=== PATIENT | male | born 1995 | race African-American/Black ===

== ENCOUNTER → 2016-10-22 | Outpatient (CLI) | payer MEDICAID ==
--- NOTE | 2016-10-22 18:41 | REP ---
Right foot four views : There is no fracture or dislocation. Mineralization and joint spaces are normal. There are no calcifications or foreign bodies. Impression: Negative right foot . Signed by Matias Valles MD 10/22/2016 06:33 P
== END ==
LOC: M LRY 18:04
PROVIDERS: ATTEND Nurse Practitioner Family
DX: M25.571 Pain in right ankle and joints of right foot (principal)

== ENCOUNTER 2017-02-19 16:41 | Emergency (ER) | payer MEDICAID, OTHER ==
[~2017-02-19] VITALS: Ht 170.2 cm; Wt 63.5 kg
[2017-02-19 16:41] VITALS: BP 147/78
[2017-02-19] MEDS ORDERED: IBUP600T26 PO (17:59)
[2017-02-19] MEDS ORDERED: CYCL10TA PO (17:59)
== END 2017-02-19 18:23 | disposition home or self-care (01) ==
LOC: M ED 18:16
DX: S46.912A Strain of unspecified muscle, fascia and tendon at shoulder and upper arm level, left arm, initial encounter (principal); S13.4XXA Sprain of ligaments of cervical spine, initial encounter; X58.XXXA Exposure to other specified factors, initial encounter; Y92.89 Other specified places as the place of occurrence of the external cause; Y93.89 Activity, other specified; Y99.9 Unspecified external cause status

== ENCOUNTER 2017-09-06 05:02 | Emergency (ER) | payer OTHER ==
[~2017-09-06] VITALS: Ht 172.7 cm; Wt 63.6 kg
[~2017-09-06 05:02] MED LIST: CYCL10TA PO; IBUP-1022 PO
[2017-09-06 06:01] LABS: ANION GAP 4 MEQ/L (8-16); BLOOD UREA NITROGEN 16 MG/DL (7-18); CALCIUM LEVEL 8.9 MG/DL (8.5-10.1); CARBON DIOXIDE LEVEL 33 MEQ/L (21-32); CHLORIDE LEVEL 103 MEQ/L (98-107); CREATININE FOR GFR 1.07 MG/DL (0.70-1.30); GLOMERULAR FILTRATION RATE > 60.0 (>60); GLUCOSE, FASTING 94 MG/DL (70-105); MAGNESIUM LEVEL 2.1 MG/DL (1.8-2.4); POTASSIUM SERUM 3.5 MEQ/L (3.5-5.1); SODIUM LEVEL 140 MEQ/L (136-145)
--- NOTE | 2017-09-06 06:32 | ECGEPIP ---
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
[2017-09-06 06:51] LABS: T UPTAKE 35 % (33-40); THYROXINE (T4) 12.7 UG/DL (4.5-12.0)
[2017-09-06 06:59] LABS: METHADONE URINE NEGATIVE (NEGATIVE)
[2017-09-06] MEDS ORDERED: ATIV1TAB7 PO (07:53)
[2017-09-06 08:11] VITALS: BP 140/86
== END 2017-09-06 08:14 | disposition home or self-care (01) ==
LOC: M ED 05:02
DX: F41.1 Generalized anxiety disorder (principal); R00.2 Palpitations; F17.210 Nicotine dependence, cigarettes, uncomplicated

== ENCOUNTER 2017-11-14 15:44 | Emergency (ER) | payer OTHER ==
[2017-11-14 16:49] LABS: KETONE, URINE AUTO RFX NEGATIVE (NEGATIVE); LEUKOCYTE ESTERASE UR AUTO RFX TRACE (NEGATIVE); NITRITE, URINE AUTO RFX NEGATIVE (NEGATIVE); RBC, URINE AUTO RFX 6 /HPF (0-3); SPECIFIC GRAVITY UR AUTO RFX 1.023 (1.002-1.035); SQUAM EPITHELIAL CELL UR AURFX 0 /HPF (0-6); WBC, URINE AUTO RFX 10 /HPF (0-3)
[2017-11-14] MEDS: AZITHROMYCIN 250 MG TAB PO (18:27)
[2017-11-14] MEDS: cefTRIAXone SOD 250 MG VIAL (J0696) IM (18:27)
[2017-11-15 12:00] LABS: CHLAMYDIA DNA AMPLIFICATION NEGATIVE (NEGATIVE); GC DNA AMPLIFICATION NEGATIVE (NEGATIVE)
== END 2017-11-14 18:30 | disposition home or self-care (01) ==
LOC: M ED 15:44
DX: Z20.2 Contact with and (suspected) exposure to infections with a predominantly sexual mode of transmission (principal); F41.9 Anxiety disorder, unspecified; Z77.098 Contact with and (suspected) exposure to other hazardous, chiefly nonmedicinal, chemicals
CPT/HCPCS: J0696

== ENCOUNTER 2017-11-16 14:23 | Emergency (ER) | payer OTHER ==
[2017-11-16 15:46] LABS: APPEARANCE, URINE CLEAR (CLEAR); BACTERIA, URINE AUTO NEGATIVE (NEGATIVE); BILIRUBIN, URINE AUTO NEGATIVE (NEGATIVE); BLOOD, URINE BLOOD NEGATIVE (NEGATIVE); COLOR, URINE YELLOW (YELLOW); GLUCOSE, URINE (UA) AUTO NEGATIVE (NEGATIVE); KETONE, URINE AUTO NEGATIVE (NEGATIVE); LEUKOCYTE ESTERASE, URINE AUTO NEGATIVE (NEGATIVE); MUCUS, URINE SMALL (NEGATIVE); NITRITE, URINE AUTO NEGATIVE (NEGATIVE); PROTEIN, URINE AUTO NEGATIVE (NEGATIVE); RBC, URINE AUTO 2 /HPF (0-3); SPECIFIC GRAVITY URINE AUTO 1.014 (1.002-1.035); SQUAMOUS EPITHELIAL CELL UR AU 0 /HPF (0-6); UROBILINOGEN, URINE AUTO 0.2 mg/dL (0.0-2.0); WBC, URINE AUTO 1 /HPF (0-3)
[2017-11-16] MEDS: PHENAZOPYRIDINE 100 MG TAB PO (16:08)
[2017-11-16] MEDS: DOXYCYCLINE HYCLATE 100 MG TAB PO (16:08)
[2017-11-16 16:58] LABS: CHLAMYDIA DNA AMPLIFICATION NEGATIVE (NEGATIVE); GC DNA AMPLIFICATION NEGATIVE (NEGATIVE)
[2017-11-17 09:53] LABS: HEPATITIS B SURFACE ANTIBODY POSITIVE (POSITIVE)
[2017-11-17 10:04] LABS: HEPATITIS B SURFACE ANTIGEN NEGATIVE (NEGATIVE)
[2017-11-17 10:32] LABS: HEPATITIS C VIRUS ABY INDEX 0.1 INDEX (<0.8)
[2017-11-17 10:32] LABS: HIV 1&2 SCREEN CENTAUR NEGATIVE (NEGATIVE)
== END 2017-11-16 16:24 | disposition home or self-care (01) ==
LOC: M ED 14:23
DX: N34.1 Nonspecific urethritis (principal); R30.0 Dysuria
CPT/HCPCS: 86706

== ENCOUNTER 2018-05-23 19:00 | Emergency (ER) | payer OTHER | END 2018-05-23 19:42 | disposition home or self-care (01) | LOC: M ED 19:00 | DX: S46.912A Strain of unspecified muscle, fascia and tendon at shoulder and upper arm level, left arm, initial encounter (principal); X58.XXXA Exposure to other specified factors, initial encounter; Y92.9 Unspecified place or not applicable; Y93.9 Activity, unspecified; Y99.9 Unspecified external cause status; F41.9 Anxiety disorder, unspecified; N48.9 Disorder of penis, unspecified; Z72.0 Tobacco use | CPT/HCPCS: 99282 ==

== ENCOUNTER 2020-01-18 16:04 | Emergency (ER) | payer OTHER ==
[~2020-01-18] VITALS: Ht 170.2 cm; Wt 68.3 kg
[~2020-01-18 16:04] MED LIST changes: +ATIV1TAB7 PO; +CYCL-707 PO; -CYCL10TA PO; +DOXY100C37 PO; +PYRI1TAB5 PO
[2020-01-18 18:21] LABS: CHLAMYDIA DNA AMPLIFICATION NEGATIVE (NEGATIVE); GC DNA AMPLIFICATION POSITIVE (NEGATIVE)
[2020-01-18 18:30] VITALS: BP 139/84
[2020-01-18] MEDS ORDERED: cefTRIAXone SOD 250MG VIAL (J0696 PER 250MG) IM ONE (18:30)
[2020-01-18] MEDS ORDERED: LIDOCAINE 1% SDV 5ML VIAL DILUENT ONE (18:30)
[2020-01-18] MEDS ORDERED: AZITHROMYCIN 250MG TABLET PO ONE (18:30)
== END 2020-01-18 18:51 | disposition home or self-care (01) ==
LOC: M ED 16:04
DX: A54.23 Gonococcal infection of other male genital organs (principal); R36.9 Urethral discharge, unspecified
CPT/HCPCS: 87661; 96372; 99283; J0696

== ENCOUNTER 2020-05-11 14:45 | Emergency (ER) | payer OTHER ==
[~2020-05-11] VITALS: Ht 172.7 cm; Wt 67.4 kg
[2020-05-11 14:45] VITALS: BP 135/89
[2020-05-11 17:46] LABS: CHLAMYDIA DNA AMPLIFICATION NEGATIVE (NEGATIVE); GC DNA AMPLIFICATION NEGATIVE (NEGATIVE)
[2020-05-12 11:52] LABS: HEPATITIS B SURFACE ANTIBODY POSITIVE (POSITIVE); HEPATITIS B SURFACE ANTIGEN NEGATIVE (NEGATIVE); HEPATITIS C VIRUS ABY INDEX 0.2 INDEX (<0.8); HIV 1&2 SCREEN CENTAUR NEGATIVE (NEGATIVE)
== END 2020-05-11 16:17 | disposition home or self-care (01) ==
LOC: M ED 14:45
DX: Z20.2 Contact with and (suspected) exposure to infections with a predominantly sexual mode of transmission (principal); F17.210 Nicotine dependence, cigarettes, uncomplicated

== ENCOUNTER → 2020-10-16 | Outpatient (CLI) | payer OTHER | LOC: CANPRECLI → M SOG 08:30 | PROVIDERS: ATTEND Orthopaedic Surgery Sports Medicine | DX: Z53.9 Procedure and treatment not carried out, unspecified reason (principal) ==

== ENCOUNTER 2020-10-19 20:28 | Emergency (ER) | payer OTHER ==
[~2020-10-19] VITALS: Ht 172.7 cm; Wt 67.0 kg
--- OUTSIDE RECORDS SUMMARY | 2020-10-19 20:37 | CCD ---
Author Author [facility] Organization [facility] Address Unknown Phone Unavailable Care Team Providers Care Authorization Manager Name Role Phone Mihai, Yarely Balbuena MD Unavailable Unavailable Mihai, Yarely Balbuena MD Unavailable Unavailable Mihai, Yarely Balbuena MD Unavailable Unavailable Mihai, Yarely Balbuena MD Unavailable Unavailable Mihai, Yarely Balbuena MD Unavailable Unavailable Mihai, Yarely Balbuena MD Unavailable Unavailable Mihai, Yarely Balbunea MD Unavailable Unavailable Mihai, Yarely Balbuena MD Unavailable Unavailable Mihai, Yarely Balbuena MD Unavailable Unavailable Mihai, Yarely Balbuena MD Unavailable Unavailable Mihai, Yarely Balbuena MD Unavailable Unavailable Mihai, Yarely Balbuena MD Unavailable Unavailable Re-disclosure Warning The records that you are about to access may contain information from federally-assisted alcohol or drug abuse programs. If such information is present, then the following federally mandated warning applies: This information has been disclosed to you from records protected by federal confidentiality rules (42 CFR part 2). The federal rules prohibit you from making any further disclosure of this information unless further disclosure is expressly permitted by the written consent of the person to whom it pertains or as otherwise permitted by 42 CFR part 2. A general authorization for the release of medical or other information is NOT sufficient for this purpose. The Federal rules restrict any use of the information to criminally investigate or prosecute any alcohol or drug abuse patient.The records that you are about to access may contain highly sensitive health information, the redisclosure of which is protected by Article 27-F of the [facility] Public Health law. If you continue you may have access to information: Regarding HIV / AIDS; Provided by facilities licensed or operated by the [facility] Office of Mental Health; or Provided by the [facility] Office for People With Developmental Disabilities. If such information is present, then the following [facility] mandated warning applies: This information has been disclosed to you from confidential records which are protected by state law. State law prohibits you from making any further disclosure of this information without the specific written consent of the person to whom it pertains, or as otherwise permitted by law. Any unauthorized further disclosure in violation of state law may result in a fine or fdc sentence or both. A general authorization for the release of medical or other information is NOT sufficient authorization for further disc losure. Encounters Encounter Providers Location Date Indications Data Source(s ) Outpatient Referrer: Sree Holm MD 03/22/2020 02:08:00 P M EDT [facility] Radiology Imaging Insurance Providers Payer name Policy type / Coverage type Policy ID Covered alliance party ID Covered alliance party's relationship to membreno Policy Membreno Plan Information [place] [employer] [facility] [id number] SP [id number] [facility] O UNAVAILABLE S UNAVAILABLE MEDICAID M [id number] S [id number] [facility] Care [facility] P [id number] S [id number] Medicaid S [id number] S [id number] [employer] [facility] [id number] SP [id number] MEDICAID [id number] SP [id number] Results ID Date Data Source [id number] 03/22/2020 12:00:00 AM EDT [facility] Imaging Sree Holm MD Patient Name: ZAID VALADEZ JPetra [facility] Date of : 1995[place][birth year] [place]alez [address] Date of Exam: 03/22/2020PH#: Fax: [phone] EXAM: LUMBSACRAL SPINE (2 OR 3 VIEWS) XRAYCLINICAL INFORMATION: Disability determination.Three views.FINDINGS:The pedicles, spinous and transverse processes were intact. Sacrum, SIjoints and ala are unremarkable. The visualized portions of the iliacwings and pubic rami are unremarkable. Lower thoracic vertebral bodies andribs intact. The lateral view shows slight loss of normal lordosis withdisc space heights maintained and no compression deformity or destructivelesion. No spondylolysis or spondylolisthesis.IMPRESSION:Very mild loss of lordosis may reflect spasm but otherwise negative exam.Jayy Denney, STAR/Reginald you for referring ZAID VALADEZ to our office. Electronically Signed - JAYY DENNEY MD 03/23/20 12:59 Name Value Range Interpretation Code Description Data Rosalinda rce(s) Supporting Document(s) Procedure
--- OUTSIDE RECORDS SUMMARY | 2020-10-19 22:21 | CCD ---
Author Author [facility] Organization [facility] Address Unknown Phone Unavailable Care Team Providers Care Chief Analytics Officer Name Role Phone Mihai, Yarely Balbuena MD [...] is protected by Article 27-F of the [facility] Public Health law. If you continue you may have access to information: Regarding HIV / AIDS; Provided by facilities licensed or operated by the [facility] Office of Mental Health; or Provided by the [facility] Office for People With Developmental Disabilities. If such information is present, then the following [facility] mandated warning applies: This information [...] law may result in a fine or fpc sentence or both. A general authorization for the release of medical or other information is NOT sufficient authorization for further disc losure. Encounters Encounter Providers Location Date Indications Data Source(s ) Outpatient Referrer: Sree Holm MD 03/22/2020 02:08:[address] [facility] Radiology Imaging Insurance Providers Payer name Policy type / Coverage type Policy ID Covered alliance party ID Covered alliance party's relationship to membreno Policy Membreno Plan Information [employer] [facility] [id number] SP [id number] [facility] O UNAVAILABLE S UNAVAILABLE MEDICAID M [id number] S [id number] [facility] P [id number] S [id number] Medicaid S [id number] S [id number] [employer] [facility] [id number] SP [id number] MEDICAID [id number] SP [id number] Results ID Date Data Source [id number] 03/22/2020 12:00:00 AM EDT [facility] ology Imaging Sree Holm MD Patient Name: ZAID VALADEZ [facility]etra [facility] Date of : 1995[place] [address] Date of Exam: 03/22/2020PH#: Fax: [phone] EXAM: [...]
[2020-10-19 23:14] LABS: CHLAMYDIA DNA AMPLIFICATION NEGATIVE (NEGATIVE); GC DNA AMPLIFICATION NEGATIVE (NEGATIVE)
[2020-10-19 23:37] VITALS: BP 138/81
== END 2020-10-19 23:38 | disposition home or self-care (01) ==
LOC: M ED 20:28
DX: Z20.2 Contact with and (suspected) exposure to infections with a predominantly sexual mode of transmission (principal); F17.210 Nicotine dependence, cigarettes, uncomplicated

== ENCOUNTER 2020-11-02 22:01 | Emergency (ER) | payer OTHER ==
[~2020-11-02] VITALS: Ht 172.7 cm; Wt 68.9 kg
--- OUTSIDE RECORDS SUMMARY | 2020-11-02 22:08 | CCD ---
Author Author [facility] Organization [facility] Address Unknown Phone Unavailable Care Team Providers Care Gunstock Repairer Name Role Phone Mihai, Yarely Balbuena MD [...] is protected by Article 27-F of the [facility] Public Health law. If you continue you may have access to information: Regarding HIV / AIDS; Provided by facilities licensed or operated by the [facility] Office of Mental Health; or Provided by the [facility] Office for People With Developmental Disabilities. If such information is present, then the following [facility] mandated warning applies: This information [...] law may result in a fine or penitentiary sentence or both. A general authorization for the release of medical or other information is NOT sufficient authorization for further disc losure. Encounters Encounter Providers Location Date Indications Data Source(s ) Outpatient Referrer: Sree Holm MD 03/22/2020 02:08:00 P M EDT [facility] Radiology Imaging Insurance Providers Payer name Policy type / Coverage type Policy ID Covered libertarian ID Covered libertarian's relationship to membreno Policy Membreno Plan Information [employer] [facility] [id number] SP [id number] [facility] O UNAVAILABLE S UNAVAILABLE MEDICAID M [id number] S [id number] [facility] P [id number] S [id number] Medicaid S [id number] S [id number] [employer] [facility] [id number] SP [id number] MEDICAID [id number] SP [id number] Results ID Date Data Source [id number] 03/22/2020 12:00:[address] [facility] ology Imaging Sree Holm MD Patient Name: ZAID VALADEZ JPetra [facility] Date of : 1995[place] gonz[place] [address] Date of Exam: 03/22/2020PH#: Fax: [phone] EXAM: [...]
--- OUTSIDE RECORDS SUMMARY | 2020-11-02 22:47 | CCD ---
Author Author [facility] Organization [facility] Address Unknown Phone Unavailable Care Team Providers Care Rip Sawyer Name Role Phone Mihai, Yarely Balbuena MD [...] is protected by Article 27-F of the [facility] Public Health law. If you continue you may have access to information: Regarding HIV / AIDS; Provided by facilities licensed or operated by the [facility] Office of Mental Health; or Provided by the [facility] Office for People With Developmental Disabilities. If such information is present, then the following [facility] mandated warning applies: This information has been [...] law may result in a fine or half-way sentence or both. A general authorization for the release of medical or other information is NOT sufficient authorization for further disc losure. Encounters Encounter Providers Location Date Indications Data Source(s ) Outpatient Referrer: Sree Holm MD 03/22/2020 02:08:00 P M EDT [facility] Radiology Imaging Insurance Providers Payer name Policy type / Coverage type Policy ID Covered republican ID Covered republican's relationship to membreno Policy Membreno Plan Information [employer] [facility] [place] [id number] SP [id number] [facility] O UNAVAILABLE S UNAVAILABLE MEDICAID M [id number] S [id number] [facility] Care [facility] P [id number] S [id number] Medicaid S [id number] [employer] [facility] [id number] SP [id number] MEDICAID [id number] SP [id number] Results ID Date Data Source [id number] 03/22/2020 12:00:00 AM EDT [facility] ology Imaging Sree Holm MD Patient Name: ZAID VALADEZ JPetra [facility] Date of : 1995Sy[place] gonzalez [id number] Date of Exam: 03/22/2020PH#: Fax: [phone] EXAM: [...]
[2020-11-02 23:00] LABS: BASO % 0.4 % (0.0-1.0); EOS # 0.1 10^3/uL (0.0-0.5); EOS % 0.6 % (0.0-3.0); HEMATOCRIT 44.7 % (42.0-52.0); HEMOGLOBIN 14.8 g/dl (13.5-17.5); LYMPH # 2.3 10^3/uL (1.5-5.0); LYMPH % 29.4 % (24.0-44.0); MEAN CORPUSCULAR HEMOGLOBIN 29.4 pg (27.0-33.0); MEAN CORPUSCULAR HGB CONC 33.1 g/dl (32.0-36.5); MEAN CORPUSCULAR VOLUME 88.9 fl (80.0-96.0); MONO # 0.4 10^3/uL (0.0-0.8); MONO % 5.3 % (0.0-5.0); NEUTROPHILS # 4.9 10^3/uL (1.5-8.5); NEUTROPHILS % 64.2 % (36.0-66.0); PLATELET COUNT, AUTOMATED 296 10^3/uL (150-450); RED BLOOD COUNT 5.03 10^6/uL (4.30-6.10); WHITE BLOOD COUNT 7.7 10^3/uL (4.0-10.0)
[2020-11-02] MEDS ORDERED: ACETAMINOPHEN 500 MG TAB PO ONE (23:00)
[2020-11-02 23:04] LABS: APPEARANCE, URINE HAZY (CLEAR); BACTERIA, URINE AUTO NEGATIVE (NEGATIVE); BILIRUBIN, URINE AUTO NEGATIVE (NEGATIVE); BLOOD, URINE BLOOD NEGATIVE (NEGATIVE); COLOR, URINE YELLOW (YELLOW); GLUCOSE, URINE (UA) AUTO NEGATIVE (NEGATIVE); KETONE, URINE AUTO TRACE mg/dL (NEGATIVE); LEUKOCYTE ESTERASE, URINE AUTO NEGATIVE (NEGATIVE); MUCUS, URINE LARGE (NEGATIVE); NITRITE, URINE AUTO NEGATIVE (NEGATIVE); PROTEIN, URINE AUTO 1+ mg/dL (NEGATIVE); RBC, URINE AUTO 1 /HPF (0-3); SPECIFIC GRAVITY URINE AUTO 1.033 (1.002-1.035); SQUAMOUS EPITHELIAL CELL UR AU 1 /HPF (0-6); WBC, URINE AUTO 2 /HPF (0-3)
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
[2020-11-03 00:46] VITALS: BP 135/75
[2020-11-03 01:58] LABS: CHLAMYDIA DNA AMPLIFICATION NEGATIVE (NEGATIVE); GC DNA AMPLIFICATION NEGATIVE (NEGATIVE)
[2020-11-03 10:34] LABS: HEPATITIS B SURFACE ANTIBODY POSITIVE (POSITIVE); HEPATITIS B SURFACE ANTIGEN NEGATIVE (NEGATIVE); HEPATITIS C VIRUS ABY INDEX 0.1 INDEX (<0.8); HIV 1&2 SCREEN CENTAUR NEGATIVE (NEGATIVE)
== END 2020-11-03 00:47 | disposition home or self-care (01) ==
LOC: M ED 22:01
DX: S46.912A Strain of unspecified muscle, fascia and tendon at shoulder and upper arm level, left arm, initial encounter (principal); S16.1XXA Strain of muscle, fascia and tendon at neck level, initial encounter; S39.012A Strain of muscle, fascia and tendon of lower back, initial encounter; V49.49XA Driver injured in collision with other motor vehicles in traffic accident, initial encounter; Y92.410 Unspecified street and highway as the place of occurrence of the external cause; Z20.2 Contact with and (suspected) exposure to infections with a predominantly sexual mode of transmission; F41.9 Anxiety disorder, unspecified; F17.210 Nicotine dependence, cigarettes, uncomplicated

== ENCOUNTER 2020-12-19 14:15 | Outpatient (RCR) | payer OTHER | END 2020-12-20 | LOC: M PT 14:15 | PROVIDERS: ATTEND Orthopaedic Surgery Sports Medicine | DX: M75.42 Impingement syndrome of left shoulder (principal) ==

== ENCOUNTER → 2020-12-27 | Outpatient (REF) | payer OTHER ==
[~2020-12-27] MED LIST changes: +FLAG500T PO
[2020-12-27 13:14] LABS: BASO # 0.1 10^3/uL (0.0-0.2); BASO % 0.7 % (0.0-1.0); EOS # 0.1 10^3/uL (0.0-0.5); EOS % 0.7 % (0.0-3.0); HEMATOCRIT 47.4 % (42.0-52.0); HEMOGLOBIN 15.8 g/dl (13.5-17.5); LYMPH # 2.1 10^3/uL (1.5-5.0); MEAN CORPUSCULAR HEMOGLOBIN 30.7 pg (27.0-33.0); MEAN CORPUSCULAR HGB CONC 33.3 g/dl (32.0-36.5); MONO # 0.3 10^3/uL (0.0-0.8); MONO % 4.8 % (2.0-8.0); NEUTROPHILS # 4.5 10^3/uL (1.5-8.5); NEUTROPHILS % 63.5 % (36.0-66.0); PLATELET COUNT, AUTOMATED 294 10^3/uL (150-450); RED BLOOD COUNT 5.15 10^6/uL (4.30-6.10); WHITE BLOOD COUNT 7.1 10^3/uL (4.0-10.0)
[2020-12-27 14:00] LABS: ALBUMIN 4.2 GM/DL (3.2-5.2); ALT/SGPT 14 U/L (12-78); BILIRUBIN,TOTAL 0.6 MG/DL (0.2-1.0); BLOOD UREA NITROGEN 12 MG/DL (7-18); CALCIUM LEVEL 9.4 MG/DL (8.5-10.1); CARBON DIOXIDE LEVEL 29 MEQ/L (21-32); CHLORIDE LEVEL 106 MEQ/L (98-107); CHOLESTEROL LEVEL 174 MG/DL (<200); CHOLESTEROL RISK RATIO 3.954 (<5); GLOMERULAR FILTRATION RATE > 60.0 (>60); GLUCOSE, FASTING 78 MG/DL (70-100); HDL CHOLESTEROL 44 MG/DL (>40); LDL CHOLESTEROL 113 MG/DL (<100); NON-HDL-C 130 MG/DL; POTASSIUM SERUM 4.3 MEQ/L (3.5-5.1); SODIUM LEVEL 141 MEQ/L (136-145); TOTAL PROTEIN 7.8 GM/DL (6.4-8.2); TRIGLYCERIDES LEVEL 87 MG/DL (<150)
[2020-12-27 14:28] LABS: HEPATITIS C VIRUS ABY INDEX < 0.0 INDEX (<0.8)
[2020-12-27 14:29] LABS: HIV 1&2 SCREEN CENTAUR NEGATIVE (NEGATIVE)
== END ==
LOC: M LAB REF 11:30
PROVIDERS: ATTEND Pediatrics
DX: Z11.3 Encounter for screening for infections with a predominantly sexual mode of transmission (principal); Z13.220 Encounter for screening for lipoid disorders; Z76.89 Persons encountering health services in other specified circumstances

== ENCOUNTER 2021-01-01 14:19 | Emergency (ER) | payer OTHER ==
[~2021-01-01] VITALS: Ht 170.2 cm; Wt 68.6 kg
[~2021-01-01 14:19] MED LIST changes: -FLAG500T PO
[2021-01-01 16:43] LABS: CHLAMYDIA DNA AMPLIFICATION POSITIVE (NEGATIVE); GC DNA AMPLIFICATION POSITIVE (NEGATIVE)
[2021-01-01] MEDS ORDERED: cefTRIAXone 500MG VIAL (J0696 PER 250MG) IM ONE (17:35)
[2021-01-01] MEDS ORDERED: LIDOCAINE 1% SDV 5ML VIAL DILUENT ONE (17:35)
[2021-01-01] MEDS ORDERED: FLAG500T PO (17:37)
[2021-01-01] MEDS ORDERED: DOXY100C37 PO (17:38)
[2021-01-01 18:59] VITALS: BP 126/93
== END 2021-01-01 19:01 | disposition home or self-care (01) ==
LOC: M ED 14:19
DX: N49.1 Inflammatory disorders of spermatic cord, tunica vaginalis and vas deferens (principal); A74.9 Chlamydial infection, unspecified; A54.9 Gonococcal infection, unspecified
CPT/HCPCS: 87661; 99283; J0696

== ENCOUNTER 2021-01-09 14:15 | Outpatient (RCR) | payer OTHER ==
[~2021-01-09 14:15] MED LIST changes: +FLAG500T PO
== END 2021-01-19 ==
LOC: M PT 14:15
PROVIDERS: ATTEND Orthopaedic Surgery Sports Medicine
DX: M75.42 Impingement syndrome of left shoulder (principal)

== ENCOUNTER → 2021-02-14 | Outpatient (CLI) | payer OTHER ==
[2021-02-14 17:31] LABS: BASO % 0.4 % (0.0-1.0); EOS % 0.3 % (0.0-3.0); HEMATOCRIT 45.8 % (42.0-52.0); HEMOGLOBIN 15.4 g/dl (13.5-17.5); LYMPH % 18.9 % (24.0-44.0); MEAN CORPUSCULAR HEMOGLOBIN 30.3 pg (27.0-33.0); MEAN CORPUSCULAR HGB CONC 33.6 g/dl (32.0-36.5); MONO # 0.4 10^3/uL (0.0-0.8); NEUTROPHILS # 7.8 10^3/uL (1.5-8.5); PLATELET COUNT, AUTOMATED 281 10^3/uL (150-450); RED BLOOD COUNT 5.09 10^6/uL (4.30-6.10); WHITE BLOOD COUNT 10.3 10^3/uL (4.0-10.0)
[2021-02-14 18:51] LABS: HEPATITIS B SURFACE ANTIBODY POSITIVE (POSITIVE); HEPATITIS B SURFACE ANTIGEN NEGATIVE (NEGATIVE); HEPATITIS C VIRUS ABY INDEX 0.1 INDEX (<0.8); HIV 1&2 SCREEN CENTAUR NEGATIVE (NEGATIVE)
[2021-02-16 05:07] LABS: HEPATITIS B CORE ANTIBODY IGG Negative (Negative); HSV TYPE I IgG SPECIFIC <0.91 index (0.00-0.90)
== END ==
LOC: M LAB 16:17
PROVIDERS: ATTEND Pediatrics
DX: Z86.19 Personal history of other infectious and parasitic diseases (principal)

== ENCOUNTER 2021-02-15 15:00 | Outpatient (RCR) | payer OTHER | END 2021-02-19 | LOC: M PT 15:00 | PROVIDERS: ATTEND Orthopaedic Surgery Sports Medicine | DX: M75.42 Impingement syndrome of left shoulder (principal) ==

== ENCOUNTER 2021-02-20 11:50 | Outpatient (RCR) | payer OTHER ==
[~2021-02-20 11:50] MED LIST changes: -DOXY100C37 PO; +DOXY1CAP62 PO
== END 2021-03-21 ==
LOC: M PT 11:50
PROVIDERS: ATTEND Orthopaedic Surgery Sports Medicine
DX: M75.42 Impingement syndrome of left shoulder (principal)

== ENCOUNTER 2021-03-27 17:51 | Emergency (ER) | payer OTHER ==
[~2021-03-27] VITALS: Ht 170.2 cm; Wt 68.3 kg
[2021-03-27 17:51] VITALS: BP 144/85
[2021-03-27 20:54] LABS: HEPATITIS B SURFACE ANTIBODY POSITIVE (POSITIVE); HEPATITIS B SURFACE ANTIGEN NEGATIVE (NEGATIVE)
[2021-03-27 21:36] LABS: GC DNA AMPLIFICATION NEGATIVE (NEGATIVE)
[2021-03-28 10:02] LABS: HIV 1&2 SCREEN CENTAUR NEGATIVE (NEGATIVE)
== END 2021-03-27 20:48 | disposition home or self-care (01) ==
LOC: M ED 17:51
DX: Z11.3 Encounter for screening for infections with a predominantly sexual mode of transmission (principal); F17.200 Nicotine dependence, unspecified, uncomplicated

== ENCOUNTER 2021-05-03 21:19 | Emergency (ER) | payer OTHER ==
[~2021-05-03] VITALS: Ht 172.7 cm; Wt 69.0 kg
[2021-05-03 23:06] LABS: GC DNA AMPLIFICATION NEGATIVE (NEGATIVE)
[2021-05-04 01:45] VITALS: BP 137/89
== END 2021-05-04 01:48 | disposition home or self-care (01) ==
LOC: M ED 21:19
DX: Z20.2 Contact with and (suspected) exposure to infections with a predominantly sexual mode of transmission (principal); F17.210 Nicotine dependence, cigarettes, uncomplicated

== ENCOUNTER → 2021-07-25 | Outpatient (REF) | payer OTHER ==
[~2021-07-25] MED LIST changes: +DOXY-443 PO; -DOXY1CAP62 PO
[2021-07-25 19:03] LABS: GC DNA AMPLIFICATION NEGATIVE (NEGATIVE)
== END ==
LOC: M LAB REF 17:03
PROVIDERS: ATTEND Pediatrics
DX: Z11.3 Encounter for screening for infections with a predominantly sexual mode of transmission (principal); A64 Unspecified sexually transmitted disease; R36.9 Urethral discharge, unspecified

== ENCOUNTER 2021-08-07 02:46 | Emergency (ER) | payer OTHER ==
[~2021-08-07] VITALS: Ht 170.2 cm; Wt 63.6 kg
--- OUTSIDE RECORDS SUMMARY | 2021-08-07 02:53 | CCD ---
Author Organization Unknown Address [address] [place] [address] Phone [phone] Care Team Providers Care Medical Lead Name Role Phone [facility] 212 [phone] Allergies Code Code System Name Reaction Severity Status Onset NKDA Medications Name Status Start Date Stop Date doxycycline hyclate 100 mg capsule Take 1 capsule twice a day by oral route for 7 days. Active Not available doxycycline monohydrate 100 mg capsule TAKE ONE CAPSULE BY MOUTH EVERY 12 HOURS Completed 02/14/2021 metronidazole 500 mg tablet TAKE ONE TABLET BY MOUTH TWICE A DAY Completed naproxen 500 mg tablet TAKE ONE TABLET BY MOUTH TWICE A DAY Completed tizanidine 4 mg tablet TAKE ONE TABLET BY MOUTH THREE TIMES A DAY NEEDED Active Not available Problems Name Status Onset Date Source Generalized Anxiety Disorder Active 10/07/2017 His tory Nicotine Dependence Active 10/07/2017 History Body Measurement Finding Unknown 10/07/2017 History Nongonococcal Urethritis Unknown 11/17/2017 History Disorder of Penis Unknown 11/17/2017 History Dysuria Unknown 11/17/2017 History Tobacco Use and Exposure - Finding Unknown 11/17/2017 History Body Measurement Finding Unknown 11/17/2017 History Neck Pain Active 12/27/2020 Pain in Left Arm Active 12/27/2020 History of Sexually Transmitted Disease Active 05/14/20 21 Procedures Notes: No known surgical history Results Lab Results Date Name Specimen Result Interpretation Description Value Range Status Address 07/25/2021 CT + NG DNA, Qual, PCR, Unspecified Specimen Urine Hi gh Chlamydia DNA Amplification positive negative Final [facility]: [address] [facility] Urine Normal GC DNA Amplification negative negati ve Final [facility]: [address] [facility] 03/27/2021 UA W/ Reflex to Culture Normal Appearance, Urine Rfx clear clear Final [facility]: [address] [facility] Normal Color, Urine Rfx yellow yellow Final [facility]: [address] [facility] Normal pH,urine Rfx 6.0 units 5.0-9.0 units [facility]: [address] [facility] Normal Specific [place] Ur Auto Rfx 1.021 1.002-1.035 [facility]: [address] [facility] Normal Protein, Urine Auto Rfx negative mg/ dL negative mg/dL [facility]: [address] [facility] Normal Glucose, Urine (UA) Auto Rfx n egative mg/dL negative mg/dL [facility]: [address] [facility] Normal Ketone, Urine Auto Rfx negative mg/d L negative mg/dL [facility]: [address] [facility] High Urobilinogen, Urine Auto Rfx 2.0 mg/ dL 0.0-2.0 mg/dL [facility]: [address] [facility] Normal Bilirubin, Urine Auto Rfx negative n egative [facility]: [address] [facility] Normal Nitrite, Urine Auto Rfx negative neg ative [facility]: [address] [facility] Normal Leukocyte Esterase Ur Auto Rfx negat simone negative [facility]: [address] [facility] Normal Blood, Urine Blood Rfx negative nega tive [facility]: [address] [facility] Normal WBC, Urine Auto Rfx 0 /hpf 0-3 /hpf [facility]: [address] [facility] Normal RBC, Urine Auto Rfx 0 /hpf 0-3 /hpf [facility]: [address] [facility] Normal Bacteria, Urine Auto Rfx negative ne gative [facility]: [address] [facility] Normal Squam Epithelial Cell Ur Aurfx 0 /hp f 0-6 /hpf [facility]: [address] [facility] Normal Mucus, Urine Rfx small negative Fin [facility]: [address] [facility] Normal Hyaline Cast, Urine Auto Rfx 0 /lpf 0-1 /lpf [facility]: [address] [facility] 03/27/2021 Chlamydia, GC & Trich Amp Normal Ch lamydia DNA Amplification negative negative [facility] nter: [address] [facility] Normal GC DNA Amplification negative negati ve [facility]: [address] [facility] Normal Trichomonas Vaginalis (Amp) not dete cted negative [facility]: 0 [facility] 03/27/2021 Hepatitis C Ab, Serum Normal Hepati tis C Virus Myra Index 0.0 index <0.8 index [facility] nter: [address] [facility] 03/27/2021 HBsAg (Hepatitis B Surface Ag), Serum Normal Hepatitis B Surface Antigen negative negative [facility] Center: [address] [place] [address] 03/27/2021 Hepatitis B Surface Ab, Qualitative, Serum Norm al Hepatitis B Surface Antibody positive positive [facility]: 0 [facility] 03/27/2021 Syphilis Normal Syphilis nonreactive nonreacti ve [facility]: 0 [facility] 03/27/2021 HIV 1+2 AB + HIV 1 P24 Ag, Qualitative Immunoassay, Serum Normal HIV 1&2 Screen Centaur negative negative [facility]: 0 [facility] 02/14/2021 CBC W/ Auto Diff High White Blood Count 10.3 10 4.0-10.0 10 [facility]: 0 [facility] Normal Red Blood Count 5.09 10 4.30-6.10 10 [facility]: 0 [facility] Normal Hemoglobin 15.4 g/dL 13.5-17.5 g/dL [facility]: 0 [facility] Normal Hematocrit 45.8 % 42.0-52.0 % [facility]: 0 [facility] Normal Mean Corpuscular Volume 90.0 fL 80.0 -96.0 fL [facility]: 0 [facility] Normal Mean Corpuscular Hemoglobin 30.3 pg 27.0-33.0 pg Final [facility]: [address] [facility] Normal Mean Corpuscular HGB Conc 33.6 g/dL 32.0-36.5 g/dL Final [facility]: [address] [facility] Normal Red Cell Distribution Width 11.6 % 1 1.5-14.5 % [facility]: [address] [facility] Normal Platelet Count, Automated 281 10 150 -450 10 [facility]: [address] [facility] High Neutrophils % 76.0 % 36.0-66.0 % [facility]: [address] [facility] Low Lymph % 18.9 % 24.0-44.0 % Final [facility]: [address] [facility] Normal [place] % 4.0 % 2.0-8.0 % Final [facility]: [address] [facility] Normal Eos % 0.3 % 0.0-3.0 % [facility]: [address] [facility] Normal Baso % 0.4 % 0.0-1.0 % [facility]: [address] [facility] Normal Immature Granulocyte % 0.4 % 0-3.0 % [facility]: 0 [facility] Normal Nucleated Red Blood Cell % 0.0 % 0- 0 % [facility]: [address] [facility] Normal Neutrophils # 7.8 10 1.5-8.5 10 [facility]: [address] [facility] Normal Lymph # 2.0 10 1.5-5.0 10 [facility]: [address] [facility] Normal [place] # 0.4 10 0.0-0.8 10 [facility]: [address] [facility] Normal Eos # 0.0 10 0.0-0.5 10 [facility]: [address] [facility] Normal Baso # 0.0 10 0.0-0.2 10 [facility]: [address] [facility] 02/14/2021 Hepatitis C Ab, Serum Normal Hepati tis C Virus Myra Index 0.1 index <0.8 index Final [facility] nter: [address] [facility] 02/14/2021 HBsAg (Hepatitis B Surface Ag), Serum Normal Hepatitis B Surface Antigen negative negative Final [facility]: [address] [facility] 02/14/2021 Hepatitis B Surface Ab, Qualitative, Serum Norm al Hepatitis B Surface Antibody positive positive Final [facility] Center: [address] [facility] 02/14/2021 Syphilis Normal Syphilis nonreactive nonreacti ve Final [facility]: [address] [facility] 02/14/2021 HIV 1+2 AB + HIV 1 P24 Ag, Qualitative Immunoassay, Serum Normal HIV 1&2 Screen Centaur negative negative Final [facility]: [address] [facility] 02/14/2021 Hsv Type 1&2 IgG Specific Normal Hs v Type I IgG Specific <0.91 index 0.00-0.90 index [facility] nter: [address] [facility] Hsv Type II IgG Specific 14.80 index 0.00-0.90 index Final [facility]: [address] [facility] 02/14/2021 Hepatitis B Core Antibody IgG Normal Hepatitis B Core Antibody IgG negative negative Final [facility]: [address] [facility] 02/14/2021 Chlamydia & GC DNA Probes Normal Chlamydia DNA Probe negative negative Final [facility]: [address] [facility] Normal GC DNA Probe negative negative Final [facility]: [address] [facility] 01/01/2021 Chlamydia, GC & Trich Amp High Ch lamydia DNA Amplification positive negative Final [facility] nter: [address] [facility] High GC DNA Amplification positive negati ve [facility]: [address] [facility] High Trichomonas Vaginalis (Amp) positive negative Final [facility]: [address] [facility] 12/27/2020 CBC W/ Auto Diff Blood venous Normal White Blood C ount 7.1 10 4.0-10.0 10 [facility]: [address] [facility] Blood venous Normal Red Blood Count 5.15 10 4.30- 6.10 10 [facility]: [address] [facility] Blood venous Normal Hemoglobin 15.8 g/dL 13.5-17. 5 g/dL [facility]: [address] [facility] Blood venous Normal Hematocrit 47.4 % 42.0-52.0 % [facility]: [address] [facility] Blood venous Normal Mean Corpuscular Volume 92.0 fL 80.0-96.0 fL [facility]: [address] [facility] Blood venous Normal Mean Corpuscular Hemoglob in 30.7 pg 27.0-33.0 pg [facility]: [address] [facility] Blood venous Normal Mean Corpuscular HGB Conc 33.3 g/dL 32.0-36.5 g/dL [facility]: [address] [facility] Blood venous Normal Red Cell Distribution Wid th 12.2 % 11.5-14.5 % [facility]: [address] [facility] Blood venous Normal Platelet Count, Automated 294 10 150-450 10 [facility]: [address] [facility] Blood venous Normal Neutrophils % 63.5 % 36.0-66. 0 % [facility]: [address] [facility] Blood venous Normal Lymph % 30.0 % 24.0-44.0 % [facility]: [address] [facility] Blood venous Normal [place] % 4.8 % 2.0-8.0 % [facility]: [address] [facility] Blood venous Normal Eos % 0.7 % 0.0-3.0 % [facility]: [address] [facility] Blood venous Normal Baso % 0.7 % 0.0-1.0 % [facility]: 0 [facility] Blood venous Normal Immature Granulocyte % 0.3 % 0-3.0 % [facility]: [address] [place] [address] Blood venous Normal Nucleated Red Blood Cell % 0. 0 % 0-0 % [facility]: [address] [place] [address] Blood venous Normal Neutrophils # 4.5 10 1.5-8.5 10 [facility]: [address] [place] [address] Blood venous Normal Lymph # 2.1 10 1.5-5.0 10 [facility]: [address] [place] [address] Blood venous Normal [place] # 0.3 10 0.0-0.8 10 [facility]: [address] [place] [address] Blood venous Normal Eos # 0.1 10 0.0-0.5 10 [facility]: [address] [place] [address] Blood venous Normal Baso # 0.1 10 0.0-0.2 10 [facility]: [address] [place] [address] 12/27/2020 CMP, Serum or Plasma Blood venous Normal Glu cose, Fasting 78 mg/dL 70-100 mg/dL [facility] nter: [address] [place] [address] Blood venous Normal Blood Urea Nitrogen 12 mg/dL 7-18 mg/dL [facility]: [address] [place] [address] Blood venous Normal Creatinine for GFR 1.00 mg/dL 0.70-1.30 mg/dL [facility]: [address] [place] [address] Blood venous Normal Glomerular Filtration Rate > 60.0 >60 [facility]: [address] [place] [address] Blood venous Normal Sodium Level 141 mEq/L 136-14 5 mEq/L [facility]: [address] [place] [address] Blood venous Normal Potassium Serum 4.3 mEq/L 3.5 -5.1 mEq/L [facility]: [address] [place] [address] Blood venous Normal Chloride Level 106 mEq/L 98-1 07 mEq/L [facility]: [address] [place] [address] Blood venous Normal Carbon Dioxide Level 29 mEq/L 21-32 mEq/L [facility]: [address] [place] [address] Blood venous Low Anion Gap 6 mEq/L 8-16 mEq/L [facility]: [address] [facility] Blood venous Normal Calcium Level 9.4 mg/dL 8.5-1 0.1 mg/dL Final [facility]: [address] [facility] Blood venous Normal AST/SGOT 7 U/L 7-37 U/L Macarena l [facility]: [address] [facility] Blood venous Normal ALT/SGPT 14 U/L 12-78 U/L [facility]: [address] [facility] Blood venous Normal Alkaline Phosphatase 68 U/L 4 5-117 U/L [facility]: [address] [facility] Blood venous Normal Bilirubin,total 0.6 mg/dL 0.2 -1.0 mg/dL [facility]: [address] [facility] Blood venous Normal Total Protein 7.8 gm/dL 6.4-8 .2 gm/dL [facility]: [address] [facility] Blood venous Normal Albumin 4.2 gm/dL 3.2-5.2 gm/ dL [facility]: [address] [facility] Blood venous Normal Albumin/globulin Ratio 1.2 [facility]: [address] [facility] 12/27/2020 Hepatitis C Ab, Serum Normal Hepati tis C Virus Myra Index < 0.0 index <0.8 index [facility] nter: [address] [facility] 12/27/2020 Lipid Panel, Blood Normal Triglycerides Lev el 87 mg/dL <150 mg/dL [facility]: [address] [facility] Normal Cholesterol Level 174 mg/dL <200 mg/ dL [facility]: [address] [facility] Normal HDL Cholesterol 44 mg/dL >40 mg/dL F inal [facility]: [address] [facility] High LDL Cholesterol 113 mg/dL <100 mg/dL [facility]: [address] [facility] Normal Non-hdl-c 130 mg/dL [facility]: [address] [facility] Normal Cholesterol Risk Ratio 3.954 <5 Final [facility]: [address] [facility] 12/27/2020 TSH, Serum or Plasma Blood venous Normal Thyroid Stimulating Hormone 1.860 uIU/mL 0.358-3.740 uIU/mL Final [facility]: [address] [facility] 12/27/2020 Syphilis Normal Syphilis nonreactive nonreacti ve Final [facility]: [address] [facility] 12/27/2020 HIV 1+2 AB + HIV 1 P24 Ag, Qualitative Immunoassay, Serum Normal HIV 1&2 Screen Centaur negative negative Final [facility]: [address] [facility] 12/27/2020 Chlamydia & GC DNA Probes Normal Chlamydia DNA Probe negative negative Final [facility]: [address] [facility] Normal GC DNA Probe negative negative Final [facility]: [address] [facility] 12/27/2020 Chlamydia & GC DNA Probes Normal Chlamydia DNA Probe negative negative Final [facility]: [address] [facility] Normal GC DNA Probe negative negative Final [facility]: [address] [facility] Unlisted Lab Blood venous No observation recorded. [facility]: [address] [facility] RPR (Rapid Plasma Reagin), Serum Blood venous N o observation recorded. [facility]: [address] [facility] Hepatitis C Antibody and HIV 1/2, Screen and Diagnostic Panel W/reflexes Blood venous Hepatitis C Antibody nonreactive nonreactive Fin al [facility]: [address] [facility] Blood venous Index 0.02 ratio <1.00 ratio Final [facility] [address] [facility] Blood venous HIV Ag/Ab, 4TH Gen non-reacti ve non-reactive Final [facility]: [address] [facility] Increased Risk Panel Urine ABNORMAL Chlamydia Trachomatis RNA, Tma, Urogenital detected not detected Final [facility]: [address] [facility] Urine Neisseria Gonorrhoeae RNA, Tma, Urogenital not detected not detected Final [facility]: [address] [facility] Urine sureswab(R) Trichomonas Vaginal is RNA, Ql, Tma not detected not detected Final [facility] [address] , [place] Urine Mycoplasma Genitalium, Rrna, Tm a not detected not detected Final [facility]: [address] , [place] Urine Assay Details see note [facility]: [address], [place] RPR (Rapid Plasma Reagin), Serum Blood venous Normal RPR (DX) W/refl Titer and Confirmatory Testing non-reactive non-reactive Final [facility]: [address], [place] Past Encounters 07/25/2021 Padmini Lovett MD: [address] [place] [phone], Ph. 07/18/2021 Tye Apodaca MD: [address] [place] [phone], Ph. 02/14/2021 Nicotine Dependence; History of Sexually Transmitted Disease; Painless Rectal Bleeding Padmini Lovett MD: [address] [place] [phone], Ph. 12/27/2020 Nicotine Dependence; Patient New to Facility; Venereal Disease Screening; Pain in Left Arm; Neck Pain; Hyperlipidemia Screening; Adult Health Examination Padmini Lovett MD: [address] [place] [phone], Ph. Social History Tobacco Smoking Status Heavy Tobacco Smoker (1/2 pack per da y) Vaccine List None recorded. Plan of Care Reminders Provider Appointments None recorded. Lab None recorded. Referral None recorded. Procedures None recorded. Surgeries None recorded. Imaging None recorded. Vitals 07/25/2021 01:00PM NURSE Height 68 in 07/18/2021 01:00PM NURSE LAB COLLECTION Height 68 in 02/14/2021 03:00PM ESTABLISHED [id number] Height Weight BMI Blood Pressure 68 in 154 lbs 6.4 oz 23.5 kg/m2 137/99 mm[Hg ] 12/27/2020 08:20AM NEW PATIENT (11yrs - OLDER) Height Weight BMI Blood Pressure 68 in 151 lbs 12.8 oz 23.1 kg/m2 127/85 mm[H g]
--- OUTSIDE RECORDS SUMMARY | 2021-08-07 02:53 | CCD ---
Author Author [facility] Organization [facility] Address Unknown Phone Unavailable Care Team Providers Care Buyer Assistant Name Role Phone Kirstin Apodaca MD Unavailable Unavailable Kirstin Apodaca MD Unavailable Unavailable Kirstin Apodaca MD Unavailable Unavailable Kirstin Apodaca MD Unavailable Unavailable Kirstin Apodaca MD Unavailable Unavailable Kirstin Apodaca MD Unavailable Unavailable Kirstin Apodaca MD Unavailable Unavailable Kirstin Apodaca MD Unavailable Unavailable Kirstin Apodaca MD Unavailable Unavailable Kirstin Apodaca MD Unavailable Unavailable Kirstin Apodaca MD Unavailable Unavailable Kirstin Apodaca MD Unavailable Unavailable Kirstin Apodaca MD Unavailable Unavailable Kirstin Apodaca MD Unavailable Unavailable Kirstin Apodaca MD Unavailable Unavailable Kirstin Apodaca MD Unavailable Unavailable Kirstin Apodaca MD Unavailable Unavailable Kirstin Apodaca MD Unavailable Unavailable Kirstin Apodaca MD Unavailable Unavailable Kirstin Apodaca MD Unavailable Unavailable Kirstin Apodaca MD Unavailable Unavailable Kirstin Apodaca MD Unavailable Unavailable Kirstin Apodaca MD Unavailable Unavailable Kirstin Apodaca MD Unavailable Unavailable Kirstin Apodaca MD Unavailable Unavailable Kirstin Apodaca MD Unavailable Unavailable Kirstin Apodaca MD Unavailable Unavailable Kirstin Apodaca MD Unavailable Unavailable Kirstin Apodaca MD Unavailable Unavailable Kirstin Apodaca MD Unavailable Unavailable Kirstin Apodaca MD Unavailable Unavailable Kirstin Apodaca MD Unavailable Unavailable Kirstin Apodaca MD Unavailable Unavailable Kirstin Apodaca MD Unavailable Unavailable Kirstin Apodaca MD Unavailable Unavailable Kirstin Apodaca MD Unavailable Unavailable Kirstin Apodaca MD Unavailable Unavailable Kirstin Apodaca MD Unavailable Unavailable Kirstin Apodaca MD Unavailable Unavailable Kirstin Apodaca MD Unavailable Unavailable Kirstin Apodaca MD Unavailable Unavailable Kirstin Apodaca MD Unavailable Unavailable Kirstin Apodaca MD Unavailable Unavailable Kirstin Apodaca MD Unavailable Unavailable Kirstin Apodaca MD Unavailable Unavailable Kirstin Apodaca MD Unavailable Unavailable Kirstin Apodaca MD Unavailable Unavailable Kirstin Apodaca MD Unavailable Unavailable Kirstin Apodaca MD Unavailable Unavailable Kirstin Apodaca MD Unavailable Unavailable Kirstin Apodaca MD Unavailable Unavailable Kirstin Apodaca MD Unavailable Unavailable Kirstin Apodaca MD Unavailable Unavailable Kirstin Apodaca MD Unavailable Unavailable Kirstin Apodaca MD Unavailable Unavailable Kirstin Apodaca MD Unavailable Unavailable Kirstin Apodaca MD Unavailable Unavailable Kirstin Apodaca MD Unavailable Unavailable Kirstin Apodaca MD Unavailable Unavailable Kirstin Apodaca MD Unavailable Unavailable Kirstin Apodaca MD Unavailable Unavailable Kirstin Apodaca MD Unavailable Unavailable Kirstin Apodaca MD Unavailable Unavailable Kirstin Apodaca MD Unavailable Unavailable Kirstin Apodaca MD Unavailable Unavailable Kirstin Apodaca MD Unavailable Unavailable Kirstin Apodaca MD Unavailable Unavailable Kirstin Apodaca MD Unavailable Unavailable Kirstin Apodaca MD Unavailable Unavailable Kirstin Apodaca MD Unavailable Unavailable Kirstin Apodaca MD Unavailable Unavailable Kirstin Apodaca MD Unavailable Unavailable Kirstin Apodaca MD Unavailable Unavailable Kirstin Apodaca MD Unavailable Unavailable Kirstin Apodaca MD Unavailable Unavailable Kirstin Apodaca MD Unavailable Unavailable Kirstin Apodaca MD Unavailable Unavailable Kirstin Apodaca MD Unavailable Unavailable Kirstin Apodaca MD Unavailable Unavailable Kirstin Apodaca MD Unavailable Unavailable Kirstin Apodaca MD Unavailable Unavailable Kirstin Apodaca MD Unavailable Unavailable Kirstin Apodaca MD Unavailable Unavailable Kirstin Apodaca MD Unavailable Unavailable Kirstin Apodaca MD Unavailable Unavailable Kirstin Apodaca MD Unavailable Unavailable Kirstin Apodaca MD Unavailable Unavailable Kirstin Apodaca MD Unavailable Unavailable Kirstin Apodaca MD Unavailable Unavailable Kirstin Apodaca MD Unavailable Unavailable Kirstin Apodaca MD Unavailable Unavailable Kirstin Apodaca MD Unavailable Unavailable Kirstin Apodaca MD Unavailable Unavailable Heather Núñez MD Unavailable Unavailable Heather Núñez MD Unavailable Unavailable Heather Núñez MD Unavailable Unavailable Heather Núñez MD Unavailable Unavailable Heather Núñez MD Unavailable Unavailable Heather Núñez MD Unavailable Unavailable Heather Núñez MD Unavailable Unavailable Heather Núñez MD Unavailable Unavailable Heather Núñez MD Unavailable Unavailable Heather Núñez MD Unavailable Unavailable Heather Núñez MD Unavailable Unavailable Heather Núñez MD Unavailable Unavailable Heather Núñez MD Unavailable Unavailable Heather Núñez MD Unavailable Unavailable Bolla, S Augustine BEAR Unavailable Unavailable Bolla, S Augustine BEAR Unavailable Unavailable Bolla, S Augustine BEAR Unavailable Unavailable Bolla, S Augustine BEAR Unavailable Unavailable Bolla, S Augustine MD Unavailable Unavailable Bolla, S Augustine BEAR Unavailable Unavailable Bolla, S Augustine BEAR Unavailable Unavailable Bolla, S Augustine BEAR Unavailable Unavailable Bolla, S Augustine BEAR Unavailable Unavailable Bolla, S Augustine BEAR Unavailable Unavailable Bolla, S Augustine BEAR Unavailable Unavailable Bolla, S Augustine BEAR Unavailable Unavailable Bolla, S Augustine BEAR Unavailable Unavailable Bolla, S Augustine BEAR Unavailable Unavailable Bolla, S Augustine BEAR Unavailable Unavailable Bolla, S Augustine BEAR Unavailable Unavailable Bolla, S Augustine BEAR Unavailable Unavailable Bolla, S Augustine BEAR Unavailable Unavailable Bolla, S Augustine BEAR Unavailable Unavailable Bolla, S Augustine BEAR Unavailable Unavailable Bolla, S Augustine BEAR Unavailable Unavailable Bolla, S Augustine BEAR Unavailable Unavailable Bolla, S Augustine BEAR Unavailable Unavailable Bolla, S Augustine BEAR Unavailable Unavailable Bolla, S Augustine BEAR Unavailable Unavailable Bolla, S Augustine BEAR Unavailable Unavailable Bolla, S Augustine BEAR Unavailable Unavailable Bolla, S Augustine BEAR Unavailable Unavailable Bolla, S Augustine BEAR Unavailable Unavailable Bolla, S Augustine BEAR Unavailable Unavailable Bolla, S Augustine BEAR Unavailable Unavailable Bolla, S Augustine BEAR Unavailable Unavailable Bolla, S Augustine BEAR Unavailable Unavailable Bolla, S Augustine BEAR Unavailable Unavailable Bolla, S Augustine BEAR Unavailable Unavailable Rachell, Keena Unavailable Unavailable Rachell, Keena Unavailable Unavailable Rachell, Keena Unavailable Unavailable Rachell, Keena Unavailable Unavailable Rachell, Keena Unavailable Unavailable Rachell, Keena Unavailable Unavailable Rachell, Keena Unavailable Unavailable Rachell, Keena Unavailable Unavailable Rachell, Keena Unavailable Unavailable Rachell, Keena Unavailable Unavailable Rachell, Keena Unavailable Unavailable Rachell, Keena Unavailable Unavailable Rachell, Keena Unavailable Unavailable Rachell, Keena Unavailable Unavailable Rachell, Keena Unavailable Unavailable Rachell, Keena Unavailable Unavailable Rachell, Keena Unavailable Unavailable Rachell, Keena Unavailable Unavailable Rachell, Keena Unavailable Unavailable Rachell, Keena Unavailable Unavailable Rachell, Keena Unavailable Unavailable Rachell, Keena Unavailable Unavailable Rachell, Keena Unavailable Unavailable Rachell, Keena Unavailable Unavailable Rachell, Keena Unavailable Unavailable Rachell, Keena Unavailable Unavailable Mollison, W Tye BEAR Unavailable Unavailable Mollison, W Tye MD Unavailable Unavailable Mollison, W Tye MD Unavailable Unavailable Mollison, W Tye MD Unavailable Unavailable Mollison, W Tye MD Unavailable Unavailable Mollison, W Tye MD Unavailable Unavailable Mollison, W Tye MD Unavailable Unavailable Mollison, W Tye MD Unavailable Unavailable Mollison, W Tye MD Unavailable Unavailable Mollison, W Tye MD Unavailable Unavailable Mollison, W Tye MD Unavailable Unavailable Mollison, W Tye MD Unavailable Unavailable Mollison, W Tye MD Unavailable Unavailable Mollison, W Tye MD Unavailable Unavailable Mollison, W Tye MD Unavailable Unavailable Mollison, W Tye MD Unavailable Unavailable Mollison, W Tye MD Unavailable Unavailable Mollison, W Tye MD Unavailable Unavailable Mollison, W Tye MD Unavailable Unavailable Mollison, W Tye MD Unavailable Unavailable Mollison, W Tye MD Unavailable Unavailable Mollison, W Tye MD Unavailable Unavailable Mollison, W Tye MD Unavailable Unavailable Mollison, W Tye MD Unavailable Unavailable Mollison, W Tye MD Unavailable Unavailable Mollison, W Tye MD Unavailable Unavailable Mollison, W Tye MD Unavailable Unavailable Mollison, W Tye MD Unavailable Unavailable Mollison, W Tye MD Unavailable Unavailable Mollison, W Tye MD Unavailable Unavailable Re-disclosure Warning The records [...] is protected by Article 27-F of the [place] State Public Health law. If you continue you may have access to information: Regarding HIV / AIDS; Provided by facilities licensed or operated by the [facility] Office of Mental Health; or Provided by the [facility] Office for People With Developmental Disabilities. If such information is present, then the following [facility] mandated warning applies: This information has been [...] law may result in a fine or intermediate sentence or both. A general authorization for the release of medical or other information is NOT sufficient authorization for further disc losure. Encounters Encounter Providers Location Date Indications Data Source(s ) Padmini Lovett MD: [address] [place] [address], Ph. Attender: Padmini Lovett [facility] Medical 07/25/2021 12:00:00 AM EDT [place] ([facility]) Tye Apodaca MD: [address] [place] [address], Ph. Attender: Tye Apodaca MD [facility] Medical 07/18/2021 12:00:00 AM EDT [facility] ([facility]) Tye Apodaca MD: [address] [place] [address], Ph. Attender: Tye Apodaca MD [facility] Medical 07/18/2021 12:00:00 AM EDT [place] ([facility]) Augustine Núñez MD: [address] [place] [address], Ph. Attender: Augustine Núñez MD [facility] Office 02/20/2021 12:00:00 AM EDT [place] ([facility]) Padmini Lovett MD: [address] [place] [address], Ph. Attender: Padmini Lovett [facility] Medical 02/14/2021 12:00:00 AM EDT [place] ([facility]) Padmini Lovett MD: [address], [place] [address], Ph. Attender: Padmini Lovett [facility] Medical 02/14/2021 12:00:00 AM EDT [place] ([facility]) Padmini Lovett MD: [address], [place] [address], Ph. Attender: Padmini Lovett [facility] Medical 02/14/2021 12:00:00 AM EDT [place] ([facility]) Padmini Lovett MD: [address], [place] [address], Ph. Attender: Padmini Lovett [facility] Medical 12/27/2020 12:00:00 AM EDT [place] ([facility]) Padmini Lovett MD: [address], [place] [address], Ph. Attender: Padmini Lovett [facility] Medical 12/27/2020 12:00:00 AM EDT [place] ([facility]) Padmini Lovett MD: [address], [place] [address], Ph. Attender: Padmini Lovett [facility] Medical 12/27/2020 12:00:00 AM EDT [place] ([facility]) Padmini Lovett MD: [address], [place] [address], Ph. Attender: Padmini Lovett [facility] Medical 12/27/2020 12:00:00 AM EDT [place] ([facility]) Outpatient Attender: Tye Bernal/Tessy/Lee/Kae najera 11/16/2020 12:30:00 PM EST [facility] ([facility], ) Medications Medication Brand Name Start Date Product Form Dose Route Admi nistrative Instructions Pharmacy Instructions Status Indications Reaction Description Data Source(s) Naproxen 500 MG Delayed Release Oral Tablet Naproxen 10/24 12:00:00 AM EST ORAL active [facility] ( [facility], ) Naproxen 500 MG Oral Tablet naproxen 500 mg tablet TAKE ONE TABLET BY MOUTH TWICE A DAY naproxen 500 mg tablet TAKE ONE TABLET BY MOUTH TWICE A DAY completed naproxen 500 MG Oral Tabl et [place] ([facility]) Metronidazole 500 MG Oral Tablet metroni dazole 500 mg tablet TAKE ONE TABLET BY MOUTH TWICE A DAY metronidazole 500 mg tablet TAKE ONE TAB LET BY MOUTH TWICE A DAY completed metronidazole 50 0 MG Oral Tablet [place] ([facility]) Naproxen 500 MG Oral Tablet naproxen 500 mg tablet TAKE ONE TABLET BY MOUTH TWICE A DAY naproxen 500 mg tablet TAKE ONE TABLET BY MOUTH TWICE A DAY completed naproxen 500 MG Oral Tabl et [place] ([facility]) Doxycycline Monohydrate 100 MG Oral Caps ule doxycycline monohydrate 100 mg capsule TAKE ONE CAPSULE BY MOUTH EVERY 12 HOURS doxycycline monohydrate 100 mg capsule TAKE ONE CAPSULE BY MOUTH EVERY 12 HOURS completed doxycycline monohydrate 100 MG Oral Capsule [place] ([facility]) Naproxen 500 MG Oral Tablet naproxen 500 mg tablet TAKE ONE TABLET BY MOUTH TWICE A DAY naproxen 500 mg tablet TAKE ONE TABLET BY MOUTH TWICE A DAY completed naproxen 500 MG Oral Tabl et [place] ([facility]) Naproxen 500 MG Oral Tablet naproxen 500 mg tablet TAKE ONE TABLET BY MOUTH TWICE A DAY naproxen 500 mg tablet TAKE ONE TABLET BY MOUTH TWICE A DAY completed naproxen 500 MG Oral Tabl et [place] ([facility]) Metronidazole 500 MG Oral Tablet metroni dazole 500 mg tablet TAKE ONE TABLET BY MOUTH TWICE A DAY metronidazole 500 mg tablet TAKE ONE TAB LET BY MOUTH TWICE A DAY completed metronidazole 50 0 MG Oral Tablet [place] ([facility]) Metronidazole 500 MG Oral Tablet metroni dazole 500 mg tablet TAKE ONE TABLET BY MOUTH TWICE A DAY metronidazole 500 mg tablet TAKE ONE TAB LET BY MOUTH TWICE A DAY completed metronidazole 50 0 MG Oral Tablet [place] ([facility]) Doxycycline Monohydrate 100 MG Oral Caps ule doxycycline monohydrate 100 mg capsule TAKE ONE CAPSULE BY MOUTH EVERY 12 HOURS doxycycline monohydrate 100 mg capsule TAKE ONE CAPSULE BY MOUTH EVERY 12 HOURS completed doxycycline monohydrate 100 MG Oral Capsule [place] ([facility]) Doxycycline Monohydrate 100 MG Oral Caps ule doxycycline monohydrate 100 mg capsule TAKE ONE CAPSULE BY MOUTH EVERY 12 HOURS doxycycline monohydrate 100 mg capsule TAKE ONE CAPSULE BY MOUTH EVERY 12 HOURS completed doxycycline monohydrate 100 MG Oral Capsule [place] ([facility]) Insurance Providers Payer name Policy type / Coverage type Policy ID Covered libertarian ID Covered libertarian's relationship to membreno Policy Membreno Plan Information Managed Care - [facility] P [id number] S [id number] Medicaid S [id number] S [id number] [facility] UNAVAILABLE [id number] S UNAVAILABLE MEDICAID M [id number] S [id number] [employer] [facility] [id number] SP [id number] [employer]AN [facility] [id number] SP [id number] MEDICAID [id number] SP [id number] [facility]) O [id number] S [id number] Problems, Conditions, and Diagnoses Code Display Name Description Problem Type Effective Dates Data Source(s) 422391793 History of sexually transmitted disease History of Sexually Transmitted Disease Problem 05/14/2021 12:00:00 AM EDT [facility]) [id number] History of sexually transmitted disease History of Sexually Transmitted Disease Problem 05/14/2021 12:00:00 AM EDT [facility]) [id number] Pain in left arm Pain in Left Arm Problem 12/27/2020 12 :00:00 AM EDT [facility]) [id number] Neck pain Neck Pain Problem 12/27/2020 12:00:00 AM ED T [place] ([facility]) [id number] Pain in left arm Pain in Left Arm Problem 12/27/2020 12 :00:00 AM EDT [place] ([facility]) 23938929 Neck pain Neck Pain Problem 12/27/2020 12:00:00 AM ED T [place] ([facility]) [id number] Pain in left arm Pain in Left Arm Problem 12/27/2020 12 :00:00 AM EDT [place] ([facility]) [id number] Neck pain Neck Pain Problem 12/27/2020 12:00:00 AM ED T [place] ([facility]) 361671754 Pain in left arm Pain in Left Arm Problem 12/27/2020 12 :00:00 AM EDT [place] ([facility]) [id number] Neck pain Neck Pain Problem 12/27/2020 12:00:00 AM ED T [place] ([facility]) 151996813 Body measurement finding Body Measurement Finding Prob chandrika 11/17/2017 12:00:00 AM EST - 12/26/2020 12:00:00 AM EDT [place] ([facility]) [id number] Tobacco use and exposure - finding Tobacco Use a nd Exposure - Finding Problem 11/17/2017 12:00:00 AM EST - 12/26/2020 12:00:00 AM ED T [place] ([facility]) [id number] Dysuria Dysuria Problem 11/17/2017 12:0 0:00 AM EST - 12/27/2020 12:00:00 AM EDT [place] ([facility]) [id number] Disorder of penis Disorder of Penis Problem 11/17 12:00:00 AM EST - 12/27/2020 12:00:00 AM EDT [place] ([facility]) [id number] Nongonococcal urethritis Nongonococcal Urethritis Prob chandrika 11/17/2017 12:00:00 AM EST - 12/26/2020 12:00:00 AM EDT [place] ([facility]) 581307031 Body measurement finding Body Measurement Finding Prob chandrika 11/17/2017 12:00:00 AM EST - 12/26/2020 12:00:00 AM EDT [place] ([facility]) 802778675 Tobacco use and exposure - finding Tobacco Use a nd Exposure - Finding Problem 11/17/2017 12:00:00 AM EST - 12/26/2020 12:00:00 AM ED T [place] ([facility]) [id number] Dysuria Dysuria Problem 11/17/2017 12:0 0:00 AM EST - 12/27/2020 12:00:00 AM EDT [place] ([facility]) 12806449 Disorder of penis Disorder of Penis Problem 11/17 12:00:00 AM EST - 12/27/2020 12:00:00 AM EDT [place] ([facility]) 19881359 Nongonococcal urethritis Nongonococcal Urethritis Prob chandrika 11/17/2017 12:00:00 AM EST - 12/26/2020 12:00:00 AM EDT [place] ([facility]) 448476432 Body measurement finding Body Measurement Finding Prob chandrika 11/17/2017 12:00:00 AM EST - 12/26/2020 12:00:00 AM EDT [place] ([facility]) 940473962 Tobacco use and exposure - finding Tobacco Use a nd Exposure - Finding Problem 11/17/2017 12:00:00 AM EST - 12/26/2020 12:00:00 AM ED T [place] ([facility]) 63624468 Dysuria Dysuria Problem 11/17/2017 12:0 0:00 AM EST - 12/27/2020 12:00:00 AM EDT [place] ([facility]) 28883289 Disorder of penis Disorder of Penis Problem 11/17 12:00:00 AM EST - 12/27/2020 12:00:00 AM EDT [place] ([facility]) 46150119 Nongonococcal urethritis Nongonococcal Urethritis Prob chandrika 11/17/2017 12:00:00 AM EST - 12/26/2020 12:00:00 AM EDT [place] ([facility]) 019904952 Body measurement finding Body Measurement Finding Prob chandrika 11/17/2017 12:00:00 AM EST - 12/26/2020 12:00:00 AM EDT [place] ([facility]) 282143176 Tobacco use and exposure - finding Tobacco Use a nd Exposure - Finding Problem 11/17/2017 12:00:00 AM EST - 12/26/2020 12:00:00 AM ED T [place] ([facility]) 66407635 Dysuria Dysuria Problem 11/17/2017 12:0 0:00 AM EST - 12/27/2020 12:00:00 AM EDT [place] ([facility]) [id number] Disorder of penis Disorder of Penis Problem 11/17 12:00:00 AM EST - 12/27/2020 12:00:00 AM EDT [place] ([facility]) 59964818 Nongonococcal urethritis Nongonococcal Urethritis Prob chandrika 11/17/2017 12:00:00 AM EST - 12/26/2020 12:00:00 AM EDT [place] ([facility]) 114074409 Body measurement finding Body Measurement Finding Prob chandrika 10/07/2017 12:00:00 AM EST - 12/26/2020 12:00:00 AM EDT [place] ([facility]) 975037954 Body measurement finding Body Measurement Finding Prob chandrika 10/07/2017 12:00:00 AM EST - 12/26/2020 12:00:00 AM EDT [place] ([facility]) [id number] Body measurement finding Body Measurement Finding Prob chandrika 10/07/2017 12:00:00 AM EST - 12/26/2020 12:00:00 AM EDT [place] ([facility]) 117587727 Body measurement finding Body Measurement Finding Prob chandrika 10/07/2017 12:00:00 AM EST - 12/26/2020 12:00:00 AM EDT [place] ([facility]) Surgeries/Procedures Procedure Description Date Indications Data Source(s) MRI, cervical spine, w/o contrast 02/20/2021 12:00:00 AM EDT [facility] ([facility]) Results ID Date Data Source [id number] 07/25/2021 12:53:00 PM EDT [place] ([facility]) Name Value Range Interpretation Code Description Data Rosalinda rce(s) Supporting Document(s) chlamydia DNA amplification positive negative Above high no rmal Chlamydia DNA Amplification [place] ([facility]) GC DNA amplification negative negative GC DNA Amplific ation [facility]) ID Date Data Source [id number] 07/25/2021 12:00:00 AM EDT [facility]) Name Value Range Interpretation Code Description Data Rosalinda rce(s) Supporting Document(s) Reagin Ab [Presence] in Serum by RPR non-reactive non-reactive RPR (DX) W/refl Titer and Confirmatory Testing [facility]) ID Date Data Source [id number] 07/25/2021 12:00:00 AM EDT [facility]) Name Value Range Interpretation Code Description Data Rosalinda rce(s) Supporting Document(s) Chlamydia trachomatis rRNA [Presence] in Unspecified specimen by Probe and target amplification method detected not detected Abnormal (ap plies to non- numeric results) Chlamydia Trachomatis RNA, Tma, Urogenital [place] ([facility]) Neisseria gonorrhoeae rRNA [Presence] in Unspecified specimen by Probe and target amplification method not detected not detected Neis seria Gonorrhoeae RNA, Tma, Urogenital [place] ([facility]) Trichomonas vaginalis rRNA [Presence] in Unspecified specimen by Probe and target amplification method not detected not detected sure swab(R) Trichomonas Vaginalis RNA, Ql, Tma [place] ([facility]) Mycoplasma genitalium DNA [Presence] in Unspecified specimen by Probe and target amplification method not detected not detected Mycoplasma Genitalium, Rrna, Tma [place] ([facility]) Service comment 05 see note Assay Details [facility]) ID Date Data Source [id number] 07/25/2021 12:00:00 AM EDT [facility]) Name Value Range Interpretation Code Description Data Rosalinda rce(s) Supporting Document(s) Hepatitis C virus Ab Signal/Cutoff in Serum or Plasma by Imm unoassay 0.02 ratio <1.00 Index [place] ([facility]) Hepatitis C virus Ab [Presence] in Serum or Plasma by Immuno assay nonreactive nonreactive Hepatitis C Antibody [place] ([facility]) HIV 1+2 Ab+HIV1 p24 Ag [Presence] in Serum or Plasma b y Immunoassay non-reactive non-reactive HIV Ag/Ab, 4TH Gen [place] ([facility]) ID Date Data Source [id number] 03/27/2021 07:57:00 PM EDT [place] ([facility]) Name Value Range Interpretation Code Description Data Rosalinda rce(s) Supporting Document(s) HIV 1&2 screen centaur negative negative HIV 1&2 Scree n Centaur [place] ([facility]) ID Date Data Source [id number] 03/27/2021 07:57:00 PM EDT [facility]) Name Value Range Interpretation Code Description Data Rosalinda rce(s) Supporting Document(s) syphilis nonreactive nonreactive Syphilis [place] ([facility]) ID Date Data Source [id number] 03/27/2021 07:57:00 PM EDT [facility]) Name Value Range Interpretation Code Description Data Rosalinda rce(s) Supporting Document(s) hepatitis B surface antibody positive positive Hepatit is B Surface Antibody [facility]) ID Date Data Source [id number] 03/27/2021 07:57:00 PM EDT [facility]) Name Value Range Interpretation Code Description Data Rosalinda rce(s) Supporting Document(s) hepatitis B surface antigen negative negative Hepatiti s B Surface Antigen [facility]) ID Date Data Source [id number] 03/27/2021 07:57:00 PM EDT [facility]) Name Value Range Interpretation Code Description Data Rosalinda rce(s) Supporting Document(s) hepatitis C virus victor m index 0.0 index <0.8 Hepatiti s C Virus Victor M Index [place] ([facility]) ID Date Data Source [id number] 03/27/2021 07:57:00 PM EDT [facility]) Name Value Range Interpretation Code Description Data Rosalinda rce(s) Supporting Document(s) chlamydia DNA amplification negative negative Chlamydi a DNA Amplification [place] ([facility]) trichomonas vaginalis (amp) not detected negative Tricho monas Vaginalis (Amp) [place] ([facility]) GC DNA amplification negative negative GC DNA Amplific ation [place] ([facility]) ID Date Data Source [id number] 03/27/2021 07:57:00 PM EDT [place] ([facility]) Name Value Range Interpretation Code Description Data Rosalinda rce(s) Supporting Document(s) appearance, urine rfx clear clear Appearance, Ur ine Rfx [place] ([facility]) pH,urine rfx 6.0 units 5.0-9.0 pH,urine Rfx [place] ([facility]) color, urine rfx yellow yellow Color, Urine Rfx AT [place] ([facility]) protein, urine auto rfx negative negative Protein, Uri ne Auto Rfx [place] ([facility]) specific gravity ur auto rfx 1.002-1.035 Specif ic [place] Ur Auto Rfx [place] ([facility]) glucose, urine (UA) auto rfx negative negative Glucose , Urine (UA) Auto Rfx [place] ([facility]) ketone, urine auto rfx negative negative Ketone, Urine Auto Rfx [place] ([facility]) urobilinogen, urine auto rfx 2.0 mg/dL 0.0-2.0 Above high n ormal Urobilinogen, Urine Auto Rfx [place] ([facility]) bilirubin, urine auto rfx negative negative Bilirubin, Urine Auto Rfx [place] ([facility]) nitrite, urine auto rfx negative negative Nitrite, Uri ne Auto Rfx [place] ([facility]) blood, urine blood rfx negative negative Blood, Urine Blood Rfx [place] ([facility]) leukocyte esterase ur auto rfx negative negative Leukocyte Esterase Ur Auto Rfx [place] ([facility]) bacteria, urine auto rfx negative negative Bacteria, U rine Auto Rfx [place] ([facility]) RBC, urine auto rfx 0 /hpf 0-3 RBC, Urine Auto Rfx [place] ([facility]) WBC, urine auto rfx 0 /hpf 0-3 WBC, Urine Auto Rfx [place] ([facility]) mucus, urine rfx small negative Mucus, Urine Rfx [place] ([facility]) squam epithelial cell ur aurfx 0 /hpf 0-6 Squam Epithelial Cell Ur Aurfx [place] ([facility]) hyaline cast, urine auto rfx 0 /lpf 0-1 Hyaline Cast, Urine Auto Rfx [place] ([facility]) ID Date Data Source [id number] 03/27/2021 07:57:00 PM EDT [place] ([facility]) Name Value Range Interpretation Code Description Data Rosalinda rce(s) Supporting Document(s) HIV 1&2 screen centaur negative negative HIV 1&2 Scree n Centaur [place] ([facility]) ID Date Data Source [id number] 03/27/2021 07:57:00 PM EDT [place] ([facility]) Name Value Range Interpretation Code Description Data Orsalinda rce(s) Supporting Document(s) syphilis nonreactive nonreactive Syphilis [place] ([facility]) ID Date Data Source [id number] 03/27/2021 07:57:00 PM EDT [place] ([facility]) Name Value Range Interpretation Code Description Data Rosalinda rce(s) Supporting Document(s) hepatitis B surface antibody positive positive Hepatit is B Surface Antibody [place] ([facility]) ID Date Data Source [id number] 03/27/2021 07:57:00 PM EDT [place] ([facility]) Name Value Range Interpretation Code Description Data Rosalinda rce(s) Supporting Document(s) hepatitis B surface antigen negative negative Hepatiti s B Surface Antigen [facility]) ID Date Data Source [id number] 03/27/2021 07:57:00 PM EDT [place] ([facility]) Name Value Range Interpretation Code Description Data Rosalinda rce(s) Supporting Document(s) hepatitis C virus victor m index 0.0 index <0.8 Hepatiti s C Virus Victor M Index [facility]) ID Date Data Source [id number] 03/27/2021 07:57:00 PM EDT [facility]) Name Value Range Interpretation Code Description Data Rosalinda rce(s) Supporting Document(s) chlamydia DNA amplification negative negative Chlamydi a DNA Amplification [place] ([facility]) GC DNA amplification negative negative GC DNA Amplific ation [place] ([facility]) trichomonas vaginalis (amp) not detected negative Tricho monas Vaginalis (Amp) [place] ([facility]) ID Date Data Source [id number] 03/27/2021 07:57:00 PM EDT [place] ([facility]) Name Value Range Interpretation Code Description Data Rosalinda rce(s) Supporting Document(s) appearance, urine rfx clear clear Appearance, Ur ine Rfx [place] ([facility]) color, urine rfx yellow yellow Color, Urine Rfx AT [place] ([facility]) pH,urine rfx 6.0 units 5.0-9.0 pH,urine Rfx [place] ([facility]) specific gravity ur auto rfx 1.002-1.035 Specif ic [place] Ur Auto Rfx [place] ([facility]) glucose, urine (UA) auto rfx negative negative Glucose , Urine (UA) Auto Rfx [place] ([facility]) protein, urine auto rfx negative negative Protein, Uri ne Auto Rfx [place] ([facility]) urobilinogen, urine auto rfx 2.0 mg/dL 0.0-2.0 Above high n ormal Urobilinogen, Urine Auto Rfx [place] ([facility]) ketone, urine auto rfx negative negative Ketone, Urine Auto Rfx [place] ([facility]) bilirubin, urine auto rfx negative negative Bilirubin, Urine Auto Rfx [place] ([facility]) nitrite, urine auto rfx negative negative Nitrite, Uri ne Auto Rfx [place] ([facility]) blood, urine blood rfx negative negative Blood, Urine Blood Rfx [place] ([facility]) leukocyte esterase ur auto rfx negative negative Leukocyte Esterase Ur Auto Rfx [place] ([facility]) WBC, urine auto rfx 0 /hpf 0-3 WBC, Urine Auto Rfx [place] ([facility]) RBC, urine auto rfx 0 /hpf 0-3 RBC, Urine Auto Rfx [place] ([facility]) squam epithelial cell ur aurfx 0 /hpf 0-6 Squam Epithelial Cell Ur Aurfx [place] ([facility]) bacteria, urine auto rfx negative negative Bacteria, U rine Auto Rfx [place] ([facility]) mucus, urine rfx small negative Mucus, Urine Rfx AT [facility] ([facility]) hyaline cast, urine auto rfx 0 /lpf 0-1 Hyaline Cast, Urine Auto Rfx [place] ([facility]) ID Date Data Source [id number] 02/14/2021 06:12:00 PM EDT [place] ([facility]) Name Value Range Interpretation Code Description Data Rosalinda rce(s) Supporting Document(s) chlamydia DNA probe negative negative Chlamydia DNA Pr obe [place] ([facility]) GC DNA probe negative negative GC DNA Probe [place] ([facility]) ID Date Data Source [id number] 02/14/2021 06:12:00 PM EDT [place] ([facility]) Name Value Range Interpretation Code Description Data Rosalinda rce(s) Supporting Document(s) chlamydia DNA probe negative negative Chlamydia DNA Pr obe [place] ([facility]) GC DNA probe negative negative GC DNA Probe [place] ([facility]) ID Date Data Source [id number] 02/14/2021 04:43:00 PM EDT [place] ([facility]) Name Value Range Interpretation Code Description Data Rosalinda rce(s) Supporting Document(s) hepatitis B core antibody IgG negative negative Hepati tis B Core Antibody IgG [place] ([facility]) ID Date Data Source [id number] 02/14/2021 04:43:00 PM EDT [place] ([facility]) Name Value Range Interpretation Code Description Data Rosalinda rce(s) Supporting Document(s) hsv type I IgG specific <0.91 0.00-0.90 Hsv Type I I gG Specific [place] ([facility]) hsv type II IgG specific 14.80 index 0.00-0.90 Above high zoe l Hsv Type II IgG Specific [place] ([facility]) ID Date Data Source [id number] 02/14/2021 04:43:00 PM EDT [place] ([facility]) Name Value Range Interpretation Code Description Data Rosalinda rce(s) Supporting Document(s) HIV 1&2 screen centaur negative negative HIV 1&2 Scree n Centaur [place] ([facility]) ID Date Data Source [id number] 02/14/2021 04:43:00 PM EDT [facility]) Name Value Range Interpretation Code Description Data Rosalinda rce(s) Supporting Document(s) syphilis nonreactive nonreactive Syphilis [place] ([facility]) ID Date Data Source [id number] 02/14/2021 04:43:00 PM EDT [place] ([facility]) Name Value Range Interpretation Code Description Data Rosalinda rce(s) Supporting Document(s) hepatitis B surface antibody positive positive Hepatit is B Surface Antibody [place] ([facility]) ID Date Data Source [id number] 02/14/2021 04:43:00 PM EDT [place] ([facility]) Name Value Range Interpretation Code Description Data Rosalinda rce(s) Supporting Document(s) hepatitis B surface antigen negative negative Hepatiti s B Surface Antigen [place] ([facility]) ID Date Data Source [id number] 02/14/2021 04:43:00 PM EDT [place] ([facility]) Name Value Range Interpretation Code Description Data Rosalinda rce(s) Supporting Document(s) hepatitis C virus victor m index 0.1 index <0.8 Hepatiti s C Virus Victor M Index [place] ([facility]) ID Date Data Source [id number] 02/14/2021 04:43:00 PM EDT [place] ([facility]) Name Value Range Interpretation Code Description Data Rosalinda rce(s) Supporting Document(s) white blood count 10.3 10 4.0-10.0 Above high normal White Blood Count [place] ([facility]) hemoglobin 15.4 g/dL 13.5-17.5 Hemoglobin [place] ([facility]) red blood count 5.09 10 4.30-6.10 Red Blood Count [place] ([facility]) hematocrit 45.8 % 42.0-52.0 Hematocrit [place] ([facility]) mean corpuscular hemoglobin 30.3 pg 27.0-33.0 Mean Cor puscular Hemoglobin [place] ([facility]) mean corpuscular volume 90.0 fL 80.0-96.0 Mean Corpusc ular Volume [place] ([facility]) mean corpuscular HGB conc 33.6 g/dL 32.0-36.5 Mean Corpu scular HGB Conc [place] ([facility]) platelet count, automated 281 10 150-450 Platelet C ount, Automated [place] ([facility]) red cell distribution width 11.6 % 11.5-14.5 Red Cell Distribution Width [place] ([facility]) neutrophils % 76.0 % 36.0-66.0 Above high normal Neutrophils % A [place] ([facility]) lymph % 18.9 % 24.0-44.0 Below low normal Lymph % [place] ( [facility]) mono % 4.0 % 2.0-8.0 [place] % [place] ([facility]) eos % 0.3 % 0.0-3.0 Eos % [place] ([facility]) baso % 0.4 % 0.0-1.0 Baso % [place] ([facility]) immature granulocyte % 0.4 % 0-3.0 Immature Gran ulocyte % [place] ([facility]) nucleated red blood cell % 0.0 % 0-0 Nucleated Red Blood Cell % [place] ([facility]) lymph # 2.0 10 1.5-5.0 Lymph # [place] ([facility]) mono # 0.4 10 0.0-0.8 [place] # [place] ([facility]) neutrophils # 7.8 10 1.5-8.5 Neutrophils # [place] ( [facility]) eos # 0.0 10 0.0-0.5 Eos # [place] ([facility]) baso # 0.0 10 0.0-0.2 Baso # [place] ([facility]) ID Date Data Source [id number] 02/14/2021 04:43:00 PM EDT [place] ([facility]) Name Value Range Interpretation Code Description Data Rosalinda rce(s) Supporting Document(s) hepatitis B core antibody IgG negative negative Hepati tis B Core Antibody IgG [place] ([facility]) ID Date Data Source [id number] 02/14/2021 04:43:00 PM EDT [place] ([facility]) Name Value Range Interpretation Code Description Data Rosalinda rce(s) Supporting Document(s) hsv type I IgG specific <0.91 0.00-0.90 Hsv Type I I gG Specific [place] ([facility]) hsv type II IgG specific 14.80 index 0.00-0.90 Above high zoe l Hsv Type II IgG Specific [place] ([facility]) ID Date Data Source [id number] 02/14/2021 04:43:00 PM EDT [place] ([facility]) Name Value Range Interpretation Code Description Data Rosalinda rce(s) Supporting Document(s) HIV 1&2 screen centaur negative negative HIV 1&2 Scree n Centaur [place] ([facility]) ID Date Data Source [id number] 02/14/2021 04:43:00 PM EDT [place] ([facility]) Name Value Range Interpretation Code Description Data Rosalinda rce(s) Supporting Document(s) syphilis nonreactive nonreactive Syphilis [place] ([facility]) ID Date Data Source [id number] 02/14/2021 04:43:00 PM EDT [place] ([facility]) Name Value Range Interpretation Code Description Data Rosalinda rce(s) Supporting Document(s) hepatitis B surface antibody positive positive Hepatit is B Surface Antibody [place] ([facility]) ID Date Data Source [id number] 02/14/2021 04:43:00 PM EDT [place] ([facility]) Name Value Range Interpretation Code Description Data Rosalinda rce(s) Supporting Document(s) hepatitis B surface antigen negative negative Hepatiti s B Surface Antigen [facility]) ID Date Data Source [id number] 02/14/2021 04:43:00 PM EDT [place] ([facility]) Name Value Range Interpretation Code Description Data Rosalinda rce(s) Supporting Document(s) hepatitis C virus victor m index 0.1 index <0.8 Hepatiti s C Virus Victor M Index [place] ([facility]) ID Date Data Source [id number] 02/14/2021 04:43:00 PM EDT [place] ([facility]) Name Value Range Interpretation Code Description Data Rosalinda rce(s) Supporting Document(s) white blood count 10.3 10 4.0-10.0 Above high normal White Blood Count [place] ([facility]) red blood count 5.09 10 4.30-6.10 Red Blood Count [place] ([facility]) hemoglobin 15.4 g/dL 13.5-17.5 Hemoglobin [place] ([facility]) hematocrit 45.8 % 42.0-52.0 Hematocrit [place] ([facility]) mean corpuscular hemoglobin 30.3 pg 27.0-33.0 Mean Cor puscular Hemoglobin [place] ([facility]) mean corpuscular volume 90.0 fL 80.0-96.0 Mean Corpusc ular Volume [place] ([facility]) mean corpuscular HGB conc 33.6 g/dL 32.0-36.5 Mean Corpu scular HGB Conc [place] ([facility]) platelet count, automated 281 10 150-450 Platelet C ount, Automated [place] ([facility]) red cell distribution width 11.6 % 11.5-14.5 Red Cell Distribution Width [place] ([facility]) neutrophils % 76.0 % 36.0-66.0 Above high normal Neutrophils % [place] ([facility]) lymph % 18.9 % 24.0-44.0 Below low normal Lymph % [place] ( [facility]) mono % 4.0 % 2.0-8.0 [place] % [place] ([facility]) eos % 0.3 % 0.0-3.0 Eos % [place] ([facility]) baso % 0.4 % 0.0-1.0 Baso % [place] ([facility]) immature granulocyte % 0.4 % 0-3.0 Immature Gran ulocyte % [place] ([facility]) neutrophils # 7.8 10 1.5-8.5 Neutrophils # [place] ( [facility]) lymph # 2.0 10 1.5-5.0 Lymph # [place] ([facility]) nucleated red blood cell % 0.0 % 0-0 Nucleated Red Blood Cell % [place] ([facility]) mono # 0.4 10 0.0-0.8 [place] # [place] ([facility]) baso # 0.0 10 0.0-0.2 Baso # [place] ([facility]) eos # 0.0 10 0.0-0.5 Eos # [place] ([facility]) ID Date Data Source [id number] 01/01/2021 03:07:00 PM EDT [facility]) Name Value Range Interpretation Code Description Data Rosalinda rce(s) Supporting Document(s) chlamydia DNA amplification positive negative Above high no rmal Chlamydia DNA Amplification [place] ([facility]) trichomonas vaginalis (amp) positive negative Above high no rmal Trichomonas Vaginalis (Amp) [place] ([facility]) GC DNA amplification positive negative Above high normal GC DNA A mplification [facility]) ID Date Data Source [id number] 01/01/2021 03:07:00 PM EDT [facility]) Name Value Range Interpretation Code Description Data Rosalinda rce(s) Supporting Document(s) trichomonas vaginalis (amp) positive negative Above high no rmal Trichomonas Vaginalis (Amp) [place] ([facility]) GC DNA amplification positive negative Above high normal GC DNA A mplification [facility]) chlamydia DNA amplification positive negative Above high no rmal Chlamydia DNA Amplification [place] ([facility]) ID Date Data Source [id number] 01/01/2021 03:07:00 PM EDT [place] ([facility]) Name Value Range Interpretation Code Description Data Rosalinda rce(s) Supporting Document(s) chlamydia DNA amplification positive negative Above high no rmal Chlamydia DNA Amplification [place] ([facility]) GC DNA amplification positive negative Above high normal GC DNA A mplification [place] ([facility]) trichomonas vaginalis (amp) positive negative Above high no rmal Trichomonas Vaginalis (Amp) [place] ([facility]) ID Date Data Source [id number] 12/27/2020 10:00:00 AM EDT [place] ([facility]) Name Value Range Interpretation Code Description Data Rosalinda rce(s) Supporting Document(s) chlamydia DNA probe negative negative Chlamydia DNA Pr obe [place] ([facility]) GC DNA probe negative negative GC DNA Probe [place] ([facility]) ID Date Data Source [id number] 12/27/2020 10:00:00 AM EDT [facility]) Name Value Range Interpretation Code Description Data Rosalinda rce(s) Supporting Document(s) chlamydia DNA probe negative negative Chlamydia DNA Pr obe [place] ([facility]) GC DNA probe negative negative GC DNA Probe [place] ([facility]) ID Date Data Source [id number] 12/27/2020 10:00:00 AM EDT [facility]) Name Value Range Interpretation Code Description Data Rosalinda rce(s) Supporting Document(s) GC DNA probe negative negative GC DNA Probe [place] ([facility]) chlamydia DNA probe negative negative Chlamydia DNA Pr obe [place] ([facility]) ID Date Data Source [id number] 12/27/2020 10:00:00 AM EDT [facility]) Name Value Range Interpretation Code Description Data Rosalinda rce(s) Supporting Document(s) GC DNA probe negative negative GC DNA Probe [place] ([facility]) chlamydia DNA probe negative negative Chlamydia DNA Pr obe [place] ([facility]) ID Date Data Source [id number] 12/27/2020 10:00:00 AM EDT [place] ([facility]) Name Value Range Interpretation Code Description Data Rosalinda rce(s) Supporting Document(s) chlamydia DNA probe negative negative Chlamydia DNA Pr obe [place] ([facility]) GC DNA probe negative negative GC DNA Probe [place] ([facility]) ID Date Data Source [id number] 12/27/2020 10:00:00 AM EDT [facility]) Name Value Range Interpretation Code Description Data Rosalinda rce(s) Supporting Document(s) GC DNA probe negative negative GC DNA Probe [place] ([facility]) chlamydia DNA probe negative negative Chlamydia DNA Pr obe [place] ([facility]) ID Date Data Source [id number] 12/27/2020 09:08:00 AM EDT [facility]) Name Value Range Interpretation Code Description Data Rosalinda rce(s) Supporting Document(s) HIV 1&2 screen centaur negative negative HIV 1&2 Scree n Centaur [place] ([facility]) ID Date Data Source [id number] 12/27/2020 09:08:00 AM EDT [facility]) Name Value Range Interpretation Code Description Data Rosalinda rce(s) Supporting Document(s) syphilis nonreactive nonreactive Syphilis [place] ([facility]) ID Date Data Source [id number] 12/27/2020 09:08:00 AM EDT [facility]) Name Value Range Interpretation Code Description Data Rosalinda rce(s) Supporting Document(s) thyroid stimulating hormone 1.860 uIU/mL 0.358-3.740 Thyroid Stimulating Hormone [place] ([facility]) ID Date Data Source [id number] 12/27/2020 09:08:00 AM EDT [place] ([facility]) Name Value Range Interpretation Code Description Data Rosalinda rce(s) Supporting Document(s) triglycerides level 87 mg/dL <150 Triglycerides Le dilma [place] ([facility]) cholesterol level 174 mg/dL <200 Cholesterol Level [place] ([facility]) non-HDL-C 130 mg/dL Non-hdl-c [place] ([facility]) Cholesterol in LDL [Mass/volume] in Serum or Plasma 113 mg/dL <100 Above high normal LDL Cholesterol [place] ([facility]) HDL cholesterol 44 mg/dL >40 HDL Cholesterol [facility] NA ([facility]) cholesterol risk ratio <5 Cholesterol R isk Ratio [place] ([facility]) ID Date Data Source [id number] 12/27/2020 09:08:00 AM EDT [place] ([facility]) Name Value Range Interpretation Code Description Data Rosalinda rce(s) Supporting Document(s) hepatitis C virus victor m index < 0.0 <0.8 Hepatiti s C Virus Victor M Index [place] ([facility]) ID Date Data Source [id number] 12/27/2020 09:08:00 AM EDT [place] ([facility]) Name Value Range Interpretation Code Description Data Rosalinda rce(s) Supporting Document(s) glucose, fasting 78 mg/dL 70-100 Glucose, Fasting AT [facility] ([facility]) creatinine for GFR 1.00 mg/dL 0.70-1.30 Creatinine for GF R [place] ([facility]) glomerular filtration rate > 60.0 >60 [place] r Filtration Rate [place] ([facility]) sodium level 141 mEq/L 136-145 Sodium Level [place] ([facility]) blood urea nitrogen 12 mg/dL 7-18 Blood Urea Nitro gen [place] ([facility]) carbon dioxide level 29 mEq/L 21-32 Carbon Dioxide Level [place] ([facility]) anion gap 6 mEq/L 8-16 Below low normal Anion Gap [place] ( [facility]) chloride level 106 mEq/L 98-107 Chloride Level [place] ([facility]) potassium serum 4.3 mEq/L 3.5-5.1 Potassium Serum [facility] NA ([facility]) calcium level 9.4 mg/dL 8.5-10.1 Calcium Level [place] ( [facility]) alkaline phosphatase 68 U/L 45-117 Alkaline Phosph atase [place] ([facility]) AST/SGOT 7 U/L 7-37 AST/SGOT [place] ([facility]) ALT/SGPT 14 U/L 12-78 ALT/SGPT [place] ([facility]) albumin 4.2 gm/dL 3.2-5.2 Albumin [place] ([facility]) albumin/globulin ratio Albumin/globu siva Ratio [facility] ([facility]) total protein 7.8 gm/dL 6.4-8.2 Total Protein [facility] ( [facility]) bilirubin,total 0.6 mg/dL 0.2-1.0 Bilirubin,total ATHE NA ([facility]) ID Date Data Source [id number] 12/27/2020 09:08:00 AM EDT [place] ([facility]) Name Value Range Interpretation Code Description Data Rosalinda rce(s) Supporting Document(s) white blood count 7.1 10 4.0-10.0 White Blood Count [place] ([facility]) red blood count 5.15 10 4.30-6.10 Red Blood Count ATHE ([facility]) hemoglobin 15.8 g/dL 13.5-17.5 Hemoglobin [place] ([facility]) mean corpuscular volume 92.0 fL 80.0-96.0 Mean Corpusc ular Volume [facility] ([facility]) hematocrit 47.4 % 42.0-52.0 Hematocrit [facility] ([facility]) mean corpuscular hemoglobin 30.7 pg 27.0-33.0 Mean Cor puscular Hemoglobin [facility] ([facility]) mean corpuscular HGB conc 33.3 g/dL 32.0-36.5 Mean Corpu scular HGB Conc [facility] ([facility]) red cell distribution width 12.2 % 11.5-14.5 Red Cell Distribution Width [facility] ([facility]) platelet count, automated 294 10 150-450 Platelet C ount, Automated [place] ([facility]) neutrophils % 63.5 % 36.0-66.0 Neutrophils % [place] ( [facility]) lymph % 30.0 % 24.0-44.0 Lymph % [place] ([facility]) mono % 4.8 % 2.0-8.0 [place] % [place] ([facility]) eos % 0.7 % 0.0-3.0 Eos % [place] ([facility]) baso % 0.7 % 0.0-1.0 Baso % [place] ([facility]) immature granulocyte % 0.3 % 0-3.0 Immature Gran ulocyte % [place] ([facility]) nucleated red blood cell % 0.0 % 0-0 Nucleated Red Blood Cell % [place] ([facility]) lymph # 2.1 10 1.5-5.0 Lymph # [place] ([facility]) mono # 0.3 10 0.0-0.8 [place] # [place] ([facility]) neutrophils # 4.5 10 1.5-8.5 Neutrophils # [place] ( [facility]) baso # 0.1 10 0.0-0.2 Baso # [place] ([facility]) eos # 0.1 10 0.0-0.5 Eos # [place] ([facility]) ID Date Data Source [id number] 12/27/2020 09:08:00 AM EDT [place] ([facility]) Name Value Range Interpretation Code Description Data Rosalinda rce(s) Supporting Document(s) HIV 1&2 screen centaur negative negative HIV 1&2 Scree n Centaur [place] ([facility]) ID Date Data Source [id number] 12/27/2020 09:08:00 AM EDT [place] ([facility]) Name Value Range Interpretation Code Description Data Rosalinda rce(s) Supporting Document(s) syphilis nonreactive nonreactive Syphilis [facility] ([facility]) ID Date Data Source [id number] 12/27/2020 09:08:00 AM EDT [place] ([facility]) Name Value Range Interpretation Code Description Data Rosalinda rce(s) Supporting Document(s) thyroid stimulating hormone 1.860 uIU/mL 0.358-3.740 Thyroid Stimulating Hormone [place] ([facility]) ID Date Data Source [id number] 12/27/2020 09:08:00 AM EDT [place] ([facility]) Name Value Range Interpretation Code Description Data Rosalinda rce(s) Supporting Document(s) HDL cholesterol 44 mg/dL >40 HDL Cholesterol ATHE NA ([facility]) triglycerides level 87 mg/dL <150 Triglycerides Le dilma [place] ([facility]) cholesterol level 174 mg/dL <200 Cholesterol Level [place] ([facility]) Cholesterol in LDL [Mass/volume] in Serum or Plasma 113 mg/dL <100 Above high normal LDL Cholesterol [facility] ([facility]) cholesterol risk ratio <5 Cholesterol R isk Ratio [facility] ([facility]) non-HDL-C 130 mg/dL Non-hdl-c [place] ([facility]) ID Date Data Source [id number] 12/27/2020 09:08:00 AM EDT [place] ([facility]) Name Value Range Interpretation Code Description Data Rosalinda rce(s) Supporting Document(s) hepatitis C virus victor m index < 0.0 <0.8 Hepatiti s C Virus Victor M Index [facility] ([facility]) ID Date Data Source [id number] 12/27/2020 09:08:00 AM EDT [place] ([facility]) Name Value Range Interpretation Code Description Data Rosalinda rce(s) Supporting Document(s) blood urea nitrogen 12 mg/dL 7-18 Blood Urea Nitro gen [facility] ([facility]) creatinine for GFR 1.00 mg/dL 0.70-1.30 Creatinine for GF R [place] ([facility]) glucose, fasting 78 mg/dL 70-100 Glucose, Fasting AT [facility]) sodium level 141 mEq/L 136-145 Sodium Level [place] ([facility]) potassium serum 4.3 mEq/L 3.5-5.1 Potassium Serum ATHE ([facility]) glomerular filtration rate > 60.0 >60 [place] r Filtration Rate [place] ([facility]) carbon dioxide level 29 mEq/L 21-32 Carbon Dioxide Level [place] ([facility]) anion gap 6 mEq/L 8-16 Below low normal Anion Gap [place] ( [facility]) chloride level 106 mEq/L 98-107 Chloride Level [place] ([facility]) ALT/SGPT 14 U/L 12-78 ALT/SGPT [place] ([facility]) calcium level 9.4 mg/dL 8.5-10.1 Calcium Level [place] ( [facility]) AST/SGOT 7 U/L 7-37 AST/SGOT [place] ([facility]) alkaline phosphatase 68 U/L 45-117 Alkaline Phosph atase [place] ([facility]) bilirubin,total 0.6 mg/dL 0.2-1.0 Bilirubin,total ATHE ([facility]) albumin 4.2 gm/dL 3.2-5.2 Albumin [place] ([facility]) total protein 7.8 gm/dL 6.4-8.2 Total Protein [place] ( [facility]) albumin/globulin ratio Albumin/globu siva Ratio [place] ([facility]) ID Date Data Source [id number] 12/27/2020 09:08:00 AM EDT [place] ([facility]) Name Value Range Interpretation Code Description Data Rosalinda rce(s) Supporting Document(s) white blood count 7.1 10 4.0-10.0 White Blood Count [place] ([facility]) red blood count 5.15 10 4.30-6.10 Red Blood Count ATHE ([facility]) hemoglobin 15.8 g/dL 13.5-17.5 Hemoglobin [place] ([facility]) mean corpuscular hemoglobin 30.7 pg 27.0-33.0 Mean Cor puscular Hemoglobin [place] ([facility]) mean corpuscular volume 92.0 fL 80.0-96.0 Mean Corpusc ular Volume [place] ([facility]) hematocrit 47.4 % 42.0-52.0 Hematocrit [place] ([facility]) red cell distribution width 12.2 % 11.5-14.5 Red Cell Distribution Width [place] ([facility]) mean corpuscular HGB conc 33.3 g/dL 32.0-36.5 Mean Corpu scular HGB Conc [place] ([facility]) platelet count, automated 294 10 150-450 Platelet C ount, Automated [place] ([facility]) neutrophils % 63.5 % 36.0-66.0 Neutrophils % [facility]) lymph % 30.0 % 24.0-44.0 Lymph % [place] ([facility]) mono % 4.8 % 2.0-8.0 [place] % [place] ([facility]) eos % 0.7 % 0.0-3.0 Eos % [place] ([facility]) immature granulocyte % 0.3 % 0-3.0 Immature Gran ulocyte % [place] ([facility]) nucleated red blood cell % 0.0 % 0-0 Nucleated Red Blood Cell % [place] ([facility]) neutrophils # 4.5 10 1.5-8.5 Neutrophils # [place] ( [facility]) baso % 0.7 % 0.0-1.0 Baso % [place] ([facility]) lymph # 2.1 10 1.5-5.0 Lymph # [place] ([facility]) eos # 0.1 10 0.0-0.5 Eos # [place] ([facility]) baso # 0.1 10 0.0-0.2 Baso # [place] ([facility]) mono # 0.3 10 0.0-0.8 [place] # [place] ([facility]) ID Date Data Source [id number] 12/27/2020 09:08:00 AM EDT [place] ([facility]) Name Value Range Interpretation Code Description Data Rosalinda rce(s) Supporting Document(s) HIV 1&2 screen centaur negative negative HIV 1&2 Scree n Centaur [place] ([facility]) ID Date Data Source [id number] 12/27/2020 09:08:00 AM EDT [facility]) Name Value Range Interpretation Code Description Data Rosalinda rce(s) Supporting Document(s) syphilis nonreactive nonreactive Syphilis [place] ([facility]) ID Date Data Source [id number] 12/27/2020 09:08:00 AM EDT [place] ([facility]) Name Value Range Interpretation Code Description Data Rosalinda rce(s) Supporting Document(s) thyroid stimulating hormone 1.860 uIU/mL 0.358-3.740 Thyroid Stimulating Hormone [place] ([facility]) ID Date Data Source [id number] 12/27[facility]2020 09:08[facility] Name Value Range Interpretation Code Description Data Rosalinda rce(s) Supporting Document(s) HDL cholesterol 44 mg/dL >40 HDL Cholesterol ATHE ([facility]) cholesterol level 174 mg/dL <200 Cholesterol Level [place] ([facility]) Cholesterol in LDL [Mass/volume] in Serum or Plasma 113 mg/dL <100 Above high normal LDL Cholesterol [facility] ([facility]) triglycerides level 87 mg/dL <150 Triglycerides Le dilma [place] ([facility]) non-HDL-C 130 mg/dL Non-hdl-c [place] ([facility]) cholesterol risk ratio <5 Cholesterol R isk Ratio [place] ([facility]) ID Date Data Source [id number] 12/27/2020 09:08:00 AM EDT [place] ([facility]) Name Value Range Interpretation Code Description Data Rosalinda rce(s) Supporting Document(s) hepatitis C virus victor m index < 0.0 <0.8 Hepatiti s C Virus Victor M Index [place] ([facility]) ID Date Data Source [id number] 12/27/2020 09:08:00 AM EDT [place] ([facility]) Name Value Range Interpretation Code Description Data Rosalinda rce(s) Supporting Document(s) glucose, fasting 78 mg/dL 70-100 Glucose, Fasting AT [facility]) glomerular filtration rate > 60.0 >60 [place]omerula r Filtration Rate [place] ([facility]) blood urea nitrogen 12 mg/dL 7-18 Blood Urea Nitro gen [place] ([facility]) creatinine for GFR 1.00 mg/dL 0.70-1.30 Creatinine for GF R [place] ([facility]) potassium serum 4.3 mEq/L 3.5-5.1 Potassium Serum ATHE NA ([facility]) chloride level 106 mEq/L 98-107 Chloride Level [place] ([facility]) sodium level 141 mEq/L 136-145 Sodium Level [place] ([facility]) calcium level 9.4 mg/dL 8.5-10.1 Calcium Level [place] ( [facility]) AST/SGOT 7 U/L 7-37 AST/SGOT [place] ([facility]) carbon dioxide level 29 mEq/L 21-32 Carbon Dioxide Level [place] ([facility]) anion gap 6 mEq/L 8-16 Below low normal Anion Gap [place] ( [facility]) ALT/SGPT 14 U/L 12-78 ALT/SGPT [place] ([facility]) alkaline phosphatase 68 U/L 45-117 Alkaline Phosph atase [place] ([facility]) bilirubin,total 0.6 mg/dL 0.2-1.0 Bilirubin,total ATHE NA ([facility]) total protein 7.8 gm/dL 6.4-8.2 Total Protein [place] ( [facility]) albumin 4.2 gm/dL 3.2-5.2 Albumin [place] ([facility]) albumin/globulin ratio Albumin/globu siva Ratio [place] ([facility]) ID Date Data Source [id number] 12/27/2020 09:08:00 AM EDT [place] ([facility]) Name Value Range Interpretation Code Description Data Rosalinda rce(s) Supporting Document(s) white blood count 7.1 10 4.0-10.0 White Blood Count [place] ([facility]) red blood count 5.15 10 4.30-6.10 Red Blood Count ATHE ([facility]) mean corpuscular volume 92.0 fL 80.0-96.0 Mean Corpusc ular Volume [place] ([facility]) hemoglobin 15.8 g/dL 13.5-17.5 Hemoglobin [place] ([facility]) hematocrit 47.4 % 42.0-52.0 Hematocrit [place] ([facility]) mean corpuscular hemoglobin 30.7 pg 27.0-33.0 Mean Cor puscular Hemoglobin [place] ([facility]) mean corpuscular HGB conc 33.3 g/dL 32.0-36.5 Mean Corpu scular HGB Conc [place] ([facility]) red cell distribution width 12.2 % 11.5-14.5 Red Cell Distribution Width [place] ([facility]) platelet count, automated 294 10 150-450 Platelet C ount, Automated [place] ([facility]) lymph % 30.0 % 24.0-44.0 Lymph % [place] ([facility]) neutrophils % 63.5 % 36.0-66.0 Neutrophils % [place] ( [facility]) immature granulocyte % 0.3 % 0-3.0 Immature Gran ulocyte % [place] ([facility]) eos % 0.7 % 0.0-3.0 Eos % [place] ([facility]) baso % 0.7 % 0.0-1.0 Baso % [place] ([facility]) mono % 4.8 % 2.0-8.0 [place] % [place] ([facility]) nucleated red blood cell % 0.0 % 0-0 Nucleated Red Blood Cell % [place] ([facility]) neutrophils # 4.5 10 1.5-8.5 Neutrophils # [place] ( [facility]) lymph # 2.1 10 1.5-5.0 Lymph # [place] ([facility]) mono # 0.3 10 0.0-0.8 [place] # [place] ([facility]) eos # 0.1 10 0.0-0.5 Eos # [place] ([facility]) baso # 0.1 10 0.0-0.2 Baso # [place] ([facility]) Procedure Social History No Information Vital Signs ID Date Data Source UNK Name Value Range Interpretation Code Description Data Source(s) Body height 68 [in_i] 68 [in_i] [place] ([facility]) Body height 68 [in_i] 68 [in_i] [place] ([facility]) Body height 68 [in_i] 68 [in_i] [place] ([facility]) Diastolic blood pressure 99 mm[Hg] 99 mm[Hg] [facility] ([facility] Body height 68 [in_i] 68 [in_i] [facility] ([facility]) Body mass index (BMI) [Ratio] 24 kg/m2 24 kg/ m2 [place] ([facility]) Systolic blood pressure 154 mm[Hg] 154 mm[Hg] A THENA ([facility]) Body weight 157.8 [lb_av] 157.8 [lb_av] [facility] ([facility]) Diastolic blood pressure 99 mm[Hg] 99 mm[Hg] [place] ([facility]) Body height 68 [in_i] 68 [in_i] [place] ([facility]) Body mass index (BMI) [Ratio] 23.5 kg/m2 23.5 k g/m2 [place] ([facility]) Systolic blood pressure 137 mm[Hg] 137 [facility]Hg[facility] Body weight 2470.4 [oz_av] 2470.4 [oz_av] ATHEN A ([facility]) Diastolic blood pressure 99 mm[Hg] 99 mm[Hg] [place] ([facility]) Body height 68 [in_i] 68 [in_i] [place] ([facility]) Body mass index (BMI) [Ratio] 23.5 kg/m2 23.5 k g/m2 [place] ([facility]) Systolic blood pressure 137 mm[Hg] 137 mm[Hg] [facility] Body weight 2470.4 [oz_av] 2470.4 [oz_av] ATHEN A ([facility]) Diastolic blood pressure 99 mm[Hg] 99 mm[Hg] [place] ([facility]) Body height 68 [in_i] 68 [in_i] [place] ([facility]) Body mass index (BMI) [Ratio] 23.5 kg/m2 23.5 k g/m2 [place] ([facility]) Systolic blood pressure 137 mm[Hg] 137 mm[Hg] A THENA ([facility]) Body weight 2470.4 [oz_av] 2470.4 [oz_av] ATHEN A ([facility]) Diastolic blood pressure 85 mm[Hg] 85 mm[Hg] [place] ([facility]) Body height 68 [in_i] 68 [in_i] [place] ([facility]) Body mass index (BMI) [Ratio] 23.1 kg/m2 23.1 k g/m2 [place] ([facility]) Systolic blood pressure 127 mm[Hg] 127 mm[Hg] A [facility] ([facility]) Body weight 2428.8 [oz_av] 2428.8 [oz_av] ATHEN A ([facility]) Diastolic blood pressure 85 mm[Hg] 85 mm[Hg] [place] ([facility]) Body height 68 [in_i] 68 [in_i] [place] ([facility]) Body mass index (BMI) [Ratio] 23.1 kg/m2 23.1 k g/m2 [place] ([facility]) Systolic blood pressure 127 mm[Hg] 127 mm[Hg] A [place] ([facility]) Body weight 2428.8 [oz_av] 2428.8 [oz_av] ATHEN A ([facility]) Body height 68 [in_i] 68 [in_i] [place] ([facility]) Body mass index (BMI) [Ratio] 23.1 kg/m2 23.1 k g/m2 [place] ([facility]) Systolic blood pressure 127 mm[Hg] 127 mm[Hg] A THENA ([facility]) Body weight 2428.8 [oz_av] 2428.8 [oz_av] ATHEN A ([facility]) Diastolic blood pressure 85 mm[Hg] 85 mm[Hg] [place] ([facility]) Diastolic blood pressure 85 mm[Hg] 85 mm[Hg] [place] ([facility]) Body height 68 [in_i] 68 [in_i] [place] ([facility]) Body mass index (BMI) [Ratio] 23.1 kg/m2 23.1 k g/m2 [place] ([facility]) Systolic blood pressure 127 mm[Hg] 127 mm[Hg] A THENA ([facility]) Body weight 2428.8 [oz_av] 2428.8 [oz_av] ATHEN A ([facility]) Heart rate 97 /min 97 /min [facility] ([facility]) Diastolic blood pressure 89 mm[Hg] 89 mm[Hg] [facility] ([facility]) Systolic blood pressure 142 mm[Hg] 142 mm[Hg] Emily RANGEL ([facility]) Oxygen saturation in Arterial blood by Pulse oximetry 99 % 99 % [facility] ([facility]) Room Air Body temperature 98.6 [degF] 98.6 [degF] [facility] ([facility]) Body height 68 [in_i] 68 [in_i] [facility] ([facility]) 5'8" [place] body weight 154 [lb_av] 154 [lb_av] MEDEN T ([facility]) Body temperature 98.4 [degF] 98.4 [degF] [facility] ([facility]) Body height 68 [in_i] 68 [in_i] [facility] ([facility]) 5'8" Body weight 151.00 [lb_av] 151.00 [lb_av] MEDEN T ([facility]) Body mass index (BMI) [Ratio] 23.0 kg/m2 23.0 k g/m2 [facility] ([facility]) [place] body weight 154 [lb_av] 154 [lb_av] MEDEN T ([facility]) Body weight 68.494 kg 68.494 kg [facility] ([facility]) Body surface area Derived from formula 1.81 m2 1.81 m2 [facility] ([facility]) Body temperature 98.8 [degF] 98.8 [degF] [facility] ([facility]) Body height 68 [in_i] 68 [in_i] [facility] ([facility]) 5'8" Body weight 151.88 [lb_av] 151.88 [lb_av] MEDEN T ([facility]) Body mass index (BMI) [Ratio] 23.1 kg/m2 23.1 k g/m2 [facility] ([facility]) [place] body weight 154 [lb_av] 154 [lb_av] MEDEN T ([facility]) Body weight 68.900 kg 68.900 kg [facility] ([facility]) Body surface area Derived from formula 1.82 m2 1.82 m2 [facility] ([facility]) Patient Treatment Plan of Care Planned Activity Planned Date Details Description Data Source (s) Naproxen 500 MG Oral Tablet [place] ([facility]) Metronidazole 500 MG Oral Tablet [place] ([facility]) Doxycycline Monohydrate 100 MG Oral Capsule [place] ([facility]) Naproxen 500 MG Oral Tablet [place] ([facility]) Metronidazole 500 MG Oral Tablet [place] ([facility]) Doxycycline Monohydrate 100 MG Oral Capsule [place] ([facility]) Naproxen 500 MG Oral Tablet [facility] ([facility]) Metronidazole 500 MG Oral Tablet [place] ([facility]) Doxycycline Monohydrate 100 MG Oral Capsule [facility] ([facility]) Naproxen 500 MG Oral Tablet [facility] ([facility])
--- OUTSIDE RECORDS SUMMARY | 2021-08-07 02:53 | CCD ---
Author Organization Unknown Address [address] [place] [address] Phone [phone] Care Team Providers Care Unit Director Name Role Phone [facility] 212 [phone] Allergies Code Code System Name Reaction Severity Status Onset NKDA Medications Name Status Start Date Stop Date doxycycline monohydrate 100 mg capsule TAKE ONE [...] Result Interpretation Description Value Range Status Address 03/27/2021 UA W/ Reflex to Culture Normal Appearance, Urine Rfx clear clear Final [facility]: [address] [facility] Normal Color, Urine Rfx yellow yellow [facility]: [address] [facility] Normal pH,urine Rfx 6.0 units 5.0-9.0 units [facility]: [address] [facility] Normal Specific Ward Ur Auto Rfx 1.021 1.002-1.035 [facility]: [address] [facility] Normal Protein, Urine Auto Rfx negative mg/ dL negative mg/dL [facility]: [address] [facility] Normal Glucose, Urine (UA) Auto Rfx n egative mg/dL negative mg/dL [facility]: [address] [facility] Normal Ketone, Urine Auto Rfx negative mg/d L negative mg/dL [facility]: [address] [facility] High Urobilinogen, Urine Auto Rfx 2.0 mg/ dL 0.0-2.0 mg/dL [facility]: [address] [facility] Normal Bilirubin, Urine Auto Rfx negative n egative [facility]: [address] [facility] Normal Nitrite, Urine Auto Rfx negative neg ative [facility]: [address] [facility] Normal Leukocyte Esterase Ur Auto Rfx negat simone negative [facility]: [address] [facility] Normal Blood, Urine Blood Rfx negative nega tive [facility]: [address] [facility] Normal WBC, Urine Auto Rfx 0 /hpf 0-3 /hpf [facility]: [address] [facility] Normal RBC, Urine Auto Rfx 0 /hpf 0-3 /hpf [facility]: [address] [facility] Normal Bacteria, Urine Auto Rfx negative ne gative [facility]: [address] [facility] Normal Squam Epithelial Cell Ur Aurfx 0 /hp f 0-6 /hpf [facility]: [address] [facility] Normal Mucus, Urine Rfx small negative Fin al [facility]: [address] [facility] Normal Hyaline Cast, Urine Auto Rfx 0 /lpf 0-1 /lpf [facility]: [address] [facility] 03/27/2021 Chlamydia, GC & Trich Amp Normal Ch lamydia DNA Amplification negative negative [facility] nter: [address] [facility] Normal GC DNA Amplification negative negati ve [facility]: [address] [facility] Normal Trichomonas Vaginalis (Amp) not dete cted negative [facility]: [address] [place] [address] 03/27/2021 Hepatitis C Ab, Serum Normal Hepati tis C Virus Myra Index 0.0 index <0.8 index [facility] nter: [address] [place] [address] 03/27/2021 HBsAg (Hepatitis B Surface Ag), Serum Normal Hepatitis B Surface Antigen negative negative Final [facility]: [address] [place] [address] 03/27/2021 Hepatitis B Surface Ab, Qualitative, Serum Norm al Hepatitis B Surface Antibody positive positive [facility]: [address] [place] [address] 03/27/2021 Syphilis Normal Syphilis nonreactive nonreacti ve [facility]: [address] [place] [address] 03/27/2021 HIV 1+2 AB + HIV 1 P24 Ag, Qualitative Immunoassay, Serum Normal HIV 1&2 Screen [facility] negative negative [facility]: [address] [place] [address] 02/14/2021 CBC W/ Auto Diff High White Blood Count 10.3 10 4.0-10.0 10 [facility]: [address] [place] [address] Normal Red Blood Count 5.09 10 4.30-6.10 10 [facility]: [address] [place] [address] Normal Hemoglobin 15.4 g/dL 13.5-17.5 g/dL [facility]: [address] [place] [address] Normal Hematocrit 45.8 % 42.0-52.0 % [facility]: [address] [place] [address] Normal Mean Corpuscular Volume 90.0 fL 80.0 -96.0 fL [facility]: [address] [place] [address] Normal Mean Corpuscular Hemoglobin 30.3 pg 27.0-33.0 pg [facility]: [address] [place] [address] Normal Mean Corpuscular HGB Conc 33.6 g/dL 32.0-36.5 g/dL [facility]: [address] [place] [address] Normal Red Cell Distribution Width 11.6 % 1 1.5-14.5 % [facility]: [address] [facility] Normal Platelet Count, Automated 281 10 150 -450 10 [facility]: [address] [facility] High Neutrophils % 76.0 % 36.0-66.0 % [facility]: [address] [facility] Low Lymph % 18.9 % 24.0-44.0 % [facility]: [address] [facility] Normal Panola % 4.0 % 2.0-8.0 % Final [facility]: [address] [place] [address] Normal Eos % 0.3 % 0.0-3.0 % [facility]: [address] [place] [address] Normal Baso % 0.4 % 0.0-1.0 % [facility]: [address] [place] [address] Normal Immature Granulocyte % 0.4 % 0-3.0 % [facility]: [address] [place] [address] Normal Nucleated Red Blood Cell % 0.0 % 0- 0 % [facility]: [address] [facility] Normal Neutrophils # 7.8 10 1.5-8.5 10 [facility]: [address] [facility] Normal Lymph # 2.0 10 1.5-5.0 10 [facility]: 0 [facility] Normal Panola # 0.4 10 0.0-0.8 10 [facility]: 0 [facility] Normal Eos # 0.0 10 0.0-0.5 10 [facility]: [address] [facility] Normal Baso # 0.0 10 0.0-0.2 10 [facility]: [address] [place] [address] 02/14/2021 Hepatitis C Ab, Serum Normal Hepati tis C Virus Myra Index 0.1 index <0.8 index [facility] nter: [address] [place] [address] 02/14/2021 HBsAg (Hepatitis B Surface Ag), Serum Normal Hepatitis B Surface Antigen negative negative [facility] Center: [address] [place] [address] 02/14/2021 Hepatitis B Surface Ab, Qualitative, Serum Norm al Hepatitis B Surface Antibody positive positive Final [facility] Center: [address] [facility] 02/14/2021 Syphilis Normal Syphilis nonreactive nonreacti ve [facility]: [address] [facility] 02/14/2021 HIV 1+2 AB + HIV 1 P24 Ag, Qualitative Immunoassay, Serum Normal HIV 1&2 Screen Centaur negative negative Final [facility]: [address] [facility] 02/14/2021 Hsv Type 1&2 IgG Specific Normal Hs v Type I IgG Specific <0.91 index 0.00-0.90 index [facility] nter: [address] [facility] Hsv Type II IgG Specific 14.80 index 0.00-0.90 index [facility]: [address] [facility] 02/14/2021 Hepatitis B Core Antibody IgG Normal Hepatitis B Core Antibody IgG negative negative Final [facility]: [address] [facility] 02/14/2021 Chlamydia & GC DNA Probes Normal Chlamydia DNA Probe negative negative [facility]: [address] 0 [facility] Normal GC DNA Probe negative negative [facility]: [address] [facility] 01/01/2021 Chlamydia, GC & Trich Amp High Ch lamydia DNA Amplification positive negative [facility] nter: [address] [facility] High GC DNA Amplification positive negati ve [facility]: [address] [facility] High Trichomonas Vaginalis (Amp) positive negative [facility]: [address] [facility] 12/27/2020 CBC W/ Auto Diff Blood venous Normal White Blood C ount 7.1 10 4.0-10.0 10 [facility]: [address] 0 [facility] Blood venous Normal Red Blood Count 5.15 10 4.30- 6.10 10 [facility]: [address] [facility] Blood venous Normal Hemoglobin 15.8 g/dL 13.5-17. 5 g/dL [facility]: [address] [place] [address] Blood venous Normal Hematocrit 47.4 % 42.0-52.0 % [facility]: [address] [place] [address] Blood venous Normal Mean Corpuscular Volume 92.0 fL 80.0-96.0 fL [facility]: [address] [place] [address] Blood venous Normal Mean Corpuscular Hemoglob in 30.7 pg 27.0-33.0 pg [facility]: [address] [place] [address] Blood venous Normal Mean Corpuscular HGB Conc 33.3 g/dL 32.0-36.5 g/dL [facility]: [address] [place] [address] Blood venous Normal Red Cell Distribution Wid th 12.2 % 11.5-14.5 % [facility]: [address] [place] [address] Blood venous Normal Platelet Count, Automated 294 10 150-450 10 [facility]: [address] [place] [address] Blood venous Normal Neutrophils % 63.5 % 36.0-66. 0 % [facility]: [address] [place] [address] Blood venous Normal Lymph % 30.0 % 24.0-44.0 % [facility]: [address] [place] [address] Blood venous Normal Panola % 4.8 % 2.0-8.0 % [facility]: [address] [place] [address] venous Normal Eos % 0.7 % 0.0-3.0 % [facility]: [address] [place] [address] Blood venous Normal Baso % 0.7 % 0.0-1.0 % [facility]: [address] [place] [address] Blood venous Normal Immature Granulocyte % 0.3 % 0-3.0 % [facility]: [address] [place] [address] Blood venous Normal Nucleated Red Blood Cell % 0. 0 % 0-0 % [facility]: [address] [place] [address] Blood venous Normal Neutrophils # 4.5 10 1.5-8.5 10 [facility]: [address] [place] [address] Blood venous Normal Lymph # 2.1 10 1.5-5.0 10 [facility]: [address] [place] [address] Blood venous Normal Panola # 0.3 10 0.0-0.8 10 [facility]: [address] [place] [address] Blood venous Normal Eos # 0.1 10 0.0-0.5 10 [facility]: [address] [place] [address] Blood venous Normal Baso # 0.1 10 0.0-0.2 10 [facility]: [address] [place] [address] 12/27/2020 CMP, Serum or Plasma Blood venous Normal Glu cose, Fasting 78 mg/dL 70-100 mg/dL [facility] nter: [address] [place] [address] Blood venous Normal Blood Urea Nitrogen 12 mg/dL 7-18 mg/dL [facility]: [address] [place] [address] Blood venous Normal Creatinine for GFR 1.00 mg/dL 0.70-1.30 mg/dL [facility]: [address] [place] [address] Blood venous Normal Glomerular Filtration Rate > 60.0 >60 [facility]: [address] [place] [address] Blood venous Normal Sodium Level 141 mEq/L 136-14 5 mEq/L [facility]: [address] [place] [address] Blood venous Normal Potassium Serum 4.3 mEq/L 3.5 -5.1 mEq/L [facility]: [address] [place] [address] Blood venous Normal Chloride Level 106 mEq/L 98-1 07 mEq/L [facility]: [address] [place] [address] Blood venous Normal Carbon Dioxide Level 29 mEq/L 21-32 mEq/L [facility]: [address] [place] [address] Blood venous Low Anion Gap 6 mEq/L 8-16 mEq/L [facility]: [address] [place] [address] Blood venous Normal Calcium Level 9.4 mg/dL 8.5-1 0.1 mg/dL [facility]: [address] [place] [address] Blood venous Normal AST/SGOT 7 U/L 7-37 U/L [facility]: [address] [place], [place] [address] Blood venous Normal ALT/SGPT 14 U/L 12-78 U/L [facility]: [address] [facility] Blood venous Normal Alkaline Phosphatase 68 U/L 4 5-117 U/L [facility]: [address] [facility] Blood venous Normal Bilirubin,total 0.6 mg/dL 0.2 -1.0 mg/dL [facility]: [address] [facility] Blood venous Normal Total Protein 7.8 gm/dL 6.4-8 .2 gm/dL [facility]: [address] [facility] Blood venous Normal Albumin 4.2 gm/dL 3.2-5.2 gm/ dL [facility]: 0 [facility] Blood venous Normal Albumin/globulin Ratio 1.2 [facility]: [address] [facility] 12/27/2020 Hepatitis C Ab, Serum Normal Hepati tis C Virus Myra Index < 0.0 index <0.8 index [facility] nter: [address] [facility] 12/27/2020 Lipid Panel, Blood Normal Triglycerides Lev el 87 mg/dL <150 mg/dL [facility]: [address] 0 [facility] Normal Cholesterol Level 174 mg/dL <200 mg/ dL [facility]: [address] [facility] Normal HDL Cholesterol 44 mg/dL >40 mg/dL F inal [facility]: [address] [facility] High LDL Cholesterol 113 mg/dL <100 mg/dL [facility]: [address] [facility] Normal Non-hdl-c 130 mg/dL [facility]: [address] [facility] Normal Cholesterol Risk Ratio 3.954 <5 [facility]: [address] [facility] 12/27/2020 TSH, Serum or Plasma Blood venous Normal Thyroid Stimulating Hormone 1.860 uIU/mL 0.358-3.740 uIU/mL [facility] ical Center: [address] [facility] 12/27/2020 Syphilis Normal Syphilis nonreactive nonreacti ve Final [facility]: [address] [facility] 12/27/2020 HIV 1+2 AB + HIV 1 P24 Ag, Qualitative Immunoassay, Serum Normal HIV 1&2 Screen Centaur negative negative Final [facility]: [address] [facility] 12/27/2020 Chlamydia & GC DNA Probes Normal Chlamydia DNA Probe negative negative Final [facility]: [address] 0 [facility] Normal GC DNA Probe negative negative Final [facility]: [address] [facility] 12/27/2020 Chlamydia & GC DNA Probes Normal Chlamydia DNA Probe negative negative Final [facility]: [address] 0 [facility] Normal GC DNA Probe negative negative Final [facility]: [address] [facility] Past Encounters 07/18/2021 Tye Apodaca MD: [address] [place] [phone], Ph. 02/14/2021 Nicotine Dependence; History of Sexually Transmitted Disease; Painless Rectal Bleeding Padmini Lovett MD: [address] [place] [phone], Ph. 12/27/2020 Nicotine Dependence; Patient New to Facility; Venereal Disease Screening; Pain in Left Arm; Neck Pain; Hyperlipidemia Screening; Adult Health Examination Padmini Lovett MD: [address] [place] [phone], Ph. Social History Tobacco Smoking Status Heavy Tobacco Smoker (1/2 pack per a day) Vaccine List None recorded. Plan of Care Reminders Provider Appointments None recorded. Lab None recorded. Referral None recorded. Procedures None recorded. Surgeries None recorded. Imaging None recorded. Vitals 07/18/2021 01:00PM NURSE LAB COLLECTION Height 68 in 02/14/2021 03:00PM ESTABLISHED [id number] Height Weight BMI Blood Pressure 68 in 154 lbs 6.4 oz 23.5 kg/m2 137/99 mm[Hg ] 12/27/2020 08:20AM NEW PATIENT (11yrs - OLDER) Height Weight BMI Blood Pressure 68 in 151 lbs 12.8 oz 23.1 kg/m2 127/85 mm[H g]
--- OUTSIDE RECORDS SUMMARY | 2021-08-07 08:03 | CCD ---
Author Author [facility] Organization [facility] Address Unknown Phone Unavailable Care Team Providers Care Extrusion Press Operator Name Role Phone Kirstin Apodaca MD Unavailable [...] Unavailable Unavailable Kirstin Apodaca MD Unavailable Unavailable Kirstni Apodaca MD Unavailable Unavailable Kirstin Apodaca MD [...] S Augustine MD Unavailable Unavailable Bolla, S uAgustine BEAR Unavailable Unavailable Bolla, S Augustine BEAR [...] is protected by Article 27-F of the [place] Public Health law. If you continue you may have access to information: Regarding HIV / AIDS; Provided by facilities licensed or operated by the [facility] Office of Mental Health; or Provided by the [facility] Office for People With Developmental Disabilities. If such information is present, then the following [facility] mandated warning applies: This information [...] law may result in a fine or snf sentence or both. A general authorization for the release of medical or other information is NOT sufficient authorization for further disc losure. Encounters Encounter Providers Location Date Indications Data Source(s ) Padmini Lovett MD: [address] [place] [address], Ph. Attender: Padmini Lovett [facility] Medical 07/25/2021 12:00:00 AM EDT [place] ([facility]) Tye Apodaca MD: [address] [place] [address], Ph. Attender: Tye Apodaca MD [facility] Medical 07/18/2021 12:00:00 AM EDT [place] ([facility]) Tye Apodaca MD: [address] [place] [address], Ph. Attender: Tye Apodaca MD [facility] Medical 07/18/2021 12:00:00 AM EDT [place] ([facility]) Augustine Núñez MD: [address] [facility] [address], [place] [address], Ph. Attender: Augustine Núñez MD [facility] Office 02/20/2021 12:00:00 AM EDT [place] ([facility]) Padmini Lovett MD: [address] [place] [address], Ph. Attender: Padmini Lovett [facility] Medical 02/14/2021 12:00:00 AM EDT [place] ([facility]) Padmini Lovett MD: [address], [place] [address], Ph. Attender: Padmini Lovett [facility] Medical 02/14/2021 12:00:00 AM EDT [place] ([facility]) Padmini Lovett MD: [address], [place] [address], Ph. Attender: Padmini Lovett [facility] Medical 02/14/2021 12:00:00 AM EDT [place] ([facility]) Padmini Lovett MD: [address], [place] [address], Ph. Attender: Padmini Lovett [facility] Medical 12/27/2020 12:00:00 AM EDT [place] ([facility]) Padmini Lovett MD: [address], [place] [address], Ph. Attender: Padmini Lovett [facility] Medical 12/27/2020 12:00:00 AM EDT [place] ([facility]) Padmini Lovett MD: [address], [place] [address], Ph. Attender: Padmini Lovett [facility] Medical 12/27/2020 12:00:00 AM EDT [place] ([facility]) Padmini Lovett MD: [address], [place] [address], Ph. Attender: Padmini Lovett [facility] Medical 12/27/2020 12:00:00 AM EDT [place] ([facility]) Outpatient Attender: Tye Bernal/Tessy/Lee/Kae najera 11/16/2020 12:30:00 PM EST [facility] ([facility], ) Medications Medication Brand Name Start Date Product Form Dose Route Admi nistrative Instructions Pharmacy Instructions Status Indications Reaction Description Data Source(s) Naproxen 500 MG Delayed Release Oral Tablet Naproxen 10/24 12:00:00 AM EST ORAL active [facility] ( [facility], ) Naproxen 500 MG Oral Tablet naproxen 500 mg tablet TAKE ONE TABLET BY MOUTH TWICE A DAY naproxen 500 mg tablet TAKE ONE TABLET BY MOUTH TWICE A DAY completed naproxen 500 MG Oral Tabl et [place] ([facility]) Metronidazole 500 MG Oral Tablet metroni dazole 500 mg tablet TAKE ONE TABLET BY MOUTH TWICE A DAY metronidazole 500 mg tablet TAKE ONE TAB LET BY MOUTH TWICE A DAY completed metronidazole 50 0 MG Oral Tablet [place] ([facility]) Naproxen 500 MG Oral Tablet naproxen 500 mg tablet TAKE ONE TABLET BY MOUTH TWICE A DAY naproxen 500 mg tablet TAKE ONE TABLET BY MOUTH TWICE A DAY completed naproxen 500 MG Oral Tabl et [place] ([facility]) Doxycycline Monohydrate 100 MG Oral Caps ule doxycycline monohydrate 100 mg capsule TAKE ONE CAPSULE BY MOUTH EVERY 12 HOURS doxycycline monohydrate 100 mg capsule TAKE ONE CAPSULE BY MOUTH EVERY 12 HOURS completed doxycycline monohydrate 100 MG Oral Capsule [place] ([facility]) Naproxen 500 MG Oral Tablet naproxen 500 mg tablet TAKE ONE TABLET BY MOUTH TWICE A DAY naproxen 500 mg tablet TAKE ONE TABLET BY MOUTH TWICE A DAY completed naproxen 500 MG Oral Tabl et [place] ([facility]) Naproxen 500 MG Oral Tablet naproxen 500 mg tablet TAKE ONE TABLET BY MOUTH TWICE A DAY naproxen 500 mg tablet TAKE ONE TABLET BY MOUTH TWICE A DAY completed naproxen 500 MG Oral Tabl et [place] ([facility]) Metronidazole 500 MG Oral Tablet metroni dazole 500 mg tablet TAKE ONE TABLET BY MOUTH TWICE A DAY metronidazole 500 mg tablet TAKE ONE TAB LET BY MOUTH TWICE A DAY completed metronidazole 50 0 MG Oral Tablet [place] ([facility]) Metronidazole 500 MG Oral Tablet metroni dazole 500 mg tablet TAKE ONE TABLET BY MOUTH TWICE A DAY metronidazole 500 mg tablet TAKE ONE TAB LET BY MOUTH TWICE A DAY completed metronidazole 50 0 MG Oral Tablet [place] ([facility]) Doxycycline Monohydrate 100 MG Oral Caps ule doxycycline monohydrate 100 mg capsule TAKE ONE CAPSULE BY MOUTH EVERY 12 HOURS doxycycline monohydrate 100 mg capsule TAKE ONE CAPSULE BY MOUTH EVERY 12 HOURS completed doxycycline monohydrate 100 MG Oral Capsule [place] ([facility]) Doxycycline Monohydrate 100 MG Oral Caps ule doxycycline monohydrate 100 mg capsule TAKE ONE CAPSULE BY MOUTH EVERY 12 HOURS doxycycline monohydrate 100 mg capsule TAKE ONE CAPSULE BY MOUTH EVERY 12 HOURS completed doxycycline monohydrate 100 MG Oral Capsule [place] ([facility]) Insurance Providers Payer name Policy type / Coverage type Policy ID Covered green party ID Covered green party's relationship to membreno Policy Membreno Plan Information Managed Care - [facility] P [id number] S [id number] Medicaid S [id number] S [id number] [facility] O UNAVAILABLE [id number] S UNAVAILABLE MEDICAID M [id number] S [id number] [facility] [id number] SP [id number] [facility] [id number] SP [id number] MEDICAID [id number] SP [id number] [facility] O [id number] S [id number] Problems, Conditions, and Diagnoses Code Display Name Description Problem Type Effective Dates Data Source(s) 445959020 History of sexually transmitted disease History of Sexually Transmitted Disease Problem 05/14/2021 12:00:00 AM EDT [facility]) [id number] History of sexually transmitted disease History of Sexually Transmitted Disease Problem 05/14/2021 12:00:00 AM EDT [facility]) [id number] Pain in left arm Pain in Left Arm Problem 12/27/2020 12 :00:00 AM EDT [facility]) [id number] Neck pain Neck Pain Problem 12/27/2020 12:00:00 AM ED T [place] ([facility]) [id number] Pain in left arm Pain in Left Arm Problem 12/27/2020 12 :00:00 AM EDT [place] ([facility]) [id number] Neck pain Neck Pain Problem 12/27/2020 12:00:00 AM ED T [place] ([facility]) [id number] Pain in left arm Pain in Left Arm Problem 12/27/2020 12 :00:00 AM EDT [place] ([facility]) 03433124 Neck pain Neck Pain Problem 12/27/2020 12:00:00 AM ED T [place] ([facility]) 061005631 Pain in left arm Pain in Left Arm Problem 12/27/2020 12 :00:00 AM EDT [place] ([facility]) [id number] Neck pain Neck Pain Problem 12/27/2020 12:00:00 AM ED T [place] ([facility]) [id number] Body measurement finding Body Measurement Finding Prob chandrika 11/17/2017 12:00:00 AM EST - 12/26/2020 12:00:00 AM EDT [place] ([facility]) [id number] Tobacco use and exposure - finding Tobacco Use a nd Exposure - Finding Problem 11/17/2017 12:00:00 AM EST - 12/26/2020 12:00:00 AM ED T [place] ([facility]) 07804869 Dysuria Dysuria Problem 11/17/2017 12:0 0:00 AM EST - 12/27/2020 12:00:00 AM EDT [place] ([facility]) [id number] Disorder of penis Disorder of Penis Problem 11/17 12:00:00 AM EST - 12/27/2020 12:00:00 AM EDT [place] ([facility]) [id number] Nongonococcal urethritis Nongonococcal Urethritis Prob chandrika 11/17/2017 12:00:00 AM EST - 12/26/2020 12:00:00 AM EDT [place] ([facility]) 905208152 Body measurement finding Body Measurement Finding Prob chandrika 11/17/2017 12:00:00 AM EST - 12/26/2020 12:00:00 AM EDT [place] ([facility]) 371888249 Tobacco use and exposure - finding Tobacco Use a nd Exposure - Finding Problem 11/17/2017 12:00:00 AM EST - 12/26/2020 12:00:00 AM ED T [place] ([facility]) 27191500 Dysuria Dysuria Problem 11/17/2017 12:0 0:00 AM EST - 12/27/2020 12:00:00 AM EDT [place] ([facility]) 68234332 Disorder of penis Disorder of Penis Problem 11/17 12:00:00 AM EST - 12/27/2020 12:00:00 AM EDT [place] ([facility]) 43339071 Nongonococcal urethritis Nongonococcal Urethritis Prob chandrika 11/17/2017 12:00:00 AM EST - 12/26/2020 12:00:00 AM EDT [place] ([facility]) 129112051 Body measurement finding Body Measurement Finding Prob chandrika 11/17/2017 12:00:00 AM EST - 12/26/2020 12:00:00 AM EDT [place] ([facility]) [id number] Tobacco use and exposure - finding Tobacco Use a nd Exposure - Finding Problem 11/17/2017 12:00:00 AM EST - 12/26/2020 12:00:00 AM ED T [place] ([facility]) 89901120 Dysuria Dysuria Problem 11/17/2017 12:0 0:00 AM EST - 12/27/2020 12:00:00 AM EDT [place] ([facility]) 29887427 Disorder of penis Disorder of Penis Problem 11/17 12:00:00 AM EST - 12/27/2020 12:00:00 AM EDT [place] ([facility]) 94349807 Nongonococcal urethritis Nongonococcal Urethritis Prob chandrika 11/17/2017 12:00:00 AM EST - 12/26/2020 12:00:00 AM EDT [place] ([facility]) 193149821 Body measurement finding Body Measurement Finding Prob chandrika 11/17/2017 12:00:00 AM EST - 12/26/2020 12:00:00 AM EDT [place] ([facility]) 487369781 Tobacco use and exposure - finding Tobacco Use a nd Exposure - Finding Problem 11/17/2017 12:00:00 AM EST - 12/26/2020 12:00:00 AM ED T [place] ([facility]) 20633367 Dysuria Dysuria Problem 11/17/2017 12:0 0:00 AM EST - 12/27/2020 12:00:00 AM EDT [place] ([facility]) 61719954 Disorder of penis Disorder of Penis Problem 11/17 12:00:00 AM EST - 12/27/2020 12:00:00 AM EDT [place] ([facility]) 75286755 Nongonococcal urethritis Nongonococcal Urethritis Prob chandrika 11/17/2017 12:00:00 AM EST - 12/26/2020 12:00:00 AM EDT [place] ([facility]) [id number] Body measurement finding Body Measurement Finding Prob chandrika 10/07/2017 12:00:00 AM EST - 12/26/2020 12:00:00 AM EDT [place] ([facility]) [id number] Body measurement finding Body Measurement Finding Prob chandrika 10/07/2017 12:00:00 AM EST - 12/26/2020 12:00:00 AM EDT [place] ([facility]) [id number] Body measurement finding Body Measurement Finding Prob chandrika 10/07/2017 12:00:00 AM EST - 12/26/2020 12:00:00 AM EDT [place] ([facility]) [id number] Body measurement finding Body Measurement Finding Prob chandrika 10/07/2017 12:00:00 AM EST - 12/26/2020 12:00:00 AM EDT [place] ([facility]) Surgeries/Procedures Procedure Description Date Indications Data Source(s) MRI, cervical spine, w/o contrast 02/20/2021 12:00:00 AM EDT [place] ([facility]) Results ID Date Data Source [id number] 07/25/2021 12:53:00 PM EDT [place] ([facility]) Name Value Range Interpretation Code Description Data Rosalinda rce(s) Supporting Document(s) chlamydia DNA amplification positive negative Above high no rmal Chlamydia DNA Amplification [place] ([facility]) GC DNA amplification negative negative GC DNA Amplific ation [facility]) ID Date Data Source [id number] 07/25/2021 12:00:00 AM EDT [facility]) Name Value Range Interpretation Code Description Data Rosalinda rce(s) Supporting Document(s) Reagin Ab [Presence] in Serum by RPR non-reactive non-reactive RPR (DX) W/refl Titer and Confirmatory Testing [facility]) ID Date Data Source [id number] 07/25/2021 12:00:00 AM EDT [facility]) Name Value Range Interpretation Code Description Data Rosalinda rce(s) Supporting Document(s) Chlamydia trachomatis rRNA [Presence] in Unspecified specimen by Probe and target amplification method detected not detected Abnormal (ap plies to non- numeric results) Chlamydia Trachomatis RNA, Tma, Urogenital [place] ([facility]) Neisseria gonorrhoeae rRNA [Presence] in Unspecified specimen by Probe and target amplification method not detected not detected Neis seria Gonorrhoeae RNA, Tma, Urogenital [place] ([facility]) Trichomonas vaginalis rRNA [Presence] in Unspecified specimen by Probe and target amplification method not detected not detected sure swab(R) Trichomonas Vaginalis RNA, Ql, Tma [place] ([facility]) Mycoplasma genitalium DNA [Presence] in Unspecified specimen by Probe and target amplification method not detected not detected Mycoplasma Genitalium, Rrna, Tma [place] ([facility]) Service comment 05 see note Assay Details ATH [facility]) ID Date Data Source [id number] 07/25/2021 12:00:00 AM EDT [facility]) Name Value Range Interpretation Code Description Data Rosalinda rce(s) Supporting Document(s) Hepatitis C virus Ab Signal/Cutoff in Serum or Plasma by Imm unoassay 0.02 ratio <1.00 Index [place] ([facility]) Hepatitis C virus Ab [Presence] in Serum or Plasma by Immuno assay nonreactive nonreactive Hepatitis C Antibody [place] ([facility]) HIV 1+2 Ab+HIV1 p24 Ag [Presence] in Serum or Plasma b y Immunoassay non-reactive non-reactive HIV Ag/Ab, 4TH Gen [place] ([facility]) ID Date Data Source [id number] 03/27/2021 07:57:00 PM EDT [place] ([facility]) Name Value Range Interpretation Code Description Data Rosalinda rce(s) Supporting Document(s) HIV 1&2 screen centaur negative negative HIV 1&2 Scree n Centaur [place] ([facility]) ID Date Data Source [id number] 03/27/2021 07:57:00 PM EDT [facility]) Name Value Range Interpretation Code Description Data Rosalinda rce(s) Supporting Document(s) syphilis nonreactive nonreactive Syphilis [place] ([facility]) ID Date Data Source [id number] 03/27/2021 07:57:00 PM EDT [facility]) Name Value Range Interpretation Code Description Data Rosalinda rce(s) Supporting Document(s) hepatitis B surface antibody positive positive Hepatit is B Surface Antibody [facility]) ID Date Data Source [id number] 03/27/2021 07:57:00 PM EDT [facility]) Name Value Range Interpretation Code Description Data Rosalinda rce(s) Supporting Document(s) hepatitis B surface antigen negative negative Hepatiti s B Surface Antigen [facility]) ID Date Data Source [id number] 03/27/2021 07:57:00 PM EDT [facility]) Name Value Range Interpretation Code Description Data Rosalinda rce(s) Supporting Document(s) hepatitis C virus victor m index 0.0 index <0.8 Hepatiti s C Virus Victor M Index [place] ([facility]) ID Date Data Source [id number] 03/27/2021 07:57:00 PM EDT [facility]) Name Value Range Interpretation Code Description Data Rosalinda rce(s) Supporting Document(s) chlamydia DNA amplification negative negative Chlamydi a DNA Amplification [place] ([facility]) trichomonas vaginalis (amp) not detected negative Tricho monas Vaginalis (Amp) [place] ([facility]) GC DNA amplification negative negative GC DNA Amplific ation [place] ([facility]) ID Date Data Source [id number] 03/27/2021 07:57:00 PM EDT [place] ([facility]) Name Value Range Interpretation Code Description Data Rosalinda rce(s) Supporting Document(s) appearance, urine rfx clear clear Appearance, Ur ine Rfx [place] ([facility]) pH,urine rfx 6.0 units 5.0-9.0 pH,urine Rfx [place] ([facility]) color, urine rfx yellow yellow Color, Urine Rfx [place] ([facility]) protein, urine auto rfx negative negative Protein, Uri ne Auto Rfx [place] ([facility]) specific gravity ur auto rfx 1.002-1.035 Specif ic [place] Ur Auto Rfx [place] ([facility]) glucose, urine (UA) auto rfx negative negative Glucose , Urine (UA) Auto Rfx [place] ([facility]) ketone, urine auto rfx negative negative Ketone, Urine Auto Rfx [place] ([facility]) urobilinogen, urine auto rfx 2.0 mg/dL 0.0-2.0 Above high n ormal Urobilinogen, Urine Auto Rfx [place] ([facility]) bilirubin, urine auto rfx negative negative Bilirubin, Urine Auto Rfx [place] ([facility]) nitrite, urine auto rfx negative negative Nitrite, Uri ne Auto Rfx [place] ([facility]) blood, urine blood rfx negative negative Blood, Urine Blood Rfx [place] ([facility]) leukocyte esterase ur auto rfx negative negative Leukocyte Esterase Ur Auto Rfx [place] ([facility]) bacteria, urine auto rfx negative negative Bacteria, U rine Auto Rfx [place] ([facility]) RBC, urine auto rfx 0 /hpf 0-3 RBC, Urine Auto Rfx [place] ([facility]) WBC, urine auto rfx 0 /hpf 0-3 WBC, Urine Auto Rfx [place] ([facility]) mucus, urine rfx small negative Mucus, Urine Rfx [place] ([facility]) squam epithelial cell ur aurfx 0 /hpf 0-6 Squam Epithelial Cell Ur Aurfx [place] ([facility]) hyaline cast, urine auto rfx 0 /lpf 0-1 Hyaline Cast, Urine Auto Rfx [place] ([facility]) ID Date Data Source [id number] 03/27/2021 07:57:00 PM EDT [place] ([facility]) Name Value Range Interpretation Code Description Data Rosalinda rce(s) Supporting Document(s) HIV 1&2 screen centaur negative negative HIV 1&2 Scree n Centaur [place] ([facility]) ID Date Data Source [id number] 03/27/2021 07:57:00 PM EDT [place] ([facility]) Name Value Range Interpretation Code Description Data Rosalinda rce(s) Supporting Document(s) syphilis nonreactive nonreactive Syphilis [place] ([facility]) ID Date Data Source [id number] 03/27/2021 07:57:00 PM EDT [place] ([facility]) Name Value Range Interpretation Code Description Data Rosalinda rce(s) Supporting Document(s) hepatitis B surface antibody positive positive Hepatit is B Surface Antibody [place] ([facility]) ID Date Data Source [id number] 03/27/2021 07:57:00 PM EDT [place] ([facility]) Name Value Range Interpretation Code Description Data Rosalinda rce(s) Supporting Document(s) hepatitis B surface antigen negative negative Hepatiti s B Surface Antigen [facility]) ID Date Data Source [id number] 03/27/2021 07:57:00 PM EDT [place] ([facility]) Name Value Range Interpretation Code Description Data Rosalinda rce(s) Supporting Document(s) hepatitis C virus victor m index 0.0 index <0.8 Hepatiti s C Virus Victor M Index [facility]) ID Date Data Source [id number] 03/27/2021 07:57:00 PM EDT [facility]) Name Value Range Interpretation Code Description Data Rosalinda rce(s) Supporting Document(s) chlamydia DNA amplification negative negative Chlamydi a DNA Amplification [place] ([facility]) GC DNA amplification negative negative GC DNA Amplific ation [place] ([facility]) trichomonas vaginalis (amp) not detected negative Tricho monas Vaginalis (Amp) [place] ([facility]) ID Date Data Source [id number] 03/27/2021 07:57:00 PM EDT [place] ([facility]) Name Value Range Interpretation Code Description Data Rosalinda rce(s) Supporting Document(s) appearance, urine rfx clear clear Appearance, Ur ine Rfx [place] ([facility]) color, urine rfx yellow yellow Color, Urine Rfx [place] ([facility]) pH,urine rfx 6.0 units 5.0-9.0 pH,urine Rfx [place] ([facility]) specific gravity ur auto rfx 1.002-1.035 Specif ic [place] Ur Auto Rfx [place] ([facility]) glucose, urine (UA) auto rfx negative negative Glucose , Urine (UA) Auto Rfx [place] ([facility]) protein, urine auto rfx negative negative Protein, Uri ne Auto Rfx [place] ([facility]) urobilinogen, urine auto rfx 2.0 mg/dL 0.0-2.0 Above high n ormal Urobilinogen, Urine Auto Rfx [place] ([facility]) ketone, urine auto rfx negative negative Ketone, Urine Auto Rfx [place] ([facility]) bilirubin, urine auto rfx negative negative Bilirubin, Urine Auto Rfx [place] ([facility]) nitrite, urine auto rfx negative negative Nitrite, Uri ne Auto Rfx [place] ([facility]) blood, urine blood rfx negative negative Blood, Urine Blood Rfx [place] ([facility] [facility]) leukocyte esterase ur auto rfx negative negative Leukocyte Esterase Ur Auto Rfx [place] ([facility]) WBC, urine auto rfx 0 /hpf 0-3 WBC, Urine Auto Rfx [place] ([facility]) RBC, urine auto rfx 0 /hpf 0-3 RBC, Urine Auto Rfx [place] ([facility]) squam epithelial cell ur aurfx 0 /hpf 0-6 Squam Epithelial Cell Ur Aurfx [place] ([facility]) bacteria, urine auto rfx negative negative Bacteria, U rine Auto Rfx [place] ([facility]) mucus, urine rfx small negative Mucus, Urine Rfx AT [facility] ([facility]) hyaline cast, urine auto rfx 0 /lpf 0-1 Hyaline Cast, Urine Auto Rfx [place] ([facility]) ID Date Data Source [id number] 02/14/2021 06:12:00 PM EDT [place] ([facility]) Name Value Range Interpretation Code Description Data Rosalinda rce(s) Supporting Document(s) chlamydia DNA probe negative negative Chlamydia DNA Pr obe [place] ([facility]) GC DNA probe negative negative GC DNA Probe [place] (No [facility]) ID Date Data Source [id number] 02/14/2021 06:12:00 PM EDT [place] ([facility]) Name Value Range Interpretation Code Description Data Rosalinda rce(s) Supporting Document(s) chlamydia DNA probe negative negative Chlamydia DNA Pr obe [place] ([facility]) GC DNA probe negative negative GC DNA Probe [place] ([facility]) ID Date Data Source [id number] 02/14/2021 04:43:00 PM EDT [place] ([facility]) Name Value Range Interpretation Code Description Data Rosalinda rce(s) Supporting Document(s) hepatitis B core antibody IgG negative negative Hepati tis B Core Antibody IgG [place] ([facility]) ID Date Data Source [id number] 02/14/2021 04:43:00 PM EDT [place] ([facility]) Name Value Range Interpretation Code Description Data Rosalinda rce(s) Supporting Document(s) hsv type I IgG specific <0.91 0.00-0.90 Hsv Type I I gG Specific [place] ([facility]) hsv type II IgG specific 14.80 index 0.00-0.90 Above high zoe l Hsv Type II IgG Specific [place] ([facility]) ID Date Data Source [id number] 02/14/2021 04:43:00 PM EDT [place] ([facility]) Name Value Range Interpretation Code Description Data Rosalinda rce(s) Supporting Document(s) HIV 1&2 screen centaur negative negative HIV 1&2 Scree n Centaur [place] ([facility]) ID Date Data Source [id number] 02/14/2021 04:43:00 PM EDT [facility]) Name Value Range Interpretation Code Description Data Rosalinda rce(s) Supporting Document(s) syphilis nonreactive nonreactive Syphilis [place] ([facility]) ID Date Data Source [id number] 02/14/2021 04:43:00 PM EDT [place] ([facility]) Name Value Range Interpretation Code Description Data Rosalinda rce(s) Supporting Document(s) hepatitis B surface antibody positive positive Hepatit is B Surface Antibody [place] ([facility]) ID Date Data Source [id number] 02/14/2021 04:43:00 PM EDT [place] ([facility]) Name Value Range Interpretation Code Description Data Rosalinda rce(s) Supporting Document(s) hepatitis B surface antigen negative negative Hepatiti s B Surface Antigen [place] ([facility]) ID Date Data Source [id number] 02/14/2021 04:43:00 PM EDT [place] ([facility]) Name Value Range Interpretation Code Description Data Rosalinda rce(s) Supporting Document(s) hepatitis C virus victor m index 0.1 index <0.8 Hepatiti s C Virus Victor M Index [place] ([facility]) ID Date Data Source [id number] 02/14/2021 04:43:00 PM EDT [place] ([facility]) Name Value Range Interpretation Code Description Data Rosalinda rce(s) Supporting Document(s) white blood count 10.3 10 4.0-10.0 Above high normal White Blood Count [place] ([facility]) hemoglobin 15.4 g/dL 13.5-17.5 Hemoglobin [place] ([facility]) red blood count 5.09 10 4.30-6.10 Red Blood Count [place] ([facility]) hematocrit 45.8 % 42.0-52.0 Hematocrit [place] ([facility]) mean corpuscular hemoglobin 30.3 pg 27.0-33.0 Mean Cor puscular Hemoglobin [place] ([facility]) mean corpuscular volume 90.0 fL 80.0-96.0 Mean Corpusc ular Volume [place] ([facility]) mean corpuscular HGB conc 33.6 g/dL 32.0-36.5 Mean Corpu scular HGB Conc [place] ([facility]) platelet count, automated 281 10 150-450 Platelet C ount, Automated [place] ([facility]) red cell distribution width 11.6 % 11.5-14.5 Red Cell Distribution Width [place] ([facility]) neutrophils % 76.0 % 36.0-66.0 Above high normal Neutrophils % [place] ([facility]) lymph % 18.9 % 24.0-44.0 Below low normal Lymph % [place] ( [facility]) mono % 4.0 % 2.0-8.0 Cross % [place] ([facility]) eos % 0.3 % 0.0-3.0 Eos % [place] ([facility]) baso % 0.4 % 0.0-1.0 Baso % [place] ([facility]) immature granulocyte % 0.4 % 0-3.0 Immature Gran ulocyte % [place] ([facility]) nucleated red blood cell % 0.0 % 0-0 Nucleated Red Blood Cell % [place] ([facility]) lymph # 2.0 10 1.5-5.0 Lymph # [place] ([facility]) mono # 0.4 10 0.0-0.8 Cross # [place] ([facility]) neutrophils # 7.8 10 1.5-8.5 Neutrophils # [place] ( [facility]) eos # 0.0 10 0.0-0.5 Eos # [place] ([facility]) baso # 0.0 10 0.0-0.2 Baso # [place] ([facility]) ID Date Data Source [id number] 02/14/2021 04:43:00 PM EDT [place] ([facility]) Name Value Range Interpretation Code Description Data Rosalinda rce(s) Supporting Document(s) hepatitis B core antibody IgG negative negative Hepati tis B Core Antibody IgG [place] ([facility]) ID Date Data Source [id number] 02/14/2021 04:43:00 PM EDT [place] ([facility]) Name Value Range Interpretation Code Description Data Rosalinda rce(s) Supporting Document(s) hsv type I IgG specific <0.91 0.00-0.90 Hsv Type I I gG Specific [place] ([facility]) hsv type II IgG specific 14.80 index 0.00-0.90 Above high zoe l Hsv Type II IgG Specific [place] ([facility]) ID Date Data Source [id number] 02/14/2021 04:43:00 PM EDT [place] ([facility]) Name Value Range Interpretation Code Description Data Rosalinda rce(s) Supporting Document(s) HIV 1&2 screen centaur negative negative HIV 1&2 Scree n Centaur [place] ([facility]) ID Date Data Source [id number] 02/14/2021 04:43:00 PM EDT [place] ([facility]) Name Value Range Interpretation Code Description Data Rosalinda rce(s) Supporting Document(s) syphilis nonreactive nonreactive Syphilis [place] ([facility]) ID Date Data Source [id number] 02/14/2021 04:43:00 PM EDT [place] ([facility]) Name Value Range Interpretation Code Description Data Rosalinda rce(s) Supporting Document(s) hepatitis B surface antibody positive positive Hepatit is B Surface Antibody [place] ([facility]) ID Date Data Source [id number] 02/14/2021 04:43:00 PM EDT [place] ([facility]) Name Value Range Interpretation Code Description Data Rosalinda rce(s) Supporting Document(s) hepatitis B surface antigen negative negative Hepatiti s B Surface Antigen [facility]) ID Date Data Source [id number] 02/14/2021 04:43:00 PM EDT [place] ([facility]) Name Value Range Interpretation Code Description Data Rosalinda rce(s) Supporting Document(s) hepatitis C virus victor m index 0.1 index <0.8 Hepatiti s C Virus Victor M Index [place] ([facility]) ID Date Data Source [id number] 02/14/2021 04:43:00 PM EDT [place] ([facility]) Name Value Range Interpretation Code Description Data Rosalinda rce(s) Supporting Document(s) white blood count 10.3 10 4.0-10.0 Above high normal White Blood Count [place] ([facility]) red blood count 5.09 10 4.30-6.10 Red Blood Count [place] ([facility]) hemoglobin 15.4 g/dL 13.5-17.5 Hemoglobin [place] ([facility]) hematocrit 45.8 % 42.0-52.0 Hematocrit [place] ([facility]) mean corpuscular hemoglobin 30.3 pg 27.0-33.0 Mean Cor puscular Hemoglobin [place] ([facility]) mean corpuscular volume 90.0 fL 80.0-96.0 Mean Corpusc ular Volume [place] ([facility]) mean corpuscular HGB conc 33.6 g/dL 32.0-36.5 Mean Corpu scular HGB Conc [place] ([facility]) platelet count, automated 281 10 150-450 Platelet C ount, Automated [place] ([facility]) red cell distribution width 11.6 % 11.5-14.5 Red Cell Distribution Width [place] ([facility]) neutrophils % 76.0 % 36.0-66.0 Above high normal Neutrophils % [place] ([facility]) lymph % 18.9 % 24.0-44.0 Below low normal Lymph % [place] ( [facility]) mono % 4.0 % 2.0-8.0 Cross % [place] ([facility]) eos % 0.3 % 0.0-3.0 Eos % [place] ([facility]) baso % 0.4 % 0.0-1.0 Baso % [place] ([facility]) immature granulocyte % 0.4 % 0-3.0 Immature Gran ulocyte % [place] ([facility]) neutrophils # 7.8 10 1.5-8.5 Neutrophils # [place] ( [facility]) lymph # 2.0 10 1.5-5.0 Lymph # [place] ([facility]) nucleated red blood cell % 0.0 % 0-0 Nucleated Red Blood Cell % [place] ([facility]) mono # 0.4 10 0.0-0.8 Cross # [place] ([facility]) baso # 0.0 10 0.0-0.2 Baso # [place] ([facility]) eos # 0.0 10 0.0-0.5 Eos # [place] ([facility]) ID Date Data Source [id number] 01/01/2021 03:07:00 PM EDT [facility]) Name Value Range Interpretation Code Description Data Rosalinda rce(s) Supporting Document(s) chlamydia DNA amplification positive negative Above high no rmal Chlamydia DNA Amplification [place] ([facility]) trichomonas vaginalis (amp) positive negative Above high no rmal Trichomonas Vaginalis (Amp) [place] ([facility]) GC DNA amplification positive negative Above high normal GC DNA A mplification [facility]) ID Date Data Source [id number] 01/01/2021 03:07:00 PM EDT [facility]) Name Value Range Interpretation Code Description Data Rosalinda rce(s) Supporting Document(s) trichomonas vaginalis (amp) positive negative Above high no rmal Trichomonas Vaginalis (Amp) [place] ([facility]) GC DNA amplification positive negative Above high normal GC DNA A mplification [facility]) chlamydia DNA amplification positive negative Above high no rmal Chlamydia DNA Amplification [place] ([facility]) ID Date Data Source [id number] 01/01/2021 03:07:00 PM EDT [place] ([facility]) Name Value Range Interpretation Code Description Data Rosalinda rce(s) Supporting Document(s) chlamydia DNA amplification positive negative Above high no rmal Chlamydia DNA Amplification [place] ([facility]) GC DNA amplification positive negative Above high normal GC DNA A mplification [place] ([facility]) trichomonas vaginalis (amp) positive negative Above high no rmal Trichomonas Vaginalis (Amp) [place] ([facility]) ID Date Data Source [id number] 12/27/2020 10:00:00 AM EDT [place] ([facility]) Name Value Range Interpretation Code Description Data Rosalinda rce(s) Supporting Document(s) chlamydia DNA probe negative negative Chlamydia DNA Pr obe [place] ([facility]) GC DNA probe negative negative GC DNA Probe [place] ([facility]) ID Date Data Source [id number] 12/27/2020 10:00:00 AM EDT [facility]) Name Value Range Interpretation Code Description Data Rosalinda rce(s) Supporting Document(s) chlamydia DNA probe negative negative Chlamydia DNA Pr obe [place] ([facility]) GC DNA probe negative negative GC DNA Probe [place] ([facility]) ID Date Data Source [id number] 12/27/2020 10:00:00 AM EDT [facility]) Name Value Range Interpretation Code Description Data Rosalinda rce(s) Supporting Document(s) GC DNA probe negative negative GC DNA Probe [place] (No [facility]) chlamydia DNA probe negative negative Chlamydia DNA Pr obe [place] ([facility]) ID Date Data Source [id number] 12/27/2020 10:00:00 AM EDT [facility]) Name Value Range Interpretation Code Description Data Rosalinda rce(s) Supporting Document(s) GC DNA probe negative negative GC DNA Probe [place] ([facility]) chlamydia DNA probe negative negative Chlamydia DNA Pr obe [place] ([facility]) ID Date Data Source [id number] 12/27/2020 10:00:00 AM EDT [place] ([facility]) Name Value Range Interpretation Code Description Data Rosalinda rce(s) Supporting Document(s) chlamydia DNA probe negative negative Chlamydia DNA Pr obe [place] ([facility]) GC DNA probe negative negative GC DNA Probe [place] ([facility]) ID Date Data Source [id number] 12/27/2020 10:00:00 AM EDT [facility]) Name Value Range Interpretation Code Description Data Rosalinda rce(s) Supporting Document(s) GC DNA probe negative negative GC DNA Probe [place] ([facility]) chlamydia DNA probe negative negative Chlamydia DNA Pr obe [place] ([facility]) ID Date Data Source [id number] 12/27/2020 09:08:00 AM EDT [facility]) Name Value Range Interpretation Code Description Data Rosalinda rce(s) Supporting Document(s) HIV 1&2 screen centaur negative negative HIV 1&2 Scree n Centaur [place] ([facility]) ID Date Data Source [id number] 12/27/2020 09:08:00 AM EDT [facility]) Name Value Range Interpretation Code Description Data Rosalinda rce(s) Supporting Document(s) syphilis nonreactive nonreactive Syphilis [place] ([facility]) ID Date Data Source [id number] 12/27/2020 09:08:00 AM EDT [facility]) Name Value Range Interpretation Code Description Data Rosalinda rce(s) Supporting Document(s) thyroid stimulating hormone 1.860 uIU/mL 0.358-3.740 Thyroid Stimulating Hormone [place] ([facility]) ID Date Data Source [id number] 12/27/2020 09:08:00 AM EDT [place] ([facility]) Name Value Range Interpretation Code Description Data Rosalinda rce(s) Supporting Document(s) triglycerides level 87 mg/dL <150 Triglycerides Le dilma [place] ([facility]) cholesterol level 174 mg/dL <200 Cholesterol Level [place] ([facility]) non-HDL-C 130 mg/dL Non-hdl-c [place] ([facility]) Cholesterol in LDL [Mass/volume] in Serum or Plasma 113 mg/dL <100 Above high normal LDL Cholesterol [place] ([facility]) HDL cholesterol 44 mg/dL >40 HDL Cholesterol [place] [place] ([facility]) cholesterol risk ratio <5 Cholesterol R isk Ratio [place] ([facility]) ID Date Data Source [id number] 12/27/2020 09:08:00 AM EDT [place] ([facility]) Name Value Range Interpretation Code Description Data Rosalinda rce(s) Supporting Document(s) hepatitis C virus victor m index < 0.0 <0.8 Hepatiti s C Virus Victor M Index [place] ([facility]) ID Date Data Source [id number] 12/27/2020 09:08:00 AM EDT [place] ([facility]) Name Value Range Interpretation Code Description Data Rosalinda rce(s) Supporting Document(s) glucose, fasting 78 mg/dL 70-100 Glucose, Fasting AT [facility] ([facility]) creatinine for GFR 1.00 mg/dL 0.70-1.30 Creatinine for GF R [place] ([facility]) glomerular filtration rate > 60.0 >60 Glomerula r Filtration Rate [place] ([facility]) sodium level 141 mEq/L 136-145 Sodium Level [place] ([facility]) blood urea nitrogen 12 mg/dL 7-18 Blood Urea Nitro gen [place] ([facility]) carbon dioxide level 29 mEq/L 21-32 Carbon Dioxide Level [place] ([facility]) anion gap 6 mEq/L 8-16 Below low normal Anion Gap [place] ( [facility]) chloride level 106 mEq/L 98-107 Chloride Level [place] ([facility]) potassium serum 4.3 mEq/L 3.5-5.1 Potassium Serum [place] [place] ([facility]) calcium level 9.4 mg/dL 8.5-10.1 Calcium Level [place] ( [facility]) alkaline phosphatase 68 U/L 45-117 Alkaline Phosph atase [place] ([facility]) AST/SGOT 7 U/L 7-37 AST/SGOT [place] ([facility]) ALT/SGPT 14 U/L 12-78 ALT/SGPT [place] ([facility]) albumin 4.2 gm/dL 3.2-5.2 Albumin [place] ([facility]) albumin/globulin ratio Albumin/globu siva Ratio [place] ([facility]) total protein 7.8 gm/dL 6.4-8.2 Total Protein [place] ( [facility]) bilirubin,total 0.6 mg/dL 0.2-1.0 Bilirubin,total [facility] [place] ([facility]) ID Date Data Source [id number] 12/27/2020 09:08:00 AM EDT [place] ([facility]) Name Value Range Interpretation Code Description Data Rosalinda rce(s) Supporting Document(s) white blood count 7.1 10 4.0-10.0 White Blood Count [place] ([facility]) red blood count 5.15 10 4.30-6.10 Red Blood Count [facility] ([facility]) hemoglobin 15.8 g/dL 13.5-17.5 Hemoglobin [place] ([facility]) mean corpuscular volume 92.0 fL 80.0-96.0 Mean Corpusc ular Volume [place] ([facility]) hematocrit 47.4 % 42.0-52.0 Hematocrit [place] ([facility]) mean corpuscular hemoglobin 30.7 pg 27.0-33.0 Mean Cor puscular Hemoglobin [place] ([facility]) mean corpuscular HGB conc 33.3 g/dL 32.0-36.5 Mean Corpu scular HGB Conc [place] ([facility]) red cell distribution width 12.2 % 11.5-14.5 Red Cell Distribution Width [place] ([facility]) platelet count, automated 294 10 150-450 Platelet C ount, Automated [place] ([facility]) neutrophils % 63.5 % 36.0-66.0 Neutrophils % [place] ( [facility]) lymph % 30.0 % 24.0-44.0 Lymph % [place] ([facility]) mono % 4.8 % 2.0-8.0 Cross % [place] ([facility]) eos % 0.7 % 0.0-3.0 Eos % [place] ([facility]) baso % 0.7 % 0.0-1.0 Baso % [place] ([facility]) immature granulocyte % 0.3 % 0-3.0 Immature Gran ulocyte % [place] ([facility]) nucleated red blood cell % 0.0 % 0-0 Nucleated Red Blood Cell % [place] ([facility]) lymph # 2.1 10 1.5-5.0 Lymph # [place] ([facility]) mono # 0.3 10 0.0-0.8 Cross # [place] ([facility]) neutrophils # 4.5 10 1.5-8.5 Neutrophils # [place] ( [facility]) baso # 0.1 10 0.0-0.2 Baso # [place] ([facility]) eos # 0.1 10 0.0-0.5 Eos # [place] ([facility]) ID Date Data Source [id number] 12/27/2020 09:08:00 AM EDT [place] ([facility]) Name Value Range Interpretation Code Description Data Rosalinda rce(s) Supporting Document(s) HIV 1&2 screen centaur negative negative HIV 1&2 Scree n Centaur [place] ([facility]) ID Date Data Source [id number] 12/27/2020 09:08:00 AM EDT [place] ([facility]) Name Value Range Interpretation Code Description Data Rosalinda rce(s) Supporting Document(s) syphilis nonreactive nonreactive Syphilis [place] ([facility]) ID Date Data Source [id number] 12/27/2020 09:08:00 AM EDT [place] ([facility]) Name Value Range Interpretation Code Description Data Rosalinda rce(s) Supporting Document(s) thyroid stimulating hormone 1.860 uIU/mL 0.358-3.740 Thyroid Stimulating Hormone [place] ([facility]) ID Date Data Source [id number] 12/27/2020 09:08:00 AM EDT [place] ([facility]) Name Value Range Interpretation Code Description Data Rosalinda rce(s) Supporting Document(s) HDL cholesterol 44 mg/dL >40 HDL Cholesterol AT[facility] NA ([facility]) triglycerides level 87 mg/dL <150 Triglycerides Le dilma [place] ([facility]) cholesterol level 174 mg/dL <200 Cholesterol Level [place] ([facility]) Cholesterol in LDL [Mass/volume] in Serum or Plasma 113 mg/dL <100 Above high normal LDL Cholesterol [place] ([facility]) cholesterol risk ratio <5 Cholesterol R isk Ratio [place] ([facility]) non-HDL-C 130 mg/dL Non-hdl-c [place] ([facility]) ID Date Data Source [id number] 12/27/2020 09:08:00 AM EDT [place] ([facility]) Name Value Range Interpretation Code Description Data Rosalinda rce(s) Supporting Document(s) hepatitis C virus victor m index < 0.0 <0.8 Hepatiti s C Virus Victor M Index [place] ([facility]) ID Date Data Source [id number] 12/27/2020 09:08:00 AM EDT [place] ([facility]) Name Value Range Interpretation Code Description Data Rosalinda rce(s) Supporting Document(s) blood urea nitrogen 12 mg/dL 7-18 Blood Urea Nitro gen [place] ([facility]) creatinine for GFR 1.00 mg/dL 0.70-1.30 Creatinine for GF R [place] ([facility]) glucose, fasting 78 mg/dL 70-100 Glucose, Fasting AT [facility]) sodium level 141 mEq/L 136-145 Sodium Level [place] ([facility]) potassium serum 4.3 mEq/L 3.5-5.1 Potassium Serum ATHE ([facility]) glomerular filtration rate > 60.0 >60 Glomerula r Filtration Rate [place] ([facility]) carbon dioxide level 29 mEq/L 21-32 Carbon Dioxide Level [place] ([facility]) anion gap 6 mEq/L 8-16 Below low normal Anion Gap [place] ( [facility]) chloride level 106 mEq/L 98-107 Chloride Level [place] ([facility]) ALT/SGPT 14 U/L 12-78 ALT/SGPT [place] ([facility]) calcium level 9.4 mg/dL 8.5-10.1 Calcium Level [place] ( [facility]) AST/SGOT 7 U/L 7-37 AST/SGOT [place] ([facility]) alkaline phosphatase 68 U/L 45-117 Alkaline Phosph atase [place] ([facility]) bilirubin,total 0.6 mg/dL 0.2-1.0 Bilirubin,total ATHE ([facility]) albumin 4.2 gm/dL 3.2-5.2 Albumin [place] ([facility]) total protein 7.8 gm/dL 6.4-8.2 Total Protein [place] ( [facility]) albumin/globulin ratio Albumin/globu siva Ratio [place] ([facility]) ID Date Data Source [id number] 12/27/2020 09:08:00 AM EDT [place] ([facility]) Name Value Range Interpretation Code Description Data Rosalinda rce(s) Supporting Document(s) white blood count 7.1 10 4.0-10.0 White Blood Count [place] ([facility]) red blood count 5.15 10 4.30-6.10 Red Blood Count ATHE ([facility]) hemoglobin 15.8 g/dL 13.5-17.5 Hemoglobin [place] ([facility]) mean corpuscular hemoglobin 30.7 pg 27.0-33.0 Mean Cor puscular Hemoglobin [place] ([facility]) mean corpuscular volume 92.0 fL 80.0-96.0 Mean Corpusc ular Volume [place] ([facility]) hematocrit 47.4 % 42.0-52.0 Hematocrit [place] ([facility]) red cell distribution width 12.2 % 11.5-14.5 Red Cell Distribution Width [place] ([facility]) mean corpuscular HGB conc 33.3 g/dL 32.0-36.5 Mean Corpu scular HGB Conc [place] ([facility]) platelet count, automated 294 10 150-450 Platelet C ount, Automated [place] ([facility]) neutrophils % 63.5 % 36.0-66.0 Neutrophils % [facility]) lymph % 30.0 % 24.0-44.0 Lymph % [place] ([facility]) mono % 4.8 % 2.0-8.0 Cross % [place] ([facility]) eos % 0.7 % 0.0-3.0 Eos % [place] ([facility]) immature granulocyte % 0.3 % 0-3.0 Immature Gran ulocyte % [place] ([facility]) nucleated red blood cell % 0.0 % 0-0 Nucleated Red Blood Cell % [place] ([facility]) neutrophils # 4.5 10 1.5-8.5 Neutrophils # [place] ( [facility]) baso % 0.7 % 0.0-1.0 Baso % [place] ([facility]) lymph # 2.1 10 1.5-5.0 Lymph # [place] ([facility]) eos # 0.1 10 0.0-0.5 Eos # [place] ([facility]) baso # 0.1 10 0.0-0.2 Baso # [place] ([facility]) mono # 0.3 10 0.0-0.8 Cross # [place] ([facility]) ID Date Data Source [id number] 12/27/2020 09:08:00 AM EDT [place] ([facility]) Name Value Range Interpretation Code Description Data Rosalinda rce(s) Supporting Document(s) HIV 1&2 screen [facility] negative negative HIV 1&2 Scree n [place] ([facility]) ID Date Data Source [id number] 12/27/2020 09:08:00 AM EDT [facility]) Name Value Range Interpretation Code Description Data Rosalinda rce(s) Supporting Document(s) syphilis nonreactive nonreactive Syphilis [place] ([facility]) ID Date Data Source [id number] 12/27/2020 09:08:00 AM EDT [place] ([facility]) Name Value Range Interpretation Code Description Data Rosalinda rce(s) Supporting Document(s) thyroid stimulating hormone 1.860 uIU/mL 0.358-3.740 Thyroid Stimulating Hormone [place] ([facility]) ID Date Data Source [id number] 12/27/2020 09:08:00 [facility] Name Value Range Interpretation Code Description Data Rosalinda rce(s) Supporting Document(s) HDL cholesterol 44 mg/dL >40 HDL Cholesterol AT[place] ([facility]) cholesterol level 174 mg/dL <200 Cholesterol Level [place] ([facility]) Cholesterol in LDL [Mass/volume] in Serum or Plasma 113 mg/dL <100 Above high normal LDL Cholesterol [place] ([facility]) triglycerides level 87 mg/dL <150 Triglycerides Le dilma [place] ([facility]) non-HDL-C 130 mg/dL Non-hdl-c [place] ([facility]) cholesterol risk ratio <5 Cholesterol R isk Ratio [place] ([facility]) ID Date Data Source [id number] 12/27/2020 09:08:00 AM EDT [place] ([facility]) Name Value Range Interpretation Code Description Data Rosalinda rce(s) Supporting Document(s) hepatitis C virus victor m index < 0.0 <0.8 Hepatiti s C Virus Victor M Index [place] ([facility]) ID Date Data Source [id number] 12/27/2020 09:08:00 AM EDT [place] ([facility]) Name Value Range Interpretation Code Description Data Rosalinda rce(s) Supporting Document(s) glucose, fasting 78 mg/dL 70-100 Glucose, Fasting AT [place] [facility]) glomerular filtration rate > 60.0 >60 Glomerula r Filtration Rate [place] ([facility]) blood urea nitrogen 12 mg/dL 7-18 Blood Urea Nitro gen [place] ([facility]) creatinine for GFR 1.00 mg/dL 0.70-1.30 Creatinine for GF R [place] ([facility]) potassium serum 4.3 mEq/L 3.5-5.1 Potassium Serum ATHE NA ([facility]) chloride level 106 mEq/L 98-107 Chloride Level [place] ([facility]) sodium level 141 mEq/L 136-145 Sodium Level [place] ([facility]) calcium level 9.4 mg/dL 8.5-10.1 Calcium Level [place] ( [facility]) AST/SGOT 7 U/L 7-37 AST/SGOT [place] ([facility]) carbon dioxide level 29 mEq/L 21-32 Carbon Dioxide Level [place] ([facility]) anion gap 6 mEq/L 8-16 Below low normal Anion Gap [place] ( [facility]) ALT/SGPT 14 U/L 12-78 ALT/SGPT [place] ([facility]) alkaline phosphatase 68 U/L 45-117 Alkaline Phosph atase [place] ([facility]) bilirubin,total 0.6 mg/dL 0.2-1.0 Bilirubin,total ATHE NA ([facility]) total protein 7.8 gm/dL 6.4-8.2 Total Protein [place] ( [facility]) albumin 4.2 gm/dL 3.2-5.2 Albumin [place] ([facility]) albumin/globulin ratio Albumin/globu siva Ratio [place] ([facility]) ID Date Data Source [id number] 12/27/2020 09:08:00 AM EDT [place] ([facility]) Name Value Range Interpretation Code Description Data Rosalinda rce(s) Supporting Document(s) white blood count 7.1 10 4.0-10.0 White Blood Count [place] ([facility]) red blood count 5.15 10 4.30-6.10 Red Blood Count [facility] ([facility]) mean corpuscular volume 92.0 fL 80.0-96.0 Mean Corpusc ular Volume [place] ([facility]) hemoglobin 15.8 g/dL 13.5-17.5 Hemoglobin [place] ([facility]) hematocrit 47.4 % 42.0-52.0 Hematocrit [place] ([facility]) mean corpuscular hemoglobin 30.7 pg 27.0-33.0 Mean Cor puscular Hemoglobin [place] ([facility]) mean corpuscular HGB conc 33.3 g/dL 32.0-36.5 Mean Corpu scular HGB Conc [place] ([facility]) red cell distribution width 12.2 % 11.5-14.5 Red Cell Distribution Width [place] ([facility]) platelet count, automated 294 10 150-450 Platelet C ount, Automated [place] ([facility]) lymph % 30.0 % 24.0-44.0 Lymph % [place] ([facility]) neutrophils % 63.5 % 36.0-66.0 Neutrophils % [place] ( [facility]) immature granulocyte % 0.3 % 0-3.0 Immature Gran ulocyte % [place] ([facility]) eos % 0.7 % 0.0-3.0 Eos % [place] ([facility]) baso % 0.7 % 0.0-1.0 Baso % [place] ([facility]) mono % 4.8 % 2.0-8.0 Cross % [place] ([facility]) nucleated red blood cell % 0.0 % 0-0 Nucleated Red Blood Cell % [place] ([facility]) neutrophils # 4.5 10 1.5-8.5 Neutrophils # [place] ( [facility]) lymph # 2.1 10 1.5-5.0 Lymph # [place] ([facility]) mono # 0.3 10 0.0-0.8 Cross # [place] ([facility]) eos # 0.1 10 0.0-0.5 Eos # [place] ([facility]) baso # 0.1 10 0.0-0.2 Baso # [place] ([facility]) Procedure Social History No Information Vital Signs ID Date Data Source UNK Name Value Range Interpretation Code Description Data Source(s) Body height 68 [in_i] 68 [in_i] [place] ([facility]) Body height 68 [in_i] 68 [in_i] [place] ([facility]) Body height 68 [in_i] 68 [in_i] [place] ([facility]) Diastolic blood pressure 99 mm[Hg] 99 mm[Hg] [place] ([facility]) Body height 68 [in_i] 68 [in_i] [place] ([facility]) Body mass index (BMI) [Ratio] 24 kg/m2 24 kg/ m2 [place] ([facility]) Systolic blood pressure 154 mm[Hg] 154 mm[Hg] A [place] ([facility]) Body weight 157.8 [lb_av] 157.8 [lb_av] [place] ([facility]) Diastolic blood pressure 99 mm[Hg] 99 mm[Hg] [place] ([facility]) Body height 68 [in_i] 68 [in_i] [place] ([facility]) Body mass index (BMI) [Ratio] 23.5 kg/m2 23.5 k g/m2 [place] ([facility]) Systolic blood pressure 137 mm[Hg] 137 mm[Hg] [facility] Body weight 2470.4 [oz_av] 2470.4 [oz_av] ATHEN A ([facility]) Diastolic blood pressure 99 mm[Hg] 99 mm[Hg] [place] ([facility]) Body height 68 [in_i] 68 [in_i] [place] ([facility]) Body mass index (BMI) [Ratio] 23.5 kg/m2 23.5 k g/m2 [place] ([facility]) Systolic blood pressure 137 mm[Hg] 137 mm[Hg] [facility] Body weight 2470.4 [oz_av] 2470.4 [oz_av] ATHEN A ([facility]) Diastolic blood pressure 99 mm[Hg] 99 mm[Hg] [place] ([facility]) Body height 68 [in_i] 68 [in_i] [place] ([facility]) Body mass index (BMI) [Ratio] 23.5 kg/m2 23.5 k g/m2 [place] ([facility]) Systolic blood pressure 137 mm[Hg] 137 mm[Hg] A [place] ([facility]) Body weight 2470.4 [oz_av] 2470.4 [oz_av] ATHEN A ([facility]) Diastolic blood pressure 85 mm[Hg] 85 mm[Hg] [place] ([facility]) Body height 68 [in_i] 68 [in_i] [place] ([facility]) Body mass index (BMI) [Ratio] 23.1 kg/m2 23.1 k g/m2 [place] ([facility]) Systolic blood pressure 127 mm[Hg] 127 mm[Hg] A [facility] ([facility]) Body weight 2428.8 [oz_av] 2428.8 [oz_av] ATHEN A ([facility]) Diastolic blood pressure 85 mm[Hg] 85 mm[Hg] [place] ([facility]) Body height 68 [in_i] 68 [in_i] [place] ([facility]) Body mass index (BMI) [Ratio] 23.1 kg/m2 23.1 k g/m2 [place] ([facility]) Systolic blood pressure 127 mm[Hg] 127 mm[Hg] A [place] ([facility]) Body weight 2428.8 [oz_av] 2428.8 [oz_av] ATHEN A ([facility]) Diastolic blood pressure 85 mm[Hg] 85 mm[Hg] [place] ([facility]) Body height 68 [in_i] 68 [in_i] [place] ([facility]) Body mass index (BMI) [Ratio] 23.1 kg/m2 23.1 k g/m2 [place] ([facility]) Systolic blood pressure 127 mm[Hg] 127 mm[Hg] A [place] ([facility]) Body weight 2428.8 [oz_av] 2428.8 [oz_av] ATHEN A ([facility]) Diastolic blood pressure 85 mm[Hg] 85 mm[Hg] [place] ([facility]) Body height 68 [in_i] 68 [in_i] [place] ([facility]) Body mass index (BMI) [Ratio] 23.1 kg/m2 23.1 k g/m2 [place] ([facility]) Systolic blood pressure 127 mm[Hg] 127 mm[Hg] A [place] ([facility]) Body weight 2428.8 [oz_av] 2428.8 [oz_av] ATHEN A ([facility]) Diastolic blood pressure 89 mm[Hg] 89 mm[Hg] MEDENT ([facility]) Heart rate 97 /min 97 /min MEDSADI ([facility]) Systolic blood pressure 142 mm[Hg] 142 mm[Hg] Emily RANGEL ([facility]) Oxygen saturation in Arterial blood by Pulse oximetry 99 % 99 % [facility] ([facility]) Room Air Body temperature 98.6 [degF] 98.6 [degF] [facility] ([facility]) Body height 68 [in_i] 68 [in_i] [facility] ([facility]) 5'8" [place] body weight 154 [lb_av] 154 [lb_av] MEDEN T ([facility]) Body temperature 98.4 [degF] 98.4 [degF] [facility] ([facility]) Body height 68 [in_i] 68 [in_i] [facility] ([facility]) 5'8" Body weight 151.00 [lb_av] 151.00 [lb_av] MEDEN T ([facility]) Body mass index (BMI) [Ratio] 23.0 kg/m2 23.0 k g/m2 [facility] ([facility]) [place] body weight 154 [lb_av] 154 [lb_av] MEDEN T ([facility]) Body weight 68.494 kg 68.494 kg [facility] ([facility]) Body surface area Derived from formula 1.81 m2 1.81 m2 [facility] ([facility]) Body temperature 98.8 [degF] 98.8 [degF] [facility] ([facility]) Body height 68 [in_i] 68 [in_i] [facility] ([facility]) 5'8" Body weight 151.88 [lb_av] 151.88 [lb_av] MEDEN T ([facility]) Body mass index (BMI) [Ratio] 23.1 kg/m2 23.1 k g/m2 [facility] ([facility]) [place] body weight 154 [lb_av] 154 [lb_av] MEDEN T ([facility]) Body weight 68.900 kg 68.900 kg [facility] ([facility]) Body surface area Derived from formula 1.82 m2 1.82 m2 [facility] ([facility]) Patient Treatment Plan of Care Planned Activity Planned Date Details Description Data Source (s) Naproxen 500 MG Oral Tablet [place] ([facility]) Metronidazole 500 MG Oral Tablet [place] ([facility]) Doxycycline Monohydrate 100 MG Oral Capsule [place] ([facility]) Naproxen 500 MG Oral Tablet [place] ([facility]) Metronidazole 500 MG Oral Tablet [place] ([facility]) Doxycycline Monohydrate 100 MG Oral Capsule [place] ([facility]) Naproxen 500 MG Oral Tablet [place] ([facility]) Metronidazole 500 MG Oral Tablet [place] ([facility]) Doxycycline Monohydrate 100 MG Oral Capsule [place] ([facility]) Naproxen 500 MG Oral Tablet [place] ([facility])
[2021-08-07 08:42] LABS: BASO % 0.6 % (0.0-1.0); EOS # 0.1 10^3/uL (0.0-0.5); EOS % 1.1 % (0.0-3.0); HEMATOCRIT 43.9 % (42.0-52.0); HEMOGLOBIN 14.8 g/dl (13.5-17.5); LYMPH % 28.6 % (24.0-44.0); MEAN CORPUSCULAR HEMOGLOBIN 30.1 pg (27.0-33.0); MEAN CORPUSCULAR HGB CONC 33.7 g/dl (32.0-36.5); MEAN CORPUSCULAR VOLUME 89.4 fl (80.0-96.0); MONO # 0.3 10^3/uL (0.0-0.8); MONO % 4.5 % (2.0-8.0); NEUTROPHILS # 4.6 10^3/uL (1.5-8.5); NEUTROPHILS % 64.9 % (36.0-66.0); PLATELET COUNT, AUTOMATED 268 10^3/uL (150-450); RED BLOOD COUNT 4.91 10^6/uL (4.30-6.10); WHITE BLOOD COUNT 7.1 10^3/uL (4.0-10.0)
--- NOTE | 2021-08-07 08:44 | REP ---
INDICATION: palpitations COMPARISON: None. TECHNIQUE: PA and lateral. FINDINGS: The mediastinum and cardiac silhouette are normal. The lung avilez are clear and without acute consolidation, effusion, or pneumothorax. The skeletal structures are intact and normal. IMPRESSION: No acute cardiopulmonary process. <Electronically signed by Jung Valdez > 08/07/21 08
[2021-08-07 09:18] LABS: BLOOD UREA NITROGEN 17 MG/DL (7-18); CALCIUM LEVEL 9.1 MG/DL (8.5-10.1); CARBON DIOXIDE LEVEL 31 MEQ/L (21-32); CHLORIDE LEVEL 107 MEQ/L (98-107); CREATININE FOR GFR 0.98 MG/DL (0.70-1.30); GLOMERULAR FILTRATION RATE > 60.0 (>60); GLUCOSE, FASTING 87 MG/DL (70-100); POTASSIUM SERUM 4.5 MEQ/L (3.5-5.1); SODIUM LEVEL 139 MEQ/L (136-145)
[2021-08-07 10:00] VITALS: BP 120/87
[2021-08-07 10:00] LABS: AMPHETAMINES LEVEL URINE NEGATIVE (NEGATIVE); BARBITURATES URINE NEGATIVE (NEGATIVE); BENZODIAZEPINES URINE NEGATIVE (NEGATIVE); CANNABINOIDS URINE NEGATIVE (NEGATIVE); COCAINE METABOLITE URINE NEGATIVE (NEGATIVE); METHADONE URINE NEGATIVE (NEGATIVE); OPIATES URINE NEGATIVE (NEGATIVE); PHENCYCLIDINE URINE NEGATIVE (NEGATIVE)
--- NOTE | 2021-08-07 11:28 | ECGEPIP ---
[facility] - ED Test Date: 2021-08-07 Pat Name: ZAID VALADEZ Department: Room: - Gender: Male [place]: : 1995 Requested By: JUJU Fulton Order Number: [id number] Reading MD: Shamir Solomon Measurements Intervals Abrams Rate: 69 P: 54 IN: 152 QRS: 48 QRSD: 78 T: 37 QT: 368 QTc: 394 Interpretive Statements Normal sinus rhythm with sinus arrhythmia NONSPECIFIC T WAVE ABNORMALITY(S) SIMILAR TO 09/06/17 Electronically Signed on 08-07-2021 11:28:23 EST by Shamir Solomon
== END 2021-08-07 10:18 | disposition home or self-care (01) ==
LOC: M ED 02:46
DX: R00.2 Palpitations (principal); F17.210 Nicotine dependence, cigarettes, uncomplicated

== ENCOUNTER → 2022-02-22 | Outpatient (REF) | LOC: M PLAIMG 12:19 | PROVIDERS: ATTEND Internal Medicine | DX: Z00.00 Encounter for general adult medical examination without abnormal findings (principal) ==

== ENCOUNTER 2022-07-15 13:34 | Outpatient (RCR) | payer OTHER | END 2022-07-22 23:59 | disposition home or self-care (01) | LOC: M PT 13:34 | PROVIDERS: ATTEND Orthopaedic Surgery | DX: M25.512 Pain in left shoulder (principal); M54.2 Cervicalgia ==

== ENCOUNTER 2022-08-13 14:13 | Outpatient (RCR) | payer OTHER | END 2022-08-21 | LOC: M PT 14:13 | PROVIDERS: ATTEND Orthopaedic Surgery | DX: M25.512 Pain in left shoulder (principal) ==

== ENCOUNTER 2022-09-04 14:30 | Outpatient (RCR) | payer OTHER | END 2022-09-21 | LOC: M PT 14:30 | PROVIDERS: ATTEND Orthopaedic Surgery | DX: I69.334 Monoplegia of upper limb following cerebral infarction affecting left non-dominant side (principal) ==

== ENCOUNTER 2022-10-08 13:48 | Outpatient (RCR) | payer OTHER | END 2022-10-22 | LOC: M PT 13:48 | PROVIDERS: ATTEND Orthopaedic Surgery | DX: M25.512 Pain in left shoulder (principal); M54.2 Cervicalgia ==

== ENCOUNTER → 2023-01-20 | Outpatient (REF) | payer OTHER ==
[2023-01-20 16:41] LABS: GC DNA AMPLIFICATION NEGATIVE (NEGATIVE)
== END ==
LOC: M LAB REF 12:49
PROVIDERS: ATTEND Pediatrics
DX: Z11.3 Encounter for screening for infections with a predominantly sexual mode of transmission (principal); A64 Unspecified sexually transmitted disease

== ENCOUNTER → 2023-01-31 | Outpatient (CLI) | payer OTHER | LOC: M PLARAD 13:57 | PROVIDERS: ATTEND Nurse Practitioner Family | DX: M47.812 Spondylosis without myelopathy or radiculopathy, cervical region (principal); M50.221 Other cervical disc displacement at C4-C5 level; E04.1 Nontoxic single thyroid nodule ==

== ENCOUNTER 2024-04-15 16:56 | Emergency (ER) | payer OTHER ==
[~2024-04-15] VITALS: Ht 175.3 cm; Wt 67.9 kg
[~2024-04-15 16:56] MED LIST changes: +DOXY-323 PO; -DOXY-443 PO
[2024-04-15 17:00] VITALS: BP 164/94; TEMP 98.3; O2SAT 99
== END 2024-04-15 21:00 | disposition left against medical advice (07) ==
LOC: M ED 16:56
DX: Z53.21 Procedure and treatment not carried out due to patient leaving prior to being seen by health care provider (principal)

== ENCOUNTER → 2024-12-20 | Outpatient (CLI) | payer MEDICAID ==
[~2024-12-20] MED LIST changes: -DOXY-323 PO; +DOXY-441 PO
== END ==
LOC: M OUTALCOH 08:10
PROVIDERS: ATTEND Psychiatry & Neurology Psychiatry
DX: F15.20 Other stimulant dependence, uncomplicated (principal); F17.200 Nicotine dependence, unspecified, uncomplicated

== ENCOUNTER → 2024-12-31 | Outpatient (REF) | payer MEDICAID ==
[2024-12-31 18:02] LABS: HEPATITIS B SURFACE ANTIGEN NEGATIVE (NEGATIVE)
[2024-12-31 18:15] LABS: HIV 1&2 SCREEN NEGATIVE (NEGATIVE)
[2024-12-31 18:24] LABS: HEPATITIS B CORE ANTIBODY IGM NEGATIVE (NEGATIVE); HEPATITIS C VIRUS ABY INDEX 0.04 INDEX (<0.8)
== END ==
LOC: M LAB REF 16:36
PROVIDERS: ATTEND Pediatrics
DX: Z72.51 High risk heterosexual behavior (principal)

== ENCOUNTER 2025-01-18 15:07 | Outpatient (RCR) | payer MEDICAID | END 2025-01-19 | LOC: M OUTALCOH 15:07 | PROVIDERS: ATTEND Psychiatry & Neurology Psychiatry | DX: F15.20 Other stimulant dependence, uncomplicated (principal); F17.200 Nicotine dependence, unspecified, uncomplicated ==

== ENCOUNTER → 2025-06-10 | Outpatient (REF) | payer MEDICAID ==
[~2025-06-10] MED LIST changes: -IBUP-1022 PO; +IBUP600T42 PO
[2025-06-10 13:46] LABS: Trichomonas vaginalis (AMP) NOT DETECTED (NEGATIVE)
[2025-06-10 14:10] LABS: GC DNA AMPLIFICATION NEGATIVE (NEGATIVE)
[2025-06-10 14:25] LABS: HIV 1&2 SCREEN NEGATIVE (NEGATIVE)
[2025-06-10 14:33] LABS: HEPATITIS C VIRUS ABY INDEX 0.02 INDEX (<0.8)
[2025-06-10 14:36] LABS: GC DNA AMPLIFICATION NEGATIVE (NEGATIVE)
== END ==
LOC: M LAB REF 12:14
PROVIDERS: ATTEND Pediatrics
DX: Z72.51 High risk heterosexual behavior (principal)